=== PATIENT | female | born 1965 | race Two or more races ===

== ENCOUNTER 2017-08-23 20:35 | Inpatient (IN) | payer OTHER ==
--- NOTE | 2017-08-23 20:42 | PDOC ---
Rapid Medical Evaluation Time Seen by Provider: 08/23/17 20:36 Medical Evaluation: 08/23/17 20:37 I have performed a brief in-person evaluation of this patient. The patient presents with a chief complaint of: right leg pain- SCC Pertinent physical exam findings: VSS. AF. Lungs CTAB. conjunctiva pink, cap refill<3 seconds I have ordered the following: CBC, CMP, retic, sickle cell screen, ua, urine cx , dilaudid, benadryl The patient will proceed to the ED for further evaluation. Discharge Disposition - Diagnosis Leg pain, right - Referrals - Patient Instructions - Post Discharge Activity
[2017-08-23] MEDS ORDERED: HYDROmorphone HCL CARPU-JECT 2 MG/1 ML DISP.SYRIN IM ONE (20:44)
[2017-08-23 20:54] VITALS: BMI 32.4
--- NOTE | 2017-08-23 21:01 | PDOC ---
History of Present Illness - General History Source: Patient Exam Limitations: No Limitations - History of Present Illness Initial Comments: 08/23/17 21:31 The patient is a 52 year old female, with a significant past medical history of sickle cell anemia, enlarged spleen, and recent coccyx fracture, who presents to the emergency department with bilateral lower extremity pain since earlier today. Patient reports her symptoms are similar to her previous sickle cell crisis. She reports taking 2 Hydrocodone and Benadryl for her symptoms with minimal relief. She reports associated dizziness, but denies any fever, chills, cough, or headache. She denies any chest pain, shortness of breath, diaphoresis , or palpitations. She denies any abdominal pain, nausea, vomiting, diarrhea, or constipation. She denies any dysuria, hematuria, frequency, or urgency. Patient reports she recently moved from [place], where she was previously treated with Dilaudid or Morphine for her sickle cell crisis episodes. Patient reports she has had multiple blood transfusions for her sickle cell as a child, but none as an adult. Patient states she was recently evaluated by her insurance PCP, and states they noted high blood pressure, but did not start her on any medications. Allergies: NKDA Past Surgical History: Cholecystectomy, Section Social History: Non smoker. No ETOH or recreational drug use. PCP: Dr. Escobar <Shawnee Freeman - Last Filed: 08/23/17 21:31> <Imani Mcdaniel - Last Filed: 08/24/17 00:09> - General Chief Complaint: Pain, Acute Stated Complaint: SICKLE CELL CRISIS Time Seen by Provider: 08/23/17 20:36 Past History <Shawnee Freeman - Last Filed: 08/23/17 21:31> - Past Medical History COPD: No Other medical history: sickle cell disease - Surgical History Cholecystectomy: Yes - Suicide/Smoking/Psychosocial Hx Smoking History: Never smoked <Imani Mcdaniel - Last Filed: 08/24/17 00:09> - Past Medical History Allergies/Adverse Reactions: Allergies Allergy/AdvReac Type Severity Reaction Status Date / Time No Known Allergies Allergy Verified 08/23/17 20:38 Home Medications: Ambulatory Orders Folic Acid 1 mg PO DAILY 08/23/17 Gabapentin [Neurontin -] 300 mg PO DAILY 08/23/17 Oxycodone HCl/Acetaminophen [Percocet 5-325 mg Tablet] 1 - 2 tab PO Q6H PRN Review of Systems - Review of Systems Able to Perform ROS?: Yes Comments:: 08/23/17 21:31 GENERAL/CONSTITUTIONAL: No fever or chills. No weakness. HEAD, EYES, EARS, NOSE AND THROAT: No change in vision. No ear pain or discharge. No sore throat. GASTROINTESTINAL: No nausea, vomiting, diarrhea or constipation. GENITOURINARY: No dysuria, frequency, or change in urination. CARDIOVASCULAR: No chest pain or shortness of breath. RESPIRATORY: No cough, wheezing, or hemoptysis. MUSCULOSKELETAL: +Bilateral lower extremity pain. No joint or muscle swelling. No neck or back pain. SKIN: No rash NEUROLOGIC: No headache, vertigo, loss of consciousness, or change in strength/ sensation. ENDOCRINE: No increased thirst. No abnormal weight change. HEMATOLOGIC/LYMPHATIC: +Sickle cell anemia. No easy bleeding, or history of blood clots. ALLERGIC/IMMUNOLOGIC: No hives or skin allergy. <Shawnee Freeman - Last Filed: 08/23/17 21:31> *Physical Exam - Vital Signs Last Vital Signs Temp Pulse Resp BP Pulse Ox 98.6 F 76 20 152/98 99 08/23/17 20:38 08/23/17 20:38 08/23/17 20:38 08/23/17 20:38 08/23/17 20:38 - Physical Exam Comments: 08/23/17 21:32 Constitutional: Awake, alert, oriented. Speaking full sentences Head: Normocephalic. Atraumatic Eyes: PERRL. EOMI. Conjunctivae are not pale. ENT: Mucous membranes are moist and intact. Posterior pharynx without exudates or erythema. Uvula midline. Neck: Supple. Full ROM. No lymphadenopathy. Cardiovascular: Regular rate. Regular rhythm. S1, S2 regular. Distal pulses are 2+ and symmetric. Pulmonary/Chest: No evidence of respiratory distress. Clear to auscultation bilaterally No wheezing, rales or rhonchi. Abdominal: Soft and non-distended. There is no tenderness. No rebound, guarding or rigidity. No organomegaly. No palpable masses. Good bowel sounds. Back: No CVA tenderness. Musculoskeletal: No edema. No cyanosis. No clubbing. Full range of motion in all extremities. No calf tenderness. Radial/pedal pulses are intact and 2+ bilaterally Skin: Skin is warm and dry. No petechiae. No purpura. Neurological: Alert and oriented to person, place, and time. Cranial nerves II -XII are grossly intact. Normal speech. Strength is grossly symmetric. No sensory deficits. Psychiatric: Good eye contact. Normal interaction, affect and behavior. <Shawnee Freeman - Last Filed: 08/23/17 21:31> - Vital Signs Last Vital Signs Temp Pulse Resp BP Pulse Ox 98.6 F 76 20 152/98 99 08/23/17 20:38 08/23/17 20:38 08/23/17 20:38 08/23/17 20:38 08/23/17 20:38 <Imani Mcdaniel - Last Filed: 08/24/17 00:09> ED Treatment Course - Medications Given in the ED: ED Medications Discontinued Medications Generic Name Dose Route Start Last Admin Trade Name Freq PRN Reason Stop Dose Admin Hydromorphone HCl 2 mg 08/23/17 20:44 08/23/17 21:00 Dilaudid Injection - IM 08/23/17 20:45 Not Given ONCE ONE <Shawnee Freeman - Last Filed: 08/23/17 21:31> - LABORATORY CBC & Chemistry Diagram: 08/23/17 21:30 08/23/17 22:00 - Medications Given in the ED: ED Medications Discontinued Medications Generic Name Dose Route Start Last Admin Trade Name Freq PRN Reason Stop Dose Admin Hydromorphone HCl 2 mg 08/23/17 20:44 08/23/17 21:00 Dilaudid Injection - IM 08/23/17 20:45 Not Given ONCE ONE <Imani Mcdaniel - Last Filed: 08/24/17 00:09> Medical Decision Making - Medical Decision Making 08/23/17 21:40 a/p: 52yo female with SCD presents c/o b/l LE pain which is typical for her SCD and crisis -no cp/sob/cough/f/c -no abd pain -took 2 hydrocodone at home without relief of pain -normally treated in [facility] - recently relocated to [place] - does not have a bench hand machine -on folic acid, but not hydroxyurea -will check labs, retic count -will give ivf hydration, pain control, nausea control -will monitor and reassess 08/24/17 2250 pt still in pain, will remedicate, retic pending 08/24/17 00:08 pt states pain is improved, but not gone elevated retic and wbc and tbili concerning for acute pain crisis will admit microblog sent to [facility] 08/24/17 00:09 case discussed with [facility] - accepts pt to service <Imani Mcdaniel - Last Filed: 08/24/17 00:09> *DC/Admit/Observation/Transfer - Attestations Scribe Attestion: 08/23/17 21:32 Documentation prepared by Shawnee Freeman, acting as medical lab technician for Imani Mcdaniel DO. <Shawnee Freeman - Last Filed: 08/23/17 21:31> - Discharge Dispostion Decision to Admit order: Yes - Attestations Physician Attestion: 08/24/17 00:07 I, Dr. Imani Mcdaniel DO, attest that this document has been prepared under my direction and personally reviewed by me in its entirety. I further attest, that it accurately reflects all work, treatment, procedures and medical decision -making performed by me. <Imani Mcdaniel - Last Filed: 08/24/17 00:09> Diagnosis at time of Disposition: Leg pain, right, Sickle cell pain crisis - Discharge Dispostion Condition at time of disposition: Fair - Referrals Referrals: Samantha Escobar NP [Primary Care Provider] - - Patient Instructions - Post Discharge Activity
[2017-08-23] MEDS ORDERED: morphine CARPU-JECT 4 MG/1 ML DISP.SYRIN IVPUSH ONE ×2 (21:19→23:01)
[2017-08-23] MEDS ORDERED: ONDANSETRON 4 MG/2 ML VIAL IVPUSH ONE (21:19)
[2017-08-23] MEDS ORDERED: diphenhydrAMINE HCL 25 MG CAPSULE (FP) PO ONE ×2 (21:19→21:55)
[2017-08-23] MEDS ORDERED: SODIUM CHLORIDE 0.9% 1000 ML INFUS.BAG IV ONE ×2 (21:19→23:01)
[2017-08-23] MEDS ORDERED: ONDANSETRON 4 MG/2 ML VIAL ONE (21:33)
[2017-08-23] MEDS ORDERED: morphine SULFATE 4 MG/ML VIAL ONE ×2 (21:33→23:20)
[2017-08-23 21:39] LABS: BASO % 0.4 % (0-2.0); EOS % 0.1 % (0-4.5); HEMATOCRIT 32.2 % (32.4-45.2); HEMOGLOBIN 10.8 GM/dL (10.7-15.3); MCHC 33.5 g/dl (32.0-36.0); MEAN CELL VOLUME 77.5 fl (80-96); MEAN PLT VOLUME 8.6 fl (7.5-11.1); MONO % 4.4 % (3.8-10.2); NEUT % 83.1 % (42.8-82.8); PLATELET COUNT 366 K/MM3 (134-434); RBC 4.16 M/mm3 (3.60-5.2); RDW 18.9 % (11.6-15.6); WHITE BLOOD COUNT 16.6 K/mm3 (4.0-10.0)
[2017-08-23 22:53] LABS: ALBUMIN 3.8 g/dl (3.4-5.0); ANION GAP 8 (8-16); BLOOD UREA NITROGEN 13 mg/dL (7-18); CHLORIDE 104 mmol/L (98-107); CO2 26 mmol/L (21-32); CREATININE 0.6 mg/dL (0.55-1.02); GLUCOSE,RANDOM 121 mg/dL (74-106); POTASSIUM 4.6 mmol/L (3.5-5.1); SGOT/AST 19 U/L (15-37); SGPT/ALT 32 U/L (12-78); SODIUM 138 mmol/L (136-145)
[2017-08-23 22:55] LABS: ALK PHOS 128 U/L (45-117); BILIRUBIN,TOTAL 1.3 mg/dL (0.2-1.0); TOT PROT 7.9 g/dl (6.4-8.2)
[2017-08-23 23:10] LABS: URINE APPEARANCE CLEAR; URINE BILIRUBIN NEGATIVE (<2.0 mg/dL); URINE COLOR STRAW; URINE GLUCOSE (UA) NEGATIVE (NEGATIVE); URINE KETONE NEGATIVE (NEGATIVE); URINE LEUK ESTERASE TRACE (NEGATIVE); URINE NITRITE NEGATIVE (NEGATIVE); URINE UROBILINOGEN NEGATIVE mg/dL (0.2-1.0)
[2017-08-23 23:13] LABS: URINE PROTEIN 1+ (NEGATIVE)
[2017-08-23 23:14] LABS: EPI CELLS RARE /HPF (FEW); URINE MUCUS RARE
[2017-08-23 23:53] LABS: RETICULOCYTES 5.01 % (0.5-1.5)
[2017-08-24] MEDS ORDERED: morphine SULFATE 4 MG/ML VIAL IVPUSH PRN (00:29)
[2017-08-24] MEDS ORDERED: SODIUM CHLORIDE 1,000 ML IV SCH ×2 (00:30→13:15)
--- NOTE | 2017-08-24 00:54 | PN ---
Teaching Attending Note Name of Resident: Yakov Palmer ATTENDING PHYSICIAN STATEMENT I saw and evaluated the patient. I reviewed the resident's note and discussed the case with the resident. I agree with the resident's findings and plan as documented. SUBJECTIVE: Patient is a 52 year old woman with past medical history of sickle cell disease , cholecystectomy, laser therapy to right eye, enlarged spleen, and recent coccyx fracture (fell in the bathroom), who presents to the ER with bilateral lower extremity pain since earlier today. Patient reports her symptoms are similar to her previous sickle cell crisis. She reports taking 2 Hydrocodone and Benadryl for her symptoms with minimal relief. She reports associated dizziness, but denies any fever, chills, cough, or headache. She denies any chest pain, shortness of breath, diaphoresis, or palpitations. Her last sickle cell pain crisis was in May 2017a nd she got blood transfusion as a child. Her PCP noted that her BP was high last week but did not start her on any medications. She had a CT scan of her back to evaluate her coccyx fracture yesterday at [facility]. She has had 2 C-sections and has 2 children and just moved to the area from [place]. OBJECTIVE: Vital Signs Period Temp Pulse Resp BP Sys/Hutson Pulse Ox Last 24 Hr 98.6 F 76 20 152/98 99 HEENT: No Jaundice, eye redness or discharge, PERRLA, EOMI. Normocephalic, atraumatic. External ears are normal and hearing is grossly intact. No nasal discharge. Neck: Supple, nontender. No palpable adenopathy or thyromegaly. No JVD Chest: Good effort. Clear to auscultation and percussion. Heart: Regular. No S3, rub or murmur Abdomen: Not distended, soft, nontender and no HSM. No rebound or guarding. Normoactive bowel sounds. Ext: Peripheral pulses intact. No leg edema. Tender lumbosacral area. Skin: Warm and dry. No petechiae, rash or ecchymosis. Neuro: Alert. Oriented x3. CN 2-12 grossly intact. Sensation grossly intact in all four extremities and DTR are symmetric. Current Medications Generic Name Dose Route Start Last Admin Trade Name Freq PRN Reason Stop Dose Admin Heparin Sodium (Porcine) 5,000 unit 08/24/17 06:00 Heparin - SQ TID RAUL Sodium Chloride 1,000 mls @ 125 mls/hr 08/24/17 00:30 08/24/17 00:30 Normal Saline - IV 125 mls/hr ASDIR RAUL Administration Morphine Sulfate 4 mg 08/24/17 00:29 Morphine Sulfate IVPUSH Q4H PRN PAIN LEVEL 6-10 Home Medications Medication Instructions Recorded Folic Acid 1 mg PO DAILY 08/23/17 Gabapentin [Neurontin -] 300 mg PO DAILY 08/23/17 Oxycodone HCl/Acetaminophen 1 - 2 tab PO Q6H PRN 08/23/17 [Percocet 5-325 mg Tablet] Abnormal Lab Results 08/23/17 08/23/17 08/23/17 21:18 21:30 22:00 WBC 16.6 H Hct 32.2 L MCV 77.5 L RDW 18.9 H Neutrophils % 83.1 H Nucleated RBC % 1 H Retic Count 5.01 H Random Glucose 121 H Total Bilirubin 1.3 H Alkaline Phosphatase 128 H Urine Protein 1+ H ASSESSMENT AND PLAN: 1. Sickle cell pain crisis - Will treat her with IV morphine 2 mg q 4 hours PRN , IV NS at 125 ml/hour, folic acid and consult hematology - consider hydroxyurea therapy! Send blood for HB electrophoresis since her genotype is unknown. Leukocytosis likely due to sickle cell crisis. No other evidence of infection - so no need for antibiotics. Will monitor closely. 2. Coccyx fracture - Get result of CT scan from [facility] and consult PT. 3. DVT prophylaxis - Heparin 5000u sq tid 4. Advance directives - Full code
[2017-08-24] MEDS: HEPARIN NA (PORCINE) 5,000 UNITS/ML 1ML VIAL SQ SCH ×3 (06:00→21:17)
[2017-08-24] MEDS ORDERED: morphine SULFATE 4 MG/ML VIAL ONE (06:11)
[2017-08-24] MEDS ORDERED: HEPARIN NA (PORCINE) 5,000 UNITS/ML 1ML VIAL ONE (06:19)
--- NOTE | 2017-08-24 11:13 | EKG ---
Test Reason : Blood Pressure : / mmHG Vent. Rate : 075 BPM Atrial Rate : 075 BPM P-R Int : 150 ms QRS Dur : 084 ms QT Int : 386 ms P-R-T Axes : 049 040 043 degrees QTc Int : 431 ms NORMAL SINUS RHYTHM NORMAL ECG NO PREVIOUS ECGS AVAILABLE Confirmed by DONTE RENTERIA MD ([id number]) on 08/24/2017 11:12:34 AM Referred By: Confirmed By:DONTE RENTERIA MD
[2017-08-24] MEDS ORDERED: KETOROLAC TROMETHAMINE 30 MG/1 ML VIAL IVPUSH PRN (12:34)
--- NOTE | 2017-08-24 12:47 | CONSULT ---
Consult Consult Specialty:: Hematology - History of Present Illness History of Present Illness: 52 year old woman with past medical history of sickle cell disease, cholecystectomy, laser therapy to right eye, enlarged spleen, and recent coccyx fracture (fell in the bathroom), who presents to the ER with bilateral lower extremity pain since earlier today. Patient reports her symptoms are similar to her previous sickle cell crisis. She reports taking 2 Hydrocodone and Benadryl for her symptoms with minimal relief. She reports associated dizziness, but denies any fever, chills, cough, or headache. She denies any chest pain, shortness of breath, diaphoresis, or palpitations. Her last sickle cell pain crisis was in May 2017a nd she got blood transfusion as a child. Her PCP noted that her BP was high last week but did not start her on any medications. She had a CT scan of her back to evaluate her coccyx fracture yesterday at [facility]. She has had 2 C-sections and has 2 children and just moved to the area from [place]. - History Source History Provided By: Patient - Smoking History Smoking history: Never smoked Home Medications - Allergies Allergies/Adverse Reactions: Allergies Allergy/AdvReac Type Severity Reaction Status Date / Time No Known Allergies Allergy Verified 08/23/17 20:38 - Home Medications Home Medications: Ambulatory Orders Folic Acid 1 mg PO DAILY 08/23/17 Gabapentin [Neurontin -] 300 mg PO DAILY 08/23/17 Oxycodone HCl/Acetaminophen [Percocet 5-325 mg Tablet] 1 - 2 tab PO Q6H PRN Famotidine [Pepcid] 1 tab PO HS 08/24/17 Hydrocodone/Acetaminophen [Hydrocodone-Acetamin 5-325 mg] 1 tab PO Q6H 08/24/17 Hydrocortisone 2.5% Topical Cr [Anusol-Hc -] 1 unit PRN 08/24/17 Naproxen 500 mg PO BID 08/24/17 Physical Exam Vital Signs: Vital Signs Temperature 98.5 F 08/24/17 07:15 Pulse Rate 66 08/24/17 07:15 Respiratory Rate 18 08/24/17 07:15 Blood Pressure 151/87 08/24/17 07:15 O2 Sat by Pulse Oximetry (%) 97 08/24/17 07:15 Constitutional: Yes: Mild Distress HENT: Yes: Atraumatic Neck: Yes: Supple, Trachea Midline Cardiovascular: Yes: Regular Rate and Rhythm Respiratory: Yes: Regular, CTA Bilaterally Gastrointestinal: Yes: Normal Bowel Sounds, Soft, Abdomen, Obese Extremities: Yes: WNL, Other (tenderness all over ricky LLE LLE calf tenderness) Edema: No Labs: CBC, BMP 08/23/17 21:30 08/23/17 22:00 Imaging - Results X-ray: Pending Assessment/Plan SC ? SS? ( pt unaware) Hemoglobin electrophoresis daily CBC/LDH/Retic count --LOS, presently not in avid hemolysis. ordered US LE to r/o DVT supportive care with IVF/Pain management/folate coccyx fracture-mgmt per primary needs f.u with [facility] S[facility] cell clinic
[2017-08-24] MEDS ORDERED: MORPHINE SULFATE 10 MG/1 ML *VIAL IVPUSH PRN (13:10)
--- NOTE | 2017-08-24 15:55 | PN ---
Teaching Attending Note Name of Resident: Young Kenney ATTENDING PHYSICIAN STATEMENT I saw and evaluated the patient. I reviewed the resident's note and discussed the case with the resident. I agree with the resident's findings and plan as documented. SUBJECTIVE:c/o total LLE pain. diffuse pain not worse in certain area. fell in the bathroom the other day and went to [facility] who told her she fractured her coccyx and was sent home. pt is unable to ambulate due to the pain. previous painful crisis she has full body pain. denies Cp, SOB, fever, chills, N/v/C/D just moved here from [place] only was hospitalized as a child once for sickle cell crisis and received blood transfusion OBJECTIVE: Last Vital Signs Temp Pulse Resp BP Pulse Ox 98.1 F 77 18 138/86 97 08/24/17 12:43 08/24/17 12:43 08/24/17 13:04 08/24/17 12:43 08/24/17 13:04 General NAD CV S1 s2 RRR no murmur/rub/gallop Lungs CTA B/L no wheezing/rales/ronchi Abdomen soft NT/ND Back no bone or muscle point tenderness. some restriction in forward flexion at the hip due to pain Extremities diffuse muscular tenderness of the leg. refuses passive ROM. is able to slightly flex at the knee. ASSESSMENT AND PLAN: 52yo F with PMH Sickle cell disease and recent coccyx fracture presenting for severe sudden onset of RLE pain 1. RLE pain- possible radicular pain with recent fracture vs DVT vs sickle cell crisis. check doppler to r/o DVT. check XR of the spine to evaluate for fracture. less likely could be sickle cell crisis. not able to do detailed physical exam due to pain. medical release form sent to obtain records from [facility] to see what imaging studies were done. start high dose IVF, supplemental oxygen and pain control. if this is truely crisis and has hx of crisis every 2 months she would benefit from starting hydroxyurea. would hold for now. heme consulted. PT eval 2. Leukcytosis- likely reactive vs from sickle crisis. UA negative. will hold abx at this time 3. DVT ppx- hep sq
--- NOTE | 2017-08-24 21:14 | PN ---
Physical Exam: SUBJECTIVE: Patient seen and examined at bedside. Pt states she has pain in LLE. OBJECTIVE: Vital Signs Period Temp Pulse Resp BP Sys/Hutson Pulse Ox Last 24 Hr 98.0 F-98.5 F 66-77 18-20 138-151/73-87 97-97 Gen: initially lying comfortably in bed HEENT: NCAT Neck: supple no jvd Cardio: rrr, normal s1s2, no m/r/g Pulm: cta b/l Abd: soft nontender, normal bs Ext: 2+ pulses, no edema. LLE variably tender to palpation. ROM exam limited by pain Neuro: strength intact throughout. Sensation intact throughout. Straight leg test not done b/c of pain Laboratory Results - last 24 hr 08/23/17 08/23/17 08/23/17 21:18 21:30 21:30 WBC 16.6 H RBC 4.16 Hgb 10.8 Hct 32.2 L MCV 77.5 L MCH 26.0 MCHC 33.5 RDW 18.9 H Plt Count 366 MPV 8.6 Absolute Neuts (auto) 13.8 Neutrophils % 83.1 H Lymphocytes % 12.0 Monocytes % 4.4 Eosinophils % 0.1 Basophils % 0.4 Nucleated RBC % 1 H Retic Count 5.01 H Sickle Cell Screen Sodium Cancelled Potassium Cancelled Chloride Cancelled Carbon Dioxide Cancelled Anion Gap Cancelled BUN Cancelled Creatinine Cancelled Creat Clearance w eGFR Cancelled Random Glucose Cancelled Calcium Cancelled Total Bilirubin Cancelled AST Cancelled ALT Cancelled Alkaline Phosphatase Cancelled LD Total Total Protein Cancelled Albumin Cancelled Urine Color Straw Urine Appearance Clear Urine pH 7.0 Ur Specific Roggen 1.009 Urine Protein 1+ H Urine Glucose (UA) Negative Urine Ketones Negative Urine Blood Negative Urine Nitrite Negative Urine Bilirubin Negative Urine Urobilinogen Negative Ur Leukocyte Esterase Trace Urine WBC (Auto) 12 Urine RBC (Auto) <1 Ur Epithelial Cells Rare Urine Mucus Rare 08/23/17 08/23/17 08/24/17 21:30 22:00 10:30 WBC RBC Hgb Hct MCV MCH MCHC RDW Plt Count MPV Absolute Neuts (auto) Neutrophils % Lymphocytes % Monocytes % Eosinophils % Basophils % Nucleated RBC % Retic Count Sickle Cell Screen Pos Sodium 138 Potassium 4.6 Chloride 104 Carbon Dioxide 26 Anion Gap 8 BUN 13 Creatinine 0.6 Creat Clearance w eGFR > 60 Random Glucose 121 H Calcium 9.0 Total Bilirubin 1.3 H AST 19 ALT 32 Alkaline Phosphatase 128 H LD Total 219 Total Protein 7.9 Albumin 3.8 Urine Color Urine Appearance Urine pH Ur Specific Roggen Urine Protein Urine Glucose (UA) Urine Ketones Urine Blood Urine Nitrite Urine Bilirubin Urine Urobilinogen Ur Leukocyte Esterase Urine WBC (Auto) Urine RBC (Auto) Ur Epithelial Cells Urine Mucus Active Medications Generic Name Dose Route Start Last Admin Trade Name Freq PRN Reason Stop Dose Admin Folic Acid 1 mg 08/25/17 10:00 Folic Acid - PO DAILY RAUL Heparin Sodium (Porcine) 5,000 unit 08/24/17 06:00 08/24/17 14:16 Heparin - SQ 5,000 unit TID RAUL Administration Sodium Chloride 1,000 mls @ 150 mls/hr 08/24/17 13:15 08/24/17 17:54 Normal Saline - IV 150 mls/hr ASDIR RAUL Administration Ketorolac Tromethamine 30 mg 08/24/17 12:34 Toradol Injection - IVPUSH 08/29/17 12:33 Q6H PRN PAIN LEVEL 1-5 Morphine Sulfate 4 mg 08/24/17 13:10 08/24/17 16:56 Morphine Injection - IVPUSH 4 mg Q4H PRN Administration PAIN LEVEL 7 - 10 ASSESSMENT/PLAN: Pt is a 52 y/o F with H sickle cell disease (per pt diagnosed in more than 20 years ago) and recent coccyx fracture (diagnosed at [facility]). #LLE pain -? sickle crisis -? radiculopathy -Spine XR -U/S to r/o DVT -f/u records from [facility] -pain control #Sickle cell -Heme consulted -HbS pending -frequent crises #Leukocytosis -? 2/2 pain and crisis -afebrile -f/u labs tomorrow #FEN -NS -lytes wnl -reg diet #PPx -HSQ #Dispo -Med surg Young Kenney MD PGY-1 IM Visit type - Emergency Visit Emergency Visit: Yes ED Registration Date: 08/24/17 Care time: The patient presented to the Emergency Department on the above date and was hospitalized for further evaluation of their emergent condition. - New Patient This patient is new to me today: Yes Date on this admission: 08/24/17 - Critical Care Critical Care patient: No - Discharge Referral Referred to [facility] Med P.C.: No
[2017-08-25] MEDS: HEPARIN NA (PORCINE) 5,000 UNITS/ML 1ML VIAL SQ SCH ×2 (06:17→13:29)
[2017-08-25 08:10] LABS: BASO % 0.5 % (0-2.0); EOS % 5.2 % (0-4.5); HEMATOCRIT 30.1 % (32.4-45.2); HEMOGLOBIN 10.2 GM/dL (10.7-15.3); LYMPH % 30.3 % (8-40); MCHC 33.7 g/dl (32.0-36.0); MEAN CELL VOLUME 77.3 fl (80-96); MEAN PLT VOLUME 8.9 fl (7.5-11.1); MONO % 5.8 % (3.8-10.2); NEUT % 58.2 % (42.8-82.8); PLATELET COUNT 301 K/MM3 (134-434); WHITE BLOOD COUNT 15.1 K/mm3 (4.0-10.0)
[2017-08-25 08:54] LABS: ALBUMIN 3.4 g/dl (3.4-5.0); ANION GAP 8 (8-16); BLOOD UREA NITROGEN 11 mg/dL (7-18); CALCIUM 8.7 mg/dL (8.5-10.1); CHLORIDE 107 mmol/L (98-107); CO2 25 mmol/L (21-32); GLUCOSE,RANDOM 89 mg/dL (74-106); POTASSIUM 4.1 mmol/L (3.5-5.1); SODIUM 140 mmol/L (136-145)
[2017-08-25 08:58] LABS: ALK PHOS 119 U/L (45-117); BILIRUBIN,TOTAL 1.3 mg/dL (0.2-1.0); CREATININE 0.6 mg/dL (0.55-1.02); LDH 241 U/L (84-246); PHOSPHOROUS 3.4 mg/dL (2.5-4.9); SGOT/AST 18 U/L (15-37); SGPT/ALT 28 U/L (12-78); TOT PROT 7.1 g/dl (6.4-8.2)
[2017-08-25] MEDS ORDERED: FOLIC ACID 1 MG TABLET (FP) PO SCH (10:00)
[2017-08-25] MEDS ORDERED: PT OWN MED DRAWER 7, Y5N ONE (10:16)
--- NOTE | 2017-08-25 14:07 | PN ---
Progress Note (short form) - Note Progress Note: Pt seen and examined. feels much better as per her in terms of her lower extremity pain. coccyx still bother her Constitutional: Yes: No distress HENT: Yes: Atraumatic Neck: Yes: Supple, Trachea Midline Cardiovascular: Yes: Regular Rate and Rhythm Respiratory: Yes: Regular, CTA Bilaterally Gastrointestinal: Yes: Normal Bowel Sounds, Soft, Abdomen, Obese Extremities: Yes: WNL, Edema: NoLast Vital Signs Temp Pulse Resp BP Pulse Ox 98.2 F 73 20 142/83 99 08/25/17 06:00 08/25/17 06:00 08/25/17 12:00 08/25/17 06:00 08/25/17 12:00 CBC, BMP 08/25/17 06:10 08/25/17 06:10 Current Medications Generic Name Dose Route Start Last Admin Trade Name Freq PRN Reason Stop Dose Admin Folic Acid 1 mg 08/25/17 10:00 08/25/17 10:39 Folic Acid - PO 1 mg DAILY RAUL Administration Heparin Sodium (Porcine) 5,000 unit 08/24/17 06:00 08/25/17 13:29 Heparin - SQ 5,000 unit TID RAUL Administration Sodium Chloride 1,000 mls @ 150 mls/hr 08/24/17 13:15 08/24/17 17:54 Normal Saline - IV 150 mls/hr ASDIR RAUL Administration Ketorolac Tromethamine 30 mg 08/24/17 12:34 Toradol Injection - IVPUSH 08/29/17 12:33 Q6H PRN PAIN LEVEL 1-5 Morphine Sulfate 4 mg 08/24/17 13:10 08/24/17 16:56 Morphine Injection - IVPUSH 4 mg Q4H PRN Administration PAIN LEVEL 7 - 10 SC ? SS? ( pt unaware) Hemoglobin electrophoresis--pending Elevated white cells-likely nucleated reds being counted too pain much controlled coccyx fracture-mgmt per primary make sure US is negative for DVT needs f.u with [facility] Sickle cell clinic [facility] sickle cell clinic: 08/29/2017 1000am gail [address] [phone]
[2017-08-25] MEDS ORDERED: guaiFENesin 200 MG/10 ML 10 ML UNIT-DOSE CUPS PO PRN (14:27)
[2017-08-25] MEDS ORDERED: ACETAMINOPHEN 325 MG TABLET (FP) PO PRN (14:30)
[2017-08-25] MEDS ORDERED: oxyCODONE HCL 5 MG TABLET PO PRN (14:30)
[2017-08-25 15:37] VITALS: BP 127/66; PULSE 69; TEMP 98.4
--- NOTE | 2017-08-25 16:16 | PN ---
Teaching Attending Note Name of Resident: Young Kenney ATTENDING PHYSICIAN STATEMENT I saw and evaluated the patient. I reviewed the resident's note and discussed the case with the resident. I agree with the resident's findings and plan as documented. SUBJECTIVE:c/o coccyx pain but states pain in the leg has resolved. denies CP, SOB, fever, chills, N/V/C/D, bladder/bowel incontinence OBJECTIVE: Last Vital Signs Temp Pulse Resp BP Pulse Ox 98.4 F 69 18 127/66 99 08/25/17 15:36 08/25/17 15:36 08/25/17 15:36 08/25/17 15:36 08/25/17 12:00 General NAD CV S1 s2 RRR no murmur/rub/gallop Lungs CTA B/L no wheezing/rales/ronchi Abdomen soft NT/ND Back + coccyx point tenderness. no muscle tenderness. good flexion at the hips. Extremities no muscular tenderness of the thigh or calf. good strength on flexion/extension at the hip and knee. sensation grossly intact. ASSESSMENT AND PLAN: 52yo F with PMH Sickle cell disease and recent coccyx fracture presenting for severe sudden onset of RLE pain 1. RLE pain- possible radicular pain with recent fracture vs DVT vs sickle cell crisis. clinically improved. pain controlled without medication. will f/u doppler and XR. if both are negative. (expected to have fx at level of coccyx but assessing for other fx). can d/c home. will need to f/u with sickle cell clinic for further management. PT eval. 2. Leukcytosis- likely reactive vs from sickle crisis. UA negative. will hold abx at this time 3. DVT ppx- hep sq 4. d/c home pending imaging studies
--- NOTE | 2017-08-25 18:54 | DS ---
Physical Exam: SUBJECTIVE: Patient seen and examined at bedside. No complaints at this time. Pt states the crisis has gone. OBJECTIVE: Vital Signs Period Temp Pulse Resp BP Sys/Hutson Pulse Ox Last 24 Hr 98.2 F-98.5 F 69-73 18-20 127-143/66-83 99-99 PHYSICAL EXAM Gen: sitting in bed, nad HEENT: NCAT, perrl, eomi, moist membranes Neck: supple no jvd Cardiac: rrr norm s1s2 Pulm: cta Abd: soft nontender Ext: normal ROM, no tenderness to palpation Neuro: no focal deficits. LABS Laboratory Results - last 24 hr 08/25/17 08/25/17 08/25/17 06:10 06:10 06:10 WBC 15.1 H RBC 3.90 Hgb 10.2 L Hct 30.1 L MCV 77.3 L MCH 26.0 MCHC 33.7 RDW 19.0 H Plt Count 301 MPV 8.9 Absolute Neuts (auto) 8.8 Neutrophils % 58.2 D Lymphocytes % 30.3 D Monocytes % 5.8 Eosinophils % 5.2 H D Basophils % 0.5 Nucleated RBC % 1 H Retic Count 5.59 H D Sodium 140 Potassium 4.1 Chloride 107 Carbon Dioxide 25 Anion Gap 8 BUN 11 Creatinine 0.6 Creat Clearance w eGFR > 60 Random Glucose 89 Calcium 8.7 Phosphorus 3.4 Magnesium 2.0 Total Bilirubin 1.3 H AST 18 ALT 28 Alkaline Phosphatase 119 H LD Total 241 Total Protein 7.1 Albumin 3.4 HOSPITAL COURSE: Date of Admission:08/24/17 Date of Discharge: 08/25/17 Pt is a 52 y/o F with PMH sickle cell disease (per pt diagnosed in more than 20 years ago) and recent coccyx fracture (diagnosed at [facility]) who presented to the ED with sickle crisis. She was put on Obs. Pt's sickle cell crisis presented with pain in the LLE. Pt states that she may have pain in any region of her body during a sickling crisis, but this time it was her left leg. 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 A LLE U/S was done, which ruled out DVT as a cause of her pain. Pt developed leukocytosis, which was thought to be an expected biproduct of painful sickling crisis. After a night in the hospital, pain has resolved altogether. Pt states her crisis has passed. She stated that she recently had a diagnosis of coccygeal fracture at [facility]. A repeat L/S spine Xray was done and showed no obvious abnormalities. Pt is currently stable for d/c home. Minutes to complete discharge: 30 Discharge Summary Reason For Visit: SICKLE CELL, PAIN MANAGEMENT Condition: Good - Instructions Diet, Activity, Other Instructions: You were in the hospital because of leg pain and sickle cell crisis. You need to follow up at the [facility] sickle cell clinic: 08/29/2017 10:00am gail [address] [place] [address]. [phone] If you have any more symptoms, please return to the emergency department. Referrals: Samantha Escobar NP [Primary Care Provider] - 1 Week Petra Saldaña MD [Staff Physician] - 1 Week Disposition: HOME - Home Medications Comprehensive Discharge Medication List: Ambulatory Orders Folic Acid 1 mg PO DAILY 08/23/17 Gabapentin [Neurontin -] 300 mg PO DAILY 08/23/17 Oxycodone HCl/Acetaminophen [Percocet 5-325 mg Tablet] 1 - 2 tab PO Q6H PRN Famotidine [Pepcid] 1 tab PO HS 08/24/17 Hydrocodone/Acetaminophen [Hydrocodone-Acetamin 5-325 mg] 1 tab PO Q6H 08/24/17 Hydrocortisone 2.5% Topical Cr [Anusol-Hc -] 1 unit PRN 08/24/17 Naproxen 500 mg PO BID 08/24/17 Folic Acid - 1 mg PO DAILY #30 tablet 08/25/17 Guaifenesin [Robitussin -] 10 ml PO Q8H PRN #1 bottle 08/25/17 This patient is new to me today: No Emergency Visit: No Critical Care patient: No - Discharge Referral Referred to [facility] No
[2017-08-30 14:13] LABS: HGB SOLUBILITY Positive (Negative); Hgb A 0 % (96.4-98.8); Hgb C 45.8 % (0.0); Hgb F 0 % (0.0-2.0)
== END 2017-08-25 17:44 | disposition home or self-care (01) | DRG 812 ==
LOC: JER 20:35 → JERBED 08-24 00:07 → UNDOADMIN 08-24 00:19 → JERBED 08-24 00:19 → J8W 08-24 12:40
PROVIDERS: ADMIT Internal Medicine; ATTEND Internal Medicine
DX: D57.00 Hb-SS disease with crisis, unspecified (principal); R16.1 Splenomegaly, not elsewhere classified; S32.2XXG Fracture of coccyx, subsequent encounter for fracture with delayed healing; W18.30XD Fall on same level, unspecified, subsequent encounter; D72.829 Elevated white blood cell count, unspecified; M79.604 Pain in right leg
CPT/HCPCS: 36415; 71045-TC-FY; 72100-TC-FY; 80053; 81003; 81015; 83021; 83615; 83735; 84100; 85025; 85044; 85660; 87086; 87186; 93005; 93010; 93971-TC; 97116-GP; 97161-GP; 99283-25; J1644; J7030

== ENCOUNTER 2017-09-28 11:33 | Emergency (ER) | payer MEDICARE, OTHER ==
[2017-09-28 11:41] VITALS: BMI 32.7
--- NOTE | 2017-09-28 11:48 | PDOC ---
History of Present Illness - General Chief Complaint: Pain Stated Complaint: SICKLE CELL CRISIS, KNEE PAIN Time Seen by Provider: 09/28/17 11:47 History Source: Patient, Rod Buster Used - History of Present Illness Initial Comments: 09/28/17 13:11 52 year old female with sickle cell anemia presents to ED today for right hip pain, right knee pain since last night. She states she has had a productive ( yellow) cough and nasal congestion x4 days prior to her pain developing. She states these symptoms feel similar to her prior sickle cell crisises. 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 She states she has had a cholecystectomy, but she still has her spleen. She states she took ibuprofen 600 mg last night and this morning, which has slightly relieved her pain. She states morphine and dilaudid make her itchy and she does not like to take them. She also complains of a rash to her right arm, right abdomen and back. Past History - Past Medical History Allergies/Adverse Reactions: Allergies Allergy/AdvReac Type Severity Reaction Status Date / Time morphine Allergy Severe Rash Verified 09/28/17 11:38 Home Medications: Ambulatory Orders Gabapentin [Neurontin -] 300 mg PO DAILY 08/23/17 Oxycodone HCl/Acetaminophen [Percocet 5-325 mg Tablet] 1 - 2 tab PO Q6H PRN Famotidine [Pepcid] 1 tab PO HS 08/24/17 Hydrocortisone 2.5% Topical Cr [Anusol-Hc -] 1 unit TP PRN PRN 08/24/17 Naproxen 500 mg PO BID 08/24/17 Folic Acid - 1 mg PO DAILY #30 tablet 08/25/17 Ibuprofen [Motrin -] 600 mg PO TID PRN 09/28/17 Anemia: Yes (sickle cell anemia) COPD: No - Surgical History Cholecystectomy: Yes - Suicide/Smoking/Psychosocial Hx Smoking History: Never smoked Have you smoked in the past 12 months: No Information on smoking cessation initiated: No Hx Alcohol Use: No Drug/Substance Use Hx: No Substance Use Type: None Hx Substance Use Treatment: No Review of Systems - Review of Systems Comments:: 09/28/17 13:15 General: denies fever, chills, night sweats, generalized weakness. HEENT: admits to nasal congestion. denies sore throat, rhinorrhea, ear pain. Heart: denies chest pain, palpitations, syncope, lower extremity swelling. Respiratory: admits to cough and sputum production. denies shortness of breath, hematemesis. Abdomen: denies abdominal pain, nausea, vomiting, diarrhea, constipation, blood in stool. : denies dysuria, urinary frequency, hematuria. Musculoskeletal: admits to right knee pain and swelling, right hip pain. Neurological: admits to headache. denies dizziness, numbness, tingling. Skin: denies rash, laceration, abrasion. *Physical Exam - Vital Signs Last Vital Signs Temp Pulse Resp BP Pulse Ox 98.5 F 62 18 135/44 99 09/28/17 11:39 09/28/17 11:39 09/28/17 11:39 09/28/17 11:39 09/28/17 11:39 - Physical Exam Comments: 09/28/17 13:18 General: awake, alert and oriented X3, no apparent distress HEENT: head is normocephalic, atraumatic. EOMI. PERRLA. Neck: supple without lymphadenopathy Heart: regular rhythm. no murmurs, rubs or gallops. Lungs: clear to auscultation bilaterally. no crackles, rhonchi or wheezing. no stridor. Abdomen: soft, nontender. normal bowel sounds. no rebound, guarding, masses. Extremities: Pain to palpation of right hip. No pain to palpation of right knee. Right knee is minimally swollen as compared to the left. Pt is able to bear weight and walk unassisted. Peripheral pulses intact. No leg edema. Neurological: Alert. Oriented x3. CN 2-12 grossly intact. Moves all four extremities. Skin: erythematous, edmatous, blanching rash noted to right upper arm, left upper back, and right abdomen, consistent with hives. ED Treatment Course - LABORATORY CBC & Chemistry Diagram: 09/28/17 13:00 09/28/17 12:25 Medical Decision Making - Medical Decision Making 09/28/17 13:21 Initial history performed via auto tune up mechanic - [id number]. Initial Vital Signs Temp Pulse Resp BP Pulse Ox 98.5 F 62 18 135/44 99 09/28/17 11:39 09/28/17 11:39 09/28/17 11:39 09/28/17 11:39 09/28/17 11:39 Case discussed with attending, Dr. Rob. Based on the patient's symptoms I am concerned for an acute sickle cell crisis. Pending CBC, retic count, CMP, CXR, right knee XR and R hip/pelvis XR. 09/28/17 13:29 CXR read as negative for acute pulmonary disease. 09/28/17 13:48 Pt now has IV line. Canceling IM Toradol. Ordered IV. 09/28/17 13:55 Retic count elevated. R knee XR read as negative. R hip/pelvis XR read: sclerotic changes in the right acetabulum or right femoral head. Radiolucency is noted in the superior medial aspect o the right femoral head. Avascular necrosis of the right femoral head cannot be entirely excluded. MRI of the right hip may be considered for further evaluation. 09/28/17 14:08 Pt reassessed, she states her pain has improved but the rash on her arm is still itching. 09/28/17 14:29 Laboratory Results - last 24 hr 09/28/17 09/28/17 09/28/17 12:25 13:00 13:00 WBC 11.1 H RBC 3.92 Hgb 10.6 L Hct 31.1 L MCV 79.2 L MCH 27.1 MCHC 34.3 RDW 19.7 H Plt Count 279 MPV 8.8 Retic Count 4.39 H D Sodium 139 Potassium 4.7 Chloride 105 Carbon Dioxide 28 Anion Gap 6 L BUN 13 Creatinine 0.8 Creat Clearance w eGFR > 60 Random Glucose 97 Calcium 9.2 Total Bilirubin 1.4 H AST 31 ALT 44 Alkaline Phosphatase 128 H Total Protein 7.7 Albumin 3.9 09/28/17 14:59 Pt reassessed, states she is feeling better. Pt was able to ambulate on her own to the restroom. Pt will be discharged. I spoke with the patient about her results and the plan for her care via auto tune up mechanic - [id number]. She agrees with the plan. *DC/Admit/Observation/Transfer Diagnosis at time of Disposition: Sickle cell pain crisis - Discharge Dispostion Disposition: HOME Condition at time of disposition: Improved Decision to Admit order: No - Referrals Referrals: Davis Lopes MD [Staff Physician] - - Patient Instructions Printed Discharge Instructions: DI for Sickle Cell Anemia, Pain Crisis -- Adult Additional Instructions: Te vieron hoy por pillo crisis de dolor de clulas falciformes. Usted recibi lquidos intravenosos, Toradol para el dolor y Benadryl intravenoso para fitzgerald erupcin. Tu rodilla derecha XR era normal. Tu radiografa de cadera derecha no revel ningn cambio en tu radiografa previa de cadera. Tu radiografa de trax era normal. Por favor, Mantngase hidratado bebiendo moriah agua. [place] Motrin para fitzgerald dolor. Por favor, london un alergista para fitzgerald erupcin. le hemos dado la informacin para el doctor Moses. Por favor, edda pillo anabel con l. El seguimiento con fitzgerald mdico de atencin primaria en un plazo de 7 martínez. Por favor regrese al Departamento de emergencias si se desarrollan nuevos, empeorando o afectando los sntomas. Print Language: BELARUSIAN - Post Discharge Activity Forms/Work/School Notes: Back to Work
[2017-09-28] MEDS ORDERED: SODIUM CHLORIDE 1,000 ML IV STA (12:24)
[2017-09-28] MEDS ORDERED: KETOROLAC TROMETHAMINE 60 MG/2 ML VIAL IM ONE (13:07)
[2017-09-28] MEDS ORDERED: diphenhydrAMINE HCL 25 MG CAPSULE (FP) PO ONE ×2 (13:10→13:41)
[2017-09-28 13:19] LABS: HEMATOCRIT 31.1 % (32.4-45.2); HEMOGLOBIN 10.6 GM/dL (10.7-15.3); MCH 27.1 pg (25.7-33.7); MCHC 34.3 g/dl (32.0-36.0); MEAN CELL VOLUME 79.2 fl (80-96); MEAN PLT VOLUME 8.8 fl (7.5-11.1); PLATELET COUNT 279 K/MM3 (134-434); RBC 3.92 M/mm3 (3.60-5.2); RDW 19.7 % (11.6-15.6); WHITE BLOOD COUNT 11.1 K/mm3 (4.0-10.0)
--- NOTE | 2017-09-28 13:28 | PDOC ---
Attending Attestation - Medical Decision Making 09/28/17 13:38 Knee X-ray was reviewed by Dr. Rob and over-read by Radiology. The visualized osseous structures appear intact. No evidence of fracture, dislocation, or large suprapatellar joint effusion. Mild narrowing of the medial tibiofemoral joint compartment. No radiopaque foreign body seen. Hip/Pelvic X-ray was reviewed by Dr. Rob and over-read by Radiology. Impression: Sclerotic changes in the right acetabulum or right femoral head. Radiolucency is noted in the superior medial aspect of the right femoral head. Avascular necrosis of the right femoral head cannot be entirely excluded. MRI of the right hip may be considered for further evaluation. Chest X-ray was reviewed by Dr. Rob and over-read by Radiology. Impression: No evidence of active pulmonary disease. No pleural effusion, or pneumothorax is seen. No evidence of CHF. Documentation prepared by Sherine Curran, acting as medical records analyst for Ede Rob MD. <Sherine Curran - Last Filed: 09/28/17 13:38> - Resident Resident Name: Ana Hair - ED Attending Attestation I have performed the following: I have examined & evaluated the patient, The case was reviewed & discussed with the resident, I agree w/resident's findings & plan, Exceptions are as noted - HPI HPI: 09/28/17 13:28 The patient is a 52 year old female with a significant past medical history of sickle cell anemia, necrosis of right hip, who presents to the emergency department complaining of cold symptoms, rash, and RLE pain since last night. The patient reports cough and congestion that began this week, she states feels like a cold. Her RLE pain is localized to her knee and hip, which she reports is alleviated by Motrin and feels like her usual SC crisis. She also reports a rash to her RUE, back, legs that is itchy and minimally alleviated with Benadryl. The patient was admitted last month for a sickle cell crisis. The patient denies chest pain, shortness of breath, headache, and dizziness. Denies fevers, chills, nausea, vomiting, diarrhea, and constipation. Denies dysuria, frequency, urgency, and hematuria. Allergies: intravenous morphine (feels fiery) Past surgical history: cholecystectomy (inflamed but intact spleen), x2, Social history: No reported cigarette, alcohol, or drug use. PCP: Dr. Samantha Escobar - Physicial Exam PE: 09/28/17 13:33 GENERAL: Awake, alert, and fully oriented, in no acute distress HEAD: No signs of trauma EYES: PERRLA, EOMI, sclera anicteric, conjunctiva clear ENT: Auricles normal inspection, hearing grossly normal, nares patent, oropharynx clear without exudates. Moist mucosa NECK: Normal ROM, supple, no lymphadenopathy, JVD, or masses LUNGS: Breath sounds equal, clear to auscultation bilaterally. No wheezes, and no crackles HEART: Regular rate and rhythm, normal S1 and S2, no murmurs, rubs or gallops ABDOMEN: Soft, nontender, normoactive bowel sounds. No guarding, no rebound. No masses EXTREMITIES: Normal range of motion, no edema. No clubbing or cyanosis. No cords, erythema, or tenderness. WWP NEUROLOGICAL: Normal speech, cranial nerves intact, negative pronator drift, 5/ 5 strength in all 4 extremities, normal sensation to light touch in all 4 extremities, normal cerebellar exam, normal gait, normal reflexes and tone SKIN: Arms, back, legs with erythematous, edematous wheals consistent with urticaria - Medical Decision Making 09/28/17 13:34 52yo F presents with multiple complaints including cold symptoms, RLE pain consistent with SC crisis, and urticaria Will check labs including retics to work up crisis, IM toradol for pain control as pt states motrin helps the most Pt refusing IV at this time Will PO hydrate Given cold symptoms, will check CXR, pt has hx of acute chest For urticaria, will give benadryl 50mg and reassess 09/28/17 15:13 retic count mildly elevated, consistent with mild crisis Pt reports 0/10 pain at this time post toradol, ivf persistent urticaria, likely allergic - will refer to classified advertising supervisor No evidence of systemic sxs of respiratory, GI involvement CXR clear R Hip with avasc necrosis which pt has hx of requests dc home I discussed the physical exam findings, ancillary test results and final diagnoses with the patient. I answered all of the patient's questions. The patient was satisfied with the care received and felt comfortable with the discharge plan and treatment plan. The patient will call their primary care physician within 24 hours to arrange follow-up and will return to the Emergency Department with any new, persistent or worsening symptoms. <Ede Rob - Last Filed: 09/28/17 15:15>
[2017-09-28 13:38] LABS: ALBUMIN 3.9 g/dl (3.4-5.0); ANION GAP 6 (8-16); BLOOD UREA NITROGEN 13 mg/dL (7-18); CALCIUM 9.2 mg/dL (8.5-10.1); CHLORIDE 105 mmol/L (98-107); CO2 28 mmol/L (21-32); CREATININE 0.8 mg/dL (0.55-1.02); GLUCOSE,RANDOM 97 mg/dL (74-106); POTASSIUM 4.7 mmol/L (3.5-5.1); SGOT/AST 31 U/L (15-37); SGPT/ALT 44 U/L (12-78); SODIUM 139 mmol/L (136-145)
[2017-09-28 13:40] LABS: ALK PHOS 128 U/L (45-117); BILIRUBIN,TOTAL 1.4 mg/dL (0.2-1.0); TOT PROT 7.7 g/dl (6.4-8.2)
[2017-09-28] MEDS ORDERED: KETOROLAC TROMETHAMINE 30 MG/1 ML VIAL ONE (13:41)
[2017-09-28] MEDS ORDERED: KETOROLAC TROMETHAMINE 15 MG/ML VIAL IVPUSH ONE (13:47)
[2017-09-28] MEDS ORDERED: KETOROLAC TROMETHAMINE 30 MG/1 ML VIAL IVPUSH ONE (14:10)
[2017-09-28 16:15] VITALS: BP 130/76; PULSE 59; TEMP 97.9
== END 2017-09-28 15:53 | disposition home or self-care (01) ==
LOC: JER 11:33
PROC: 3E0337Z Introduction of Electrolytic and Water Balance Substance into Peripheral Vein, Percutaneous Approach (ICD-10-PCS; principal; 2017-09-28)
PROC: 3E0333Z Introduction of Anti-inflammatory into Peripheral Vein, Percutaneous Approach (ICD-10-PCS; 2017-09-28)
DX: D57.00 Hb-SS disease with crisis, unspecified (principal)
CPT/HCPCS: 36415; 71046-TC-FY; 73523-TC-FY; 73562-TC-RT-FY; 80053; 85027; 85044; 99284-25; J7030

== ENCOUNTER 2017-10-20 13:09 | Emergency (ER) | payer OTHER ==
[2017-10-20 13:26] VITALS: BP 124/67; PULSE 87; TEMP 98.6; BMI 31.6
--- NOTE | 2017-10-20 14:29 | PDOC ---
History of Present Illness - General Chief Complaint: Back Pain Stated Complaint: LT LEG/ HIP/ KNEE PAIN Time Seen by Provider: 10/20/17 13:51 History Source: Patient Exam Limitations: Clinical Condition - History of Present Illness Initial Comments: 10/20/17 14:24 Patient with history of sickle cell disease presenting with complain of left lower back pain and pain to posterior thigh area with numbness and tingling sensation in left groin area and posterior thigh which patient is concerning for possible blood clot given her medical history. Patient reported sensation of hardness and burning and left groin and upper thigh area since yesterday. Patient reported symptoms different from his sickle cell crisis pain area and denies any other symptoms Timing/Duration: 24 hours Severity: moderate Past History - Past Medical History Allergies/Adverse Reactions: Allergies Allergy/AdvReac Type Severity Reaction Status Date / Time No Known Drug Allergies Allergy Verified 10/20/17 13:20 Home Medications: Ambulatory Orders Methocarbamol [Robaxin -] 500 mg PO TID PRN #21 tablet 10/20/17 Naproxen 500 mg PO BID PRN #20 tablet. 10/20/17 Anemia: Yes (sickle cell anemia) COPD: No - Surgical History Cholecystectomy: Yes - Suicide/Smoking/Psychosocial Hx Smoking History: Never smoked Have you smoked in the past 12 months: No Hx Alcohol Use: No Drug/Substance Use Hx: No Substance Use Type: None Hx Substance Use Treatment: No Review of Systems - Review of Systems Able to Perform ROS?: Yes Is the patient limited Kinyarwanda proficient: No Constitutional: No: Chills, Diaphoresis, Fever, Loss of Appetite, Malaise, Night Sweats, Weakness, Weight Stable, Unintentional Wgt. Loss, Unexplained wgt Loss, Other HEENTM: No: Eye Pain, Blurred Vision, Tearing, Recent change in vision, Double Vision, Cataracts, Ear Pain, Ocular Prothesis, Ear Discharge, Nose Pain, Nose Congestion, Tinnitus, Nose Bleeding, Hearing Loss, Throat Pain, Throat Swelling , Mouth Pain, Dental Problems, Difficulty Swallowing, Mouth Swelling, Other Respiratory: No: Cough, Orthopnea, Shortness of Breath, SOB with Exertion, SOB at Rest, Stridor, Wheezing, Productive cough, Hemoptysis, Other Cardiac (ROS): No: Chest Pain, Edema, Irregular Heart Rate, Lightheadedness, Palpitations, Syncope, Chest Tightness, Other ABD/GI: No: Abdominal Distended, Abd. Pain w/ defecation, Blood Streaked Bowels , Constipated, Diarrhea, Difficulty Swallowing, Nausea, Poor Appetite, Poor Fluid Intake, Rectal Bleeding, Vomiting, Indigestion, Abdominal cramping, Tarry Stools, Other Musculoskeletal: Yes: Back Pain (left side), Muscle Pain (left lower back, thigh and groin areas). No: Joint Swelling, Joint Stiffness Integumentary: No: Bruising, Change in Color, Change in Hair/Nails, Dryness, Erythema, Flushing, Lesions, Lumps, Pallor, Pruritus, Rash, Sweating, Other Neurological: Yes: Numbness (left thigh and groin areas), Tingling (left groin and lateral thigh area). No: Paresthesia, Pre-Existing Deficit, Weakness All Other Systems: Reviewed and Negative *Physical Exam - Vital Signs Last Vital Signs Temp Pulse Resp BP Pulse Ox 98.6 F 87 19 124/67 97 10/20/17 13:20 10/20/17 13:20 10/20/17 13:20 10/20/17 13:20 10/20/17 13:20 - Physical Exam Comments: 10/20/17 14:28 GENERAL: Well developed, well nourished. Awake and alert. No acute distress. HEENT: Normocephalic, atraumatic. PERRLA, EOMI. No conjunctival pallor. Sclera are non- icteric. Moist mucous membranes. Oropharynx is clear. NECK: Supple. Full ROM. No JVD. Carotid pulses 2+ and symmetric, without bruits. No thyromegaly. No lymphadenopathy. CARDIOVASCULAR: Regular rate and rhythm. No murmurs, rubs, or gallops. Distal pulses are 2+ and symmetric. PULMONARY: No evidence of respiratory distress. Lungs clear to auscultation bilaterally. No wheezing, rales or rhonchi. ABDOMINAL: Soft. Non-tender. Non-distended. No rebound or guarding. No organomegaly. Normoactive bowel sounds. MUSCULOSKELETAL : moderate tenderness over left paracervical muscle of L5-S1 Normal range of motion at all joints. No bony deformities . No CVA tenderness. EXTREMITIES: No cyanosis. No clubbing. No edema. No calf tenderness. SKIN: Warm and dry. Normal capillary refill. No rashes. No jaundice. NEUROLOGICAL: Alert, awake, appropriate. Cranial nerves 2-12 intact. No deficits to light touch and temperature in face, upper extremities and lower extremities. No motor deficits in the in face, upper extremities and lower extremities. Normoreflexic in the upper and lower extremities. Normal speech. Toes are down- going bilaterally. Gait is normal without ataxia. PSYCHIATRIC: Cooperative. Good eye contact. Appropriate mood and affect. General Appearance: Yes: Nourished, Appropriately Dressed. No: Apparent Distress ED Treatment Course - RADIOLOGY Radiology Studies Ordered: Category Date Time Status DUPLEX VASCUL US-1 LEG [US] Stat Ultrasound 10/20/17 14:11 Ordered Medical Decision Making - Medical Decision Making 10/20/17 14:29 Patient with history of sickle cell crisis and chronic back pain present with complain of left-sided back pain with numbness and tingling sensation to left groin and upper thigh area since yesterday with patient consent for blood clot. Clinical exam shows normal sensory sensation to right thigh area with moderate tenderness to left lower back. No erythema or increased warmth to area of pain and no lower extremity swelling area Symptoms likely lumbago go with sciatica. Doppler of left extremity ordered to rule out thrombosis. Discharge home on NSAIDs if normal Dopplers 10/20/17 15:38 doppler of left LE negative for thrombosis. pt stable for home discharge on NSAIDS and muscle relaxer with orthopedics follow-up *DC/Admit/Observation/Transfer Diagnosis at time of Disposition: Lumbago Qualifiers: Chronicity: chronic Back pain laterality: left Sciatica presence: with sciatica Sciatica laterality: sciatica of left side Qualified Code(s): M54.42 - Lumbago with sciatica, left side; G89.29 - Other chronic pain - Discharge Dispostion Disposition: HOME Condition at time of disposition: Stable Decision to Admit order: No - Prescriptions Prescriptions: Methocarbamol [Robaxin -] 500 mg PO TID PRN #21 tablet PRN Reason: Back Pain Naproxen 500 mg PO BID PRN #[address] tablet.[address] MILIAN Reason: pain - Referrals Referrals: Shanti Johansen MD [Primary Care Provider] - Guy Tidwell MD [Staff Physician] - - Patient Instructions Printed Discharge Instructions: DI for Sciatica, DI for Back Pain With Sciatica Additional Instructions: take medication as prescribed for symptoms. follow-up with orthopedics for possible MRI if symptoms persists Print Language: KAZAKH - Post Discharge Activity
== END 2017-10-20 15:54 | disposition home or self-care (01) ==
LOC: JERFT 13:09
DX: M54.42 Lumbago with sciatica, left side (principal); G89.29 Other chronic pain
CPT/HCPCS: 93971-TC; 99281-25

== ENCOUNTER 2017-11-29 10:40 | Emergency (ER) | payer MEDICARE, OTHER ==
[2017-11-29 10:44] VITALS: BMI 31.6
--- NOTE | 2017-11-29 11:01 | PDOC ---
History of Present Illness - History of Present Illness Initial Comments: 11/29/17 12:24 The patient is a 52 year old female, with a significant past medical history of sickle cell anemia, who presents to the emergency department with pain to her right arm today . She states she developed right upper back pain on Monday which has now radiated to her entire right arm. She states she takes percocet 325/5 once every 4 hours for pain. She states she had pain medication left from her last sickle cell crisis which she has been using since Monday without relief. She reports her last dose was sometime late last night into early this morning. She denies numbness or tingling. Secondarily, she reports mild pain to her left upper quadrant, but denies tenderness. Patient reports her symptoms are similar to her previous sickle cell crisis. The patient denies chest pain, shortness of breath, headache and dizziness. The patient denies fever, chills, nausea, vomit, diarrhea and constipation. The patient denies dysuria, frequency, urgency and hematuria. Allergies: NKDA Past Surgical History: Cholecystectomy, Section Social History: Non smoker. No ETOH or recreational drug use. PCP: Dr. Escobar Syrian interpretation with [facility] #[id number] <Sara Youssef - Last Filed: 11/29/17 14:54> - General History Source: Patient Exam Limitations: Language Barrier <Jessica Yoon - Last Filed: 11/29/17 17:54> - General Chief Complaint: Sickle Cell Crisis Stated Complaint: SICKLE CELL CRISIS Time Seen by Provider: 11/29/17 11:01 Past History <Sara Youssef - Last Filed: 11/29/17 14:54> - Past Medical History Anemia: Yes (sickle cell anemia) COPD: No - Surgical History Cholecystectomy: Yes - Suicide/Smoking/Psychosocial Hx Smoking History: Never smoked Have you smoked in the past 12 months: No Hx Alcohol Use: No Drug/Substance Use Hx: No Substance Use Type: None Hx Substance Use Treatment: No <Jessica Yoon - Last Filed: 11/29/17 17:54> - Past Medical History Allergies/Adverse Reactions: Allergies Allergy/AdvReac Type Severity Reaction Status Date / Time morphine Allergy Verified 11/29/17 10:44 Home Medications: Ambulatory Orders Cyclobenzaprine HCl [Flexeril 10 mg] 10 mg PO BID PRN #15 tablet 11/29/17 Oxycodone HCl 10 mg PO QID PRN #12 tablet MDD 4 11/29/17 Oxycodone HCl/Acetaminophen [Percocet 5-325 mg Tablet] 1 - 2 tab PO Q4H Oxycodone HCl/Acetaminophen [Percocet 5-325 mg Tablet] 1 - 2 tab PO Q6H PRN 3 Days #12 tab MDD 8 11/29/17 Review of Systems - Review of Systems Able to Perform ROS?: Yes Comments:: 11/29/17 12:24 Constitutional: no fevers or chills. HEENT: +headache or dizziness. CVS: no syncope. +chest pain. Resp: no sob. Abdomen: no abdominal pain, nausea or vomiting. Genitourinary: +urinary frequency, no hematuria/dysuria/urgency. MUSCULOSKELETAL: (+) right upper back and right arm pain. No joint pain and swelling. No neck or back pain. SKIN: no redness or skin changes, no discharge, no rash. Hematologic: no easy bruising/bleeding. NEUROLOGIC: No headache, dizziness, LOC or altered mental status. No weakness, numbness or tingling. All other systems reviewed and negative, or as documented in HPI. <Sara Youssef - Last Filed: 11/29/17 14:54> *Physical Exam - Vital Signs Last Vital Signs Temp Pulse Resp BP Pulse Ox 98.2 F 68 18 141/66 100 11/29/17 10:41 11/29/17 10:41 11/29/17 10:41 11/29/17 10:41 11/29/17 10:41 - Physical Exam Comments: 11/29/17 12:25 General: Well appearing, awake and alert, mild distress 2/2 pain. HEENT: NCAT, PERRL, EOMI, clear conjunctiva, anicteric, moist mucus membranes, clear oropharynx, no oral lesions.. Neck: neck supple, FROM Resp: CTAB, normal and even respirations, no respiratory distress CVS: RRR, no murmurs, 2+ peripheral pulses throughout, no peripheral edema Abdomen: soft, NTND, no peritoneal signs. No CVAT. Back: nontender, normal inspection and ROM. no midline tenderness. MSK: (+) TTP to right upper extremity and lateral chest wall bilaterally. no objective swelling of her hands. 2+ radial pulses. No palpable back tenderness. no edema, BAEZ x4, ROM intact. No clubbing or cyanosis. normal bulk and tone. Neuro: alert, oriented appropriately; no focal neurologic deficits. SILT, 5/5 distal and prox strength in all extrem. speech clear. Skin: warm and well perfused, cap refill <2 sec, normal color <Sara Youssef - Last Filed: 11/29/17 14:54> - Vital Signs Last Vital Signs Temp Pulse Resp BP Pulse Ox 98.2 F 68 18 141/66 100 11/29/17 10:41 11/29/17 10:41 11/29/17 10:41 11/29/17 10:41 11/29/17 10:41 <Jessica Yoon - Last Filed: 11/29/17 17:54> Heart Score/ECG Review #1 11/29/17 14:55 EKG normal sinus rhythm, no interval abnormalities, narrow QRS, ST and T wave segments and morphology normal. Nonspecific T wave abnormalities in lead 3. Unchanged from prior <Sara Youssef - Last Filed: 11/29/17 14:54> ED Treatment Course - LABORATORY CBC & Chemistry Diagram: 11/29/17 12:45 11/29/17 12:45 <Sara Youssef - Last Filed: 11/29/17 14:54> - LABORATORY CBC & Chemistry Diagram: 11/29/17 12:45 11/29/17 12:45 <Jessica Yoon - Last Filed: 11/29/17 17:54> Medical Decision Making - Medical Decision Making 11/29/17 12:21 Reddy 52 YOF with Sickle cell disease presenting with sickle cell crisis. ? right arm pain and swelling in hands, +right upper back and lateral chest pain, left CP, worse with movement and rest. Back pain worse with deep inspiration. DDx. ACS, angina, pleurisy, Dissection, PE, costochondritis, acute chest syndrome, sickle cell crisis, UTI, pneumonia, electrolyte/metabolic derangements. Vitals wnl, reviewed. Plan: CXR to r/o acute chest, trop, EKG, CBC and CMP, analgesia and fluids. Retic count, D dimer to r/o PE/dissection with CP/back pain. UA and urine cx/r/ o UTI given urinary sx including frequency. Duplex RUE to r/o DVT. ED course: IVF, flexeril, PO oxycodone and toradol for sickle cell crisis UA neg for infection. Trop negative. EKG unchanged from prior, with nonspecific T wave abnormalities. CXR neg for acute chest. No fevers here. D dimer elevated, Duplex of arm and CT angio to r/o PE as etiology for pain Otherwise, CBC with wbc ct and H/H at baseline with anemia and leukocytosis. Retic count elevated c/w prior results ~4-6%- numbers at baseline. CT chest angio neg for PE or dissection. atelectasis/scarring present, but no pneumonia. Duplex RUE neg for DVT. Pain controlled here with oxycodone, flexeril, remains well appearing, no e/o ACS. Pt to be discharged in stable condition. Patient and family made aware of impression and plan, return precautions discussed (including but not limited to worsening pain or symptoms), fevers, or signs of infection, chest pain, respiratory distress, inability to tolerate oral intake, dehydration, syncope, or neurologic changes). Follow up with PMD and/or specialist as recommended, follow up information provided, take medications as instructed for duration of time. continue with supportive care, avoid triggers and precipitants. All questions answered to patient's satisfaction and expressed understanding and comfort with this. information provided in Syrian. RX oxycodone for severe pain , may taken NSAIDS/tylenol for mild-moderate, flexeril PRN muscle spasm. f/u tipple boss/sickle cell specialist at [facility] 11/29/17 17:52 <Jessica Yoon - Last Filed: 11/29/17 17:54> *DC/Admit/Observation/Transfer - Attestations Scribe Attestion: 11/29/17 12:25 Documentation prepared by MOY Smith, acting as director medical science for Jessica Yoon MD. <Sara Youssef - Last Filed: 11/29/17 14:54> - Discharge Dispostion Decision to Admit order: No <Yoon,Jessica Yugee - Last Filed: 11/29/17 17:54> Diagnosis at time of Disposition: Back pain, Sickle cell crisis - Discharge Dispostion Disposition: HOME Condition at time of disposition: Improved - Prescriptions Prescriptions: Cyclobenzaprine HCl [Flexeril 10 mg] 10 mg PO BID PRN #15 tablet PRN Reason: Muscle Spasms Oxycodone HCl 10 mg PO QID PRN #12 tablet MDD 4 PRN Reason: Pain Oxycodone HCl/Acetaminophen [Percocet 5-325 mg Tablet] 1 - 2 tab PO Q6H PRN 3 Days #12 tab MDD 8 PRN Reason: Pain Level 7 - 10 - Referrals Referrals: [facility] [place] [Provider Group] - Patient Instructions Printed Discharge Instructions: DI for Sickle Cell Anemia, Pain Crisis -- Adult , DI for Thoracic Back Pain Additional Instructions: Darling resultados de laboratorio / imgenes fueron normales, fitzgerald tomografa computarizada y ecografa fueron negativas para cogulo, el anlisis de jignesh y la prueba de orina son normales Elda un seguimiento con fitzgerald mdico y consultores segn las instrucciones, tome darling medicamentos segn las instrucciones, incluido percocet para el dolor pedro , flexeril para el espasmo muscular. Retorna si empeora sntomas mitzi fiebre, dolor de vonda, vmitos, alteraciones visuales o auditivas, dolor abdominal, dolor de pecho, dificultad para respirar , sncope, deshidratacin, incapacidad de sofia cosas por la boca / vmitos, alteracin del estado mental o empeoramiento de los sntomas. darling medicamentos al momento del eduardo incluyen analgsicos y relajantes musculares que pueden causar somnolencia y mareos; los efectos secundarios pueden incluir malestar estomacal, dolor abdominal, vmitos o diarrea. no bebas alcohol con tus medicamentos Print Language: KOSOVAN
[2017-11-29] MEDS ORDERED: oxyCODONE HCL 5 MG TABLET PO ONE (11:53)
[2017-11-29] MEDS ORDERED: CYCLOBENZAPRINE HCL 5 MG TABLET PO ONE (11:54)
[2017-11-29] MEDS ORDERED: SODIUM CHLORIDE 0.9% 500 ML INFUS.BAG IV ONE (11:54)
[2017-11-29] MEDS ORDERED: KETOROLAC TROMETHAMINE 15 MG/ML VIAL IVPUSH ONE (11:54)
[2017-11-29] MEDS ORDERED: CYCLOBENZAPRINE HCL 10 MG TABLET (FP) ONE (12:53)
[2017-11-29] MEDS ORDERED: oxyCODONE HCL 5 MG TABLET ONE (12:53)
[2017-11-29] MEDS ORDERED: KETOROLAC TROMETHAMINE 30 MG/1 ML VIAL ONE (12:53)
[2017-11-29 13:10] LABS: BASO % 0.5 % (0-2.0); EOS % 1.4 % (0-4.5); HEMATOCRIT 30.6 % (32.4-45.2); HEMOGLOBIN 10.4 GM/dL (10.7-15.3); LYMPH % 19.5 % (8-40); MCH 26.4 pg (25.7-33.7); MCHC 33.9 g/dl (32.0-36.0); MEAN CELL VOLUME 77.8 fl (80-96); MEAN PLT VOLUME 8.6 fl (7.5-11.1); MONO % 6.8 % (3.8-10.2); NEUT % 71.8 % (42.8-82.8); PLATELET COUNT 350 K/MM3 (134-434); RBC 3.94 M/mm3 (3.60-5.2); RDW 18.6 % (11.6-15.6); WHITE BLOOD COUNT 13.9 K/mm3 (4.0-10.0)
[2017-11-29 13:34] LABS: ALBUMIN 3.8 g/dl (3.4-5.0); ALK PHOS 135 U/L (45-117); ANION GAP 4 MMOL/L (8-16); BLOOD UREA NITROGEN 12 mg/dL (7-18); CALCIUM 9.2 mg/dL (8.5-10.1); CHLORIDE 101 mmol/L (98-107); CO2 31 mmol/L (21-32); CREATININE 0.7 mg/dL (0.55-1.3); GLUCOSE,RANDOM 91 mg/dL (74-106); POTASSIUM 4.6 mmol/L (3.5-5.1); SGOT/AST 39 U/L (15-37); SGPT/ALT 36 U/L (13-61); SODIUM 136 mmol/L (136-145); TOT PROT 7.9 g/dl (6.4-8.2)
[2017-11-29 13:36] LABS: BILIRUBIN,TOTAL 1.4 mg/dL (0.2-1)
[2017-11-29 14:32] LABS: URINE APPEARANCE CLEAR; URINE BILIRUBIN NEGATIVE (<2.0 mg/dL); URINE COLOR LTYELLOW; URINE GLUCOSE (UA) NEGATIVE (NEGATIVE); URINE KETONE NEGATIVE (NEGATIVE); URINE LEUK ESTERASE NEGATIVE (NEGATIVE); URINE NITRITE NEGATIVE (NEGATIVE); URINE PROTEIN NEGATIVE (NEGATIVE); URINE UROBILINOGEN NEGATIVE mg/dL (0.2-1.0)
--- NOTE | 2017-11-29 15:25 | EKG ---
Test Reason : Blood Pressure : / mmHG Vent. Rate : 058 BPM Atrial Rate : 058 BPM P-R Int : 144 ms QRS Dur : 082 ms QT Int : 422 ms P-R-T Axes : 015 007 026 degrees QTc Int : 414 ms SINUS BRADYCARDIA OTHERWISE NORMAL ECG WHEN COMPARED WITH ECG OF 09-OCT-2017 15:40, NO SIGNIFICANT CHANGE WAS FOUND Confirmed by JOHN DELVALLE MD ([id number]) on 11/29/2017 3:24:59 PM Referred By: Confirmed By:JOHN DELVALLE MD
[2017-11-29 16:28] VITALS: TEMP 98
[2017-11-29 17:16] VITALS: BP 137/100; PULSE 61
== END 2017-11-29 17:16 | disposition home or self-care (01) ==
LOC: JER 10:40
PROC: 3E0333Z Introduction of Anti-inflammatory into Peripheral Vein, Percutaneous Approach (ICD-10-PCS; principal; 2017-11-29)
PROC: 3E0337Z Introduction of Electrolytic and Water Balance Substance into Peripheral Vein, Percutaneous Approach (ICD-10-PCS; 2017-11-29)
DX: D57.819 Other sickle-cell disorders with crisis, unspecified (principal); M54.9 Dorsalgia, unspecified
CPT/HCPCS: 36415; 71046-TC-FY; 71275-TC; 80053; 81003; 84484; 85025; 85044; 85379; 87086; 93005; 93010; 93971; 96361; 96374; 99285-25

== ENCOUNTER 2018-01-05 14:50 | Inpatient (IN) | payer OTHER ==
[~2018-01-05 14:50] MED LIST: morphine SULFATE 4 MG/ML VIAL IVPUSH PRN
--- NOTE | 2018-01-05 14:59 | PDOC ---
Rapid Medical Evaluation Time Seen by Provider: 01/05/18 14:53 Medical Evaluation: Allergies Allergy/AdvReac Type Severity Reaction Status Date / Time morphine Allergy Verified 11/29/17 10:44 01/05/18 14:54 Pt presents for Pain down her L leg into her lower back. Pt has hx of sickle cell. Exam: Pt appears uncomfortable; walking with limp Orders: Labs, Urine, Iv Pt to proceed to ED for further evaluation Discharge Disposition - Diagnosis Left leg pain - Referrals - Patient Instructions - Post Discharge Activity
[2018-01-05] MEDS ORDERED: SODIUM CHLORIDE 1,000 ML IV STA (15:51)
--- NOTE | 2018-01-05 16:13 | PDOC ---
Attending Attestation - [facility] HPI: 01/05/18 16:29 The patient is a 52 year old female, with a significant past medical history of sickle cell anemia, who presents to the emergency department with, left lower back pain. Patient describes the pain as radiating to the left buttock and thigh. She took oxycodone this morning, with minimal relief. She endorses that this is similar to previous episodes, however, her pain resurrects in various locations. Her last episode was a month ago. She denies recent fevers, chills, headache or dizziness. She denies recent nausea, vomit, diarrhea or constipation. She denies recent dysuria, frequency, urgency or hematuria. She denies recent chest pain or shortness of breath. Allergies: Morphine. Past surgical history: Cholecystectomy, Section Social history: Nonsmoker. Denies EtOH use and recreational drug use. Primary Care Physician: Dr. Escobar - Physicial Exam PE: 01/05/18 17:18 Constitutional: Awake, alert, oriented. No acute distress. Head: Normocephalic. Atraumatic Eyes: PERRL. EOMI. Conjunctivae are not pale. ENT: Mucous membranes are moist and intact. Posterior pharynx without exudates or erythema. Uvula midline. Neck: Supple. Full ROM. No lymphadenopathy. Cardiovascular: Regular rate. Regular rhythm. S1, S2 regular. Distal pulses are 2+ and symmetric. Pulmonary/Chest: No evidence of respiratory distress. Clear to auscultation bilaterally No wheezing, rales or rhonchi. Abdominal: Soft and non-distended. There is no tenderness. No rebound, guarding or rigidity. No organomegaly. No palpable masses. Good bowel sounds. Back: Mild left lower back tenderness. No CVA tenderness. +Musculoskeletal: Mild left lower extremity without pitting edema. No cyanosis. No clubbing. Full range of motion in all extremities. No calf tenderness. Radial/pedal pulses are intact and 2+ bilaterally Skin: Skin is warm and dry. No petechiae. No purpura. Neurological: Alert and oriented to person, place, and time. Cranial nerves II -XII are grossly intact. Normal speech. Strength is grossly symmetric. No sensory deficits. Psychiatric: Good eye contact. Normal interaction, affect and behavior. <Jessica Washington - Last Filed: 01/05/18 17:18> - Resident Resident Name: Margarette Freeman - ED Attending Attestation I have performed the following: I have examined & evaluated the patient, The case was reviewed & discussed with the resident, I agree w/resident's findings & plan, Exceptions are as noted - Medical Decision Making 01/05/18 16:13 I, Dr. Imani Mcdaniel, DO, attest that this document has been prepared under my direction and personally reviewed by me in its entirety. I further attest, that it accurately reflects all work, treatment, procedures and medical decision -making performed by me. 01/05/18 17:13 a/p: 52yo with hx of SCD presents with a pain crisis to the L low back and L hip -last blood transfusion was when she was 10 -hx of AVN of the hips and shoulder -pt states pain x 3 days - no f/c. no cp/sob/cough -states she took ibuprofen at home for the pain and then an oxycodone on monday without relief -pt is on folate and follows with the [facility] -pt states she is not hydroxyurea because it made her feel weird and didn't like the side effects -states the oxycodone made her sleepy, but didn't help her pain -will send labs, retic count -will give ivf hydration, will give pain control -will monitor and reassess 01/05/18 22:43 pt with intractable pain despite multiple rounds of pain medication will admit for sc pain crisis resident discussed the case with VANNESSA who accepts pt to service <Imani Mcdaniel - Last Filed: 01/05/18 22:44> Heart Score/ECG Review - ECG Intrepretation Comment:: 01/05/18 18:04 sinus at 74, nl axis, nl interval, no acute st/t wave findings <Imani Mcdaniel - Last Filed: 01/05/18 22:44> Attestations - Attestations 01/05/18 16:30 Documentation prepared by Jessica Washington, acting as vp medical for Imani Mcdaniel DO. <Jessica Washington - Last Filed: 01/05/18 17:18>
[2018-01-05] MEDS ORDERED: HYDROmorphone HCL CARPU-JECT 2 MG/1 ML DISP.SYRIN IVPB ONE ×2 (16:20→18:24)
[2018-01-05] MEDS ORDERED: ONDANSETRON 4 MG/2 ML VIAL IVPUSH ONE (16:22)
[2018-01-05 16:27] LABS: BASO % 0.6 % (0-2.0); HEMOGLOBIN 10.7 GM/dL (10.7-15.3); LYMPH % 24.6 % (8-40); MCH 26.7 pg (25.7-33.7); MCHC 33.5 g/dl (32.0-36.0); MEAN CELL VOLUME 79.5 fl (80-96); MEAN PLT VOLUME 8.7 fl (7.5-11.1); MONO % 5.8 % (3.8-10.2); PLATELET COUNT 329 K/MM3 (134-434); RBC 4.03 M/mm3 (3.60-5.2); RDW 18.4 % (11.6-15.6); WHITE BLOOD COUNT 14.5 K/mm3 (4.0-10.0)
--- NOTE | 2018-01-05 16:27 | PDOC ---
History of Present Illness - General Chief Complaint: Pain Stated Complaint: SICKLE CELL CRISIS Time Seen by Provider: 01/05/18 14:53 - History of Present Illness Initial Comments: 52yo F with PMH of sickle cell anemia, enlarged spleen, cholecystectomy presented to the ED with left lower back pain. The pain is rated 1000/10 and started on Monday as an ache that got progressively worse. Patient has taken oxycodone at home for pain which she had leftover from a previous crisis. She last took pain medicine early this morning, but not recently as the medicine makes her dizzy and she wanted to get to the ED. Patient reports that she has had blood transfusions as a child, but none as an adult. 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 She has never heard of acute chest syndrome. Patient's quality control associate is located at [facility]. No fevers, chills, chest pain, shortness of breath, or abdominal pain. Past History - Past Medical History Allergies/Adverse Reactions: Allergies Allergy/AdvReac Type Severity Reaction Status Date / Time morphine AdvReac Verified 01/05/18 14:54 Home Medications: Ambulatory Orders Ibuprofen [Motrin -] 600 mg PO TID 01/05/18 Oxycodone HCl/Acetaminophen [Percocet 5-325 mg Tablet] 1 - 2 tab PO Q4H RX: Folic Acid 1 mg PO DAILY 01/05/18 Anemia: Yes (sickle cell anemia) COPD: No - Surgical History Cholecystectomy: Yes - Suicide/Smoking/Psychosocial Hx Smoking History: Never smoked Have you smoked in the past 12 months: No Hx Alcohol Use: No Drug/Substance Use Hx: No Substance Use Type: None Hx Substance Use Treatment: No Review of Systems - Review of Systems Comments:: Constitutional: no fever, no chills HEENT: no throat pain, no dysphagia Cardiovascular: no chest pain, no palpitations Respiratory: no cough, no shortness of breath Gastrointestinal: no abdominal pain, no nausea, no vomiting Genitourinary: no dysuria, no frequency Musculoskeletal: +leg pain, +back pain Skin: no rash, no itching Neurologic: +headache, no dizziness *Physical Exam - Vital Signs Last Vital Signs Temp Pulse Resp BP Pulse Ox 100 H 26 H 130/67 98 01/05/18 14:56 01/05/18 14:56 01/05/18 14:56 01/05/18 14:56 - Physical Exam Comments: General: Awake, alert, and fully oriented, writhing in bed Head: no signs of trauma Eyes: EOMI, sclera anicteric ENT: Moist mucus membranes Neck: Normal ROM, supple Lungs: Lungs clear, Normal breath sounds Cardio: Regular rhythm, S1 and S2 present Abdomen: Soft, nontender. No guarding, no rebound, no masses Extremities: Normal range of motion, Distal pulses present SKIN: Warm, Dry, normal turgor Back: Tender to palpation in lower lumbar area to the left, radiating down the buttock to the thigh; no midline tenderness, no stepoffs, no deformities Neurologic: Cranial nerves II through XII grossly intact. Normal speech ED Treatment Course - LABORATORY CBC & Chemistry Diagram: 01/05/18 16:15 01/05/18 16:15 - RADIOLOGY Radiology Studies Ordered: Category Date Time Status CHEST X-RAY PORTABLE* [RAD] Stat Radiology 01/05/18 15:47 Taken Medical Decision Making - Medical Decision Making 52yo F with PMH of sickle cell anemia, enlarged spleen, cholecystectomy presented to the ED with left lower back pain. -Labs: WBC= 14.5, Hgb 10.7, Retic=5.78, IHL=734, UA negative -EKG: rate 74, Qc 450, NSR -CXR: no acute pathology (my impression) -zofran for patients history of nausea/vomiting with opioids -0.5 dilaudid x 2, patient reports pain diminished, now 5/10 Patient reports diminished pain that is still exacerbated by movement. 01/05/18 17:40 Patient observed walking to the bathroom without difficulty. 01/05/18 19:43 Patient now endorsing exacerbation of her pain, as high as 10/10. She states that po medicine will not suffice at home and that she believes she would return to the ED again shortly after were she to be discharged. Plan to admit for intractable pain. 4mg morphine ordered Discussed case with inpatient team who accepted patient for admission under attending, Dr. Scott 01/05/18 22:35 *DC/Admit/Observation/Transfer Diagnosis at time of Disposition: Left leg pain, Back pain - Discharge Dispostion Condition at time of disposition: Stable Decision to Admit order: Yes - Referrals - Patient Instructions - Post Discharge Activity
[2018-01-05 16:39] LABS: INR 0.99 (0.83-1.09); PROTHROMBIN TIME (PATIENT) 11.7 SEC (9.7-13.0)
[2018-01-05] MEDS ORDERED: HYDROmorphone HCl 2 MG/ML VIAL ONE ×2 (16:43→18:34)
[2018-01-05] MEDS ORDERED: ONDANSETRON 4 MG/2 ML VIAL ONE (16:49)
[2018-01-05 16:53] LABS: ALBUMIN 3.9 g/dl (3.4-5.0); ALK PHOS 126 U/L (45-117); BILIRUBIN,TOTAL 1.2 mg/dL (0.2-1); BLOOD UREA NITROGEN 12 mg/dL (7-18); CALCIUM 8.8 mg/dL (8.5-10.1); CHLORIDE 105 mmol/L (98-107); CO2 26 mmol/L (21-32); CREATININE 0.6 mg/dL (0.55-1.3); GLUCOSE,RANDOM 85 mg/dL (74-106); SGPT/ALT 27 U/L (13-61); SODIUM 141 mmol/L (136-145); TOT PROT 7.9 g/dl (6.4-8.2)
[2018-01-05 16:54] LABS: ANION GAP 9 MMOL/L (8-16); POTASSIUM 4.6 mmol/L (3.5-5.1); SGOT/AST 31 U/L (15-37)
[2018-01-05 17:12] LABS: URINE APPEARANCE CLEAR; URINE BILIRUBIN NEGATIVE (<2.0 mg/dL); URINE COLOR STRAW; URINE GLUCOSE (UA) NEGATIVE (NEGATIVE); URINE KETONE NEGATIVE (NEGATIVE); URINE LEUK ESTERASE NEGATIVE (NEGATIVE); URINE NITRITE NEGATIVE (NEGATIVE); URINE PROTEIN NEGATIVE (NEGATIVE); URINE UROBILINOGEN NEGATIVE mg/dL (0.2-1.0)
[2018-01-05] MEDS ORDERED: morphine CARPU-JECT 4 MG/1 ML DISP.SYRIN IVPUSH ONE (21:24)
[2018-01-05] MEDS ORDERED: morphine SULFATE 4 MG/ML VIAL ONE (22:28)
--- NOTE | 2018-01-05 23:01 | HP ---
CHIEF COMPLAINT: Back and Leg Pain PCP: Lucy Escboar NP Supervisor Clam Bed: [facility]: [facility] HISTORY OF PRESENT ILLNESS: This is a 52 y/o woman with a past medical history of Sickle Cell Disease. Who presents to the ED with Back and Leg pain unrelieved with po Oxycodone. Patient is Malay speaking [employer] line used #[id number]. 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 She describes the pain as sharp and pulsating. Patient denies fever, cough, SOB, CP , palpitations, N/V/D, constipation, dysuria. ER course was notable for: (1) Retic Count 5.78 (2) WBC 14.5 (3) Recent Travel: None PAST MEDICAL HISTORY: Sickle Cell Disease PAST SURGICAL HISTORY: Cholecystectomy C- Section Laser on eyes Social History: Smoking: Never Alcohol: Denies Drugs: Denies Lives alone, not employed on disability Family History: Mother: HTN, DM Father: Cardiac, of [place] Brother: Sickle Cell Disease Niece: Sickle Cell Disease Allergies morphine Adverse Reaction (Verified 01/05/18 14:54) vomiting and itching HOME MEDICATIONS: Home Medications Medication Instructions Recorded Folic Acid 1 mg PO DAILY 01/05/18 Ibuprofen [Motrin -] 600 mg PO TID 01/05/18 Oxycodone HCl/Acetaminophen 1 - 2 tab PO Q4H 01/05/18 [Percocet 5-325 mg Tablet] REVIEW OF SYSTEMS CONSTITUTIONAL: Absent: fever, chills, diaphoresis, generalized weakness, malaise, loss of appetite, weight change HEENT: Absent: rhinorrhea, nasal congestion, throat pain, throat swelling, difficulty swallowing, mouth swelling, ear pain, eye pain, visual changes CARDIOVASCULAR: Absent: chest pain, syncope, palpitations, irregular heart rate, lightheadedness , peripheral edema RESPIRATORY: Absent: cough, shortness of breath, dyspnea with exertion, orthopnea, wheezing, stridor, hemoptysis GASTROINTESTINAL: abdominal pain Absent: abdominal distension, nausea, vomiting, diarrhea, constipation, melena, hematochezia GENITOURINARY: Absent: dysuria, frequency, urgency, hesitancy, hematuria, flank pain, genital pain MUSCULOSKELETAL: myalgia, arthralgia, back pain, leg pain Absent: joint swelling, neck pain SKIN: Absent: rash, itching, pallor HEMATOLOGIC/IMMUNOLOGIC: Absent: easy bleeding, easy bruising, lymphadenopathy, frequent infections ENDOCRINE: Absent: unexplained weight gain, unexplained weight loss, heat intolerance, cold intolerance NEUROLOGIC: Absent: headache, focal weakness or paresthesias, dizziness, unsteady gait, seizure, mental status changes, bladder or bowel incontinence PSYCHIATRIC: Absent: anxiety, depression, suicidal or homicidal ideation, hallucinations. PHYSICAL EXAMINATION Vital Signs - 24 hr 01/05/18 01/05/18 01/05/18 14:56 18:50 20:45 Pulse Rate 100 H Pulse Rate [ 72 71 Radial] Respiratory 26 H 18 18 Rate Blood Pressure 130/67 Blood Pressure 133/67 146/68 [Left Arm] O2 Sat by Pulse 98 98 97 Oximetry (%) GENERAL: Awake, alert, and fully oriented, in no acute distress. HEAD: Normal with no signs of trauma. EYES: Pupils equal, round and reactive to light, extraocular movements intact, sclera anicteric, conjunctiva clear. No lid lag. EARS, NOSE, THROAT: Dry mucous membranes. Ears normal, nares patent, oropharynx clear without exudates. NECK: Normal range of motion, supple without lymphadenopathy, JVD, or masses. LUNGS: Breath sounds equal, clear to auscultation bilaterally. No wheezes, and no crackles. No accessory muscle use. HEART: Regular rate and rhythm, normal S1 and S2 without murmur, rub or gallop. ABDOMEN: LUQ tenderness. soft,not distended, normoactive bowel sounds, no guarding, no rebound, no masses. No hepatomegaly or splenomegaly. MUSCULOSKELETAL: Lower lumbar tenderness to palpation. Normal range of motion at all joints. No bony deformities. No CVA tenderness. UPPER EXTREMITIES: 2+ pulses, warm, well-perfused. No cyanosis. No clubbing. No peripheral edema. LOWER EXTREMITIES: 2+ pulses, warm, well-perfused. No calf tenderness. No peripheral edema. NEUROLOGICAL: Cranial nerves II-XII intact. Normal speech. Gait not observed. PSYCHIATRIC: Cooperative. Good eye contact. Appropriate mood and affect. SKIN: Warm, dry, normal turgor, no rashes or lesions noted, normal capillary refill. Laboratory Results - last 24 hr 01/05/18 01/05/18 01/05/18 16:15 16:15 16:15 WBC 14.5 H RBC 4.03 Hgb 10.7 Hct 32.0 L MCV 79.5 L MCH 26.7 MCHC 33.5 RDW 18.4 H Plt Count 329 MPV 8.7 Absolute Neuts (auto) 9.7 H Neutrophils % 67.0 Lymphocytes % 24.6 D Monocytes % 5.8 Eosinophils % 2.0 Basophils % 0.6 Nucleated RBC % 1 H Retic Count PT with INR INR Sodium 141 Potassium 4.6 Chloride 105 Carbon Dioxide 26 Anion Gap 9 BUN 12 Creatinine 0.6 Creat Clearance w eGFR > 60 Random Glucose 85 Calcium 8.8 Total Bilirubin 1.2 H AST 31 ALT 27 Alkaline Phosphatase 126 H LD Total Total Protein 7.9 Albumin 3.9 Urine Color Urine Appearance Urine pH Ur Specific [place] Urine Protein Urine Glucose (UA) Urine Ketones Urine Blood Urine Nitrite Urine Bilirubin Urine Urobilinogen Ur Leukocyte Esterase Urine HCG, Qual Negative 01/05/18 01/05/18 01/05/18 16:15 16:15 16:15 WBC RBC Hgb Hct MCV MCH MCHC RDW Plt Count MPV Absolute Neuts (auto) Neutrophils % Lymphocytes % Monocytes % Eosinophils % Basophils % Nucleated RBC % Retic Count 5.78 H D PT with INR 11.70 INR 0.99 Sodium Potassium Chloride Carbon Dioxide Anion Gap BUN Creatinine Creat Clearance w eGFR Random Glucose Calcium Total Bilirubin AST ALT Alkaline Phosphatase LD Total Total Protein Albumin Urine Color Straw Urine Appearance Clear Urine pH 5.0 D Ur Specific [place] 1.009 L Urine Protein Negative Urine Glucose (UA) Negative Urine Ketones Negative Urine Blood Negative Urine Nitrite Negative Urine Bilirubin Negative Urine Urobilinogen Negative Ur Leukocyte Esterase Negative Urine HCG, Qual 01/05/18 16:15 WBC RBC Hgb Hct MCV MCH MCHC RDW Plt Count MPV Absolute Neuts (auto) Neutrophils % Lymphocytes % Monocytes % Eosinophils % Basophils % Nucleated RBC % Retic Count PT with INR INR Sodium Potassium Chloride Carbon Dioxide Anion Gap BUN Creatinine Creat Clearance w eGFR Random Glucose Calcium Total Bilirubin AST ALT Alkaline Phosphatase LD Total 309 H Total Protein Albumin Urine Color Urine Appearance Urine pH Ur Specific [place] Urine Protein Urine Glucose (UA) Urine Ketones Urine Blood Urine Nitrite Urine Bilirubin Urine Urobilinogen Ur Leukocyte Esterase Urine HCG, Qual ASSESSMENT/PLAN: This is a 52 y/o woman with a PMHx of Sickle Cell Disease. Placed in Observation for Intractable Lumbar Pain secondary to Acute Sickle Cell Crisis for further evaluation of their emergent condition. Plan: 1. Ortho: Intractable Lumbar Pain Likely secondary to Acute Sickle Cell Crisis Pain Management, Morphine prn judiciously, listed as allergy however per pt adverse reaction nausea, itching, dose given in ED without reaction, will continue to monitor closely. Consider PT 2. Hematology: Acute Sickle Cell Crisis Retic Count 5.78 WBC 14.5 LDH-pending IV fluids given in ED will continue O2 Monitor CBC, Retic Count, LDH Leukocytosis likely secondary to inflammatory response vs infectious Continue Folic Acid Consider Hematology Consult if no improvement Consider Pain Mgmt Monitor vitals FEN NS@75ml/hr Replete lytes prn Regular Diet ad song DVT ppx OOB SCDs Consider AC if LOS > 48hrs Code Status: Full Code Dispo: Observation Problem List - Problem (1) Back pain Code(s): M54.9 - DORSALGIA, UNSPECIFIED (2) Left leg pain Code(s): M79.605 - PAIN IN LEFT LEG (3) Sickle cell crisis Code(s): D57.00 - HB-SS DISEASE WITH CRISIS, UNSPECIFIED (4) Leukocytosis Code(s): D72.829 - ELEVATED WHITE BLOOD CELL COUNT, UNSPECIFIED Visit type - Emergency Visit Emergency Visit: Yes ED Registration Date: 01/05/18 Care time: The patient presented to the Emergency Department on the above date and was hospitalized for further evaluation of their emergent condition. - New Patient This patient is new to me today: Yes Date on this admission: 01/05/18 - Critical Care Critical Care patient: No
[2018-01-05] MEDS ORDERED: SODIUM CHLORIDE 1,000 ML IV SCH (23:15)
[2018-01-06] MEDS ORDERED: ONDANSETRON 4 MG/2 ML VIAL ONE (00:39)
[2018-01-06] MEDS ORDERED: ONDANSETRON 4 MG/2 ML VIAL IVPUSH PRN (03:00)
[2018-01-06 03:07] VITALS: BMI 32.5
[2018-01-06 07:22] LABS: BASO % 0.7 % (0-2.0); EOS % 1.1 % (0-4.5); HEMATOCRIT 29.9 % (32.4-45.2); HEMOGLOBIN 9.9 GM/dL (10.7-15.3); LYMPH % 29.2 % (8-40); MCH 26.2 pg (25.7-33.7); MCHC 33.2 g/dl (32.0-36.0); MEAN CELL VOLUME 79.1 fl (80-96); MEAN PLT VOLUME 8.6 fl (7.5-11.1); MONO % 4.4 % (3.8-10.2); NEUT % 64.6 % (42.8-82.8); PLATELET COUNT 285 K/MM3 (134-434); RBC 3.78 M/mm3 (3.60-5.2); RDW 18.9 % (11.6-15.6); WHITE BLOOD COUNT 12.6 K/mm3 (4.0-10.0)
[2018-01-06 08:04] LABS: ANION GAP 6 MMOL/L (8-16); BLOOD UREA NITROGEN 11 mg/dL (7-18); CALCIUM 8.5 mg/dL (8.5-10.1); CHLORIDE 105 mmol/L (98-107); CO2 27 mmol/L (21-32); CREATININE 0.7 mg/dL (0.55-1.3); GLUCOSE,RANDOM 105 mg/dL (74-106); LDH 235 U/L (84-246); POTASSIUM 4.6 mmol/L (3.5-5.1); SODIUM 138 mmol/L (136-145)
--- NOTE | 2018-01-06 08:26 | PN ---
Progress Note (short form) - Note Progress Note: Vital Signs Temperature 98.0 F 01/06/18 06:13 Pulse Rate 65 01/06/18 06:13 Respiratory Rate 18 01/06/18 06:13 Blood Pressure 138/79 01/06/18 06:13 O2 Sat by Pulse Oximetry (%) 97 01/06/18 02:33 GENERAL: Awake, alert, and fully oriented, in no acute distress. HEAD: Normal with no signs of trauma. EYES: Pupils equal, round and reactive to light, extraocular movements intact, sclera anicteric, conjunctiva clear. EARS, NOSE, THROAT: Dry mucous membranes. Ears normal, oropharynx clear without exudates. NECK: Normal range of motion, supple without lymphadenopathy, JVD, or masses. LUNGS: Breath sounds equal, clear to auscultation bilaterally. No wheezes, and no crackles. No accessory muscle use. HEART: Regular rate and rhythm, normal S1 and S2 without murmur, rub or gallop. ABDOMEN: LUQ tenderness. soft,not distended, normoactive bowel sounds, no guarding, no rebound, no masses. EXTREMITIES: 2+ pulses, warm, well-perfused. No cyanosis. No clubbing. No peripheral edema. NEUROLOGICAL: Cranial nerves II-XII intact. Normal speech. Gait not observed. PSYCHIATRIC: Cooperative. Good eye contact. Appropriate mood and affect. SKIN: Warm, dry, normal turgor, no rashes or lesions noted, normal capillary refill. CBCD WBC 12.6 K/mm3 (4.0-10.0) H 01/06/18 06:45 RBC 3.78 M/mm3 (3.60-5.2) 01/06/18 06:45 Hgb 9.9 GM/dL (10.7-15.3) L 01/06/18 06:45 Hct 29.9 % (32.4-45.2) L 01/06/18 06:45 MCV 79.1 fl (80-96) L 01/06/18 06:45 MCHC 33.2 g/dl (32.0-36.0) 01/06/18 06:45 RDW 18.9 % (11.6-15.6) H 01/06/18 06:45 Plt Count 285 K/MM3 (134-434) 01/06/18 06:45 MPV 8.6 fl (7.5-11.1) 01/06/18 06:45 CMP Sodium 138 mmol/L (136-145) 01/06/18 06:45 Potassium 4.6 mmol/L (3.5-5.1) 01/06/18 06:45 Chloride 105 mmol/L (98-107) 01/06/18 06:45 Carbon Dioxide 27 mmol/L (21-32) 01/06/18 06:45 Anion Gap 6 MMOL/L (8-16) L 01/06/18 06:45 BUN 11 mg/dL (7-18) 01/06/18 06:45 Creatinine 0.7 mg/dL (0.55-1.3) 01/06/18 06:45 Creat Clearance w eGFR > 60 (>60) 01/06/18 06:45 Random Glucose 105 mg/dL (74-106) 01/06/18 06:45 Calcium 8.5 mg/dL (8.5-10.1) 01/06/18 06:45 Total Bilirubin 1.2 mg/dL (0.2-1) H 01/05/18 16:15 AST 31 U/L (15-37) 01/05/18 16:15 ALT 27 U/L (13-61) 01/05/18 16:15 Alkaline Phosphatase 126 U/L (45-117) H 01/05/18 16:15 Total Protein 7.9 g/dl (6.4-8.2) 01/05/18 16:15 Albumin 3.9 g/dl (3.4-5.0) 01/05/18 16:15 Current Medications Generic Name Dose Route Start Last Admin Trade Name Freq PRN Reason Stop Dose Admin Folic Acid 1 mg 01/06/18 10:00 Folic Acid - PO DAILY RAUL Sodium Chloride 1,000 mls @ 75 mls/hr 01/05/18 23:15 01/05/18 23:37 Normal Saline - IV 75 mls/hr ASDIR RAUL Administration Morphine Sulfate 3 mg 01/05/18 03:00 Morphine Sulfate IVPUSH Q4H PRN PAIN LEVEL 7 - 10 Ondansetron HCl 4 mg 01/06/18 03:00 01/06/18 00:37 Zofran Injection IVPUSH 4 mg Q6H PRN Administration NAUSEA Assessment/Plan: This is a 52 y/o woman with a PMHx of Sickle Cell Disease. Placed in Observation for Intractable Lumbar Pain secondary to Acute Sickle Cell Crisis for further evaluation of their emergent condition. #Intractable Lumbar Pain: secondary to Acute Sickle Cell Crisis Pain Management, Morphine prn judiciously #Acute Sickle Cell Crisis : Retic Count 5.78 WBC 14.5 LDH-pending IV fluids given in ED will continue O2 Monitor CBC, Retic Count, LDH Leukocytosis likely secondary to inflammatory response vs infectious Continue Folic Acid Consider Hematology Consult if no improvement Consider Pain Mgmt Monitor vitals DVT ppx: OOB, SCDs Code Status: Full Code Dispo: Observation
[2018-01-06] MEDS ORDERED: FOLIC ACID 1 MG TABLET (FP) PO SCH (10:00)
--- NOTE | 2018-01-06 14:59 | EKG ---
Test Reason : Blood Pressure : / mmHG Vent. Rate : 074 BPM Atrial Rate : 074 BPM P-R Int : 138 ms QRS Dur : 078 ms QT Int : 406 ms P-R-T Axes : 045 020 039 degrees QTc Int : 450 ms NORMAL SINUS RHYTHM NORMAL ECG WHEN COMPARED WITH ECG OF 29-NOV-2017 13:02, NO SIGNIFICANT CHANGE WAS FOUND Confirmed by MD Fink Edward ([id number]) on 01/06/2018 2:59:35 PM Referred By: Confirmed By:Lane Fink MD
--- NOTE | 2018-01-06 16:50 | DS ---
Physical Exam: SUBJECTIVE: Patient seen and examined Patient denies having anymore pain, would like to go home. only pain she has the bottom of her heel left one. No fever or chills, no shortness of breath. No headache, no palpitations. OBJECTIVE: Vital Signs Temperature 98.1 F 01/06/18 14:02 Pulse Rate 67 01/06/18 14:02 Respiratory Rate 18 01/06/18 14:02 Blood Pressure 139/73 01/06/18 14:02 O2 Sat by Pulse Oximetry (%) 98 01/06/18 09:00 GENERAL: The patient is awake, alert, and fully oriented, in no acute distress. HEAD: Normal with no signs of trauma. EYES: PERRL, extraocular movements intact, sclera anicteric, conjunctiva clear. ENT: Ears normal, oropharynx clear without exudates, moist mucous membranes. NECK: Trachea midline, full range of motion, supple. LUNGS: Breath sounds equal, clear to auscultation bilaterally, no wheezes, no crackles, no accessory muscle use. HEART: Regular rate and rhythm, S1, S2 without murmur, rub or gallop. ABDOMEN: Soft, nontender, nondistended, normoactive bowel sounds, no guarding, no rebound, no hepatosplenomegaly, no masses. EXTREMITIES: 2+ pulses, warm, well-perfused, no edema. NEUROLOGICAL: Cranial nerves II through XII grossly intact. Normal speech. PSYCH: Normal mood, normal affect. SKIN: Warm, dry, normal turgor, no rashes or lesions noted. LABS CBCD WBC 12.6 K/mm3 (4.0-10.0) H 01/06/18 06:45 RBC 3.78 M/mm3 (3.60-5.2) 01/06/18 06:45 Hgb 9.9 GM/dL (10.7-15.3) L 01/06/18 06:45 Hct 29.9 % (32.4-45.2) L 01/06/18 06:45 MCV 79.1 fl (80-96) L 01/06/18 06:45 MCHC 33.2 g/dl (32.0-36.0) 01/06/18 06:45 RDW 18.9 % (11.6-15.6) H 01/06/18 06:45 Plt Count 285 K/MM3 (134-434) 01/06/18 06:45 MPV 8.6 fl (7.5-11.1) 01/06/18 06:45 CMP Sodium 138 mmol/L (136-145) 01/06/18 06:45 Potassium 4.6 mmol/L (3.5-5.1) 01/06/18 06:45 Chloride 105 mmol/L (98-107) 01/06/18 06:45 Carbon Dioxide 27 mmol/L (21-32) 01/06/18 06:45 Anion Gap 6 MMOL/L (8-16) L 01/06/18 06:45 BUN 11 mg/dL (7-18) 01/06/18 06:45 Creatinine 0.7 mg/dL (0.55-1.3) 01/06/18 06:45 Creat Clearance w eGFR > 60 (>60) 01/06/18 06:45 Random Glucose 105 mg/dL (74-106) 01/06/18 06:45 Calcium 8.5 mg/dL (8.5-10.1) 01/06/18 06:45 Total Bilirubin 1.2 mg/dL (0.2-1) H 01/05/18 16:15 AST 31 U/L (15-37) 01/05/18 16:15 ALT 27 U/L (13-61) 01/05/18 16:15 Alkaline Phosphatase 126 U/L (45-117) H 01/05/18 16:15 Total Protein 7.9 g/dl (6.4-8.2) 01/05/18 16:15 Albumin 3.9 g/dl (3.4-5.0) 01/05/18 16:15 Current Medications Generic Name Dose Route Start Last Admin Trade Name Freq PRN Reason Stop Dose Admin Folic Acid 1 mg 01/06/18 10:00 01/06/18 10:01 Folic Acid - PO 1 mg DAILY RAUL Administration Sodium Chloride 1,000 mls @ 75 mls/hr 01/05/18 23:15 01/05/18 23:37 Normal Saline - IV 75 mls/hr ASDIR RAUL Administration Morphine Sulfate 3 mg 01/05/18 03:00 Morphine Sulfate IVPUSH Q4H PRN PAIN LEVEL 7 - 10 Ondansetron HCl 4 mg 01/06/18 03:00 01/06/18 00:37 Zofran Injection IVPUSH 4 mg Q6H PRN Administration NAUSEA Home Medications Medication Instructions Recorded Folic Acid 1 mg PO DAILY 01/05/18 Ibuprofen [Motrin -] 600 mg PO TID 01/05/18 Oxycodone HCl/Acetaminophen 1 - 2 tab PO Q4H 01/05/18 [Percocet 5-325 mg Tablet] HOSPITAL COURSE: Date of Admission:01/06/18 Date of Discharge: 01/06/18 This is a 52 y/o woman with a PMHx of Sickle Cell Disease. Placed in Observation for Intractable Hip pain with Lumbar Pain secondary to Acute Sickle Cell Crisis for further evaluation of their emergent condition. #Intractable Lumbar/ hip Pain: secondary to Acute Sickle Cell Crisis, patient's pain was relieved by Morphine. # Avascular necrosis was diagnosed earlier of this year, sees an orthopedic from [facility]. Name Zahida Higgins , patient will follow with him, as per notes , patient is managed conservately for now, the long plan is Hip replacement surgery. Patient will continue her pain meds at home that is given from [facility]. #Acute Sickle Cell Crisis : improved post IV morphine. IVF DVT ppx: OOB, SCDs Code Status: Full Code Dispo: Observation Follow with primary within a week period. 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 Minutes to complete discharge: 35 Discharge Summary Reason For Visit: INTRACTABLE PAIN/HB SS DISEASE W/CRISIS Current Active Problems Back pain (Acute) Left leg pain (Acute) Leukocytosis (Acute) Condition: Stable - Instructions Diet, Activity, Other Instructions: You came to the ED for back pain and leg pain. You can take the oxycodone you already have at home for your pain. Take up to two tablets every 6 hours as needed. You can also use [id number] motrin and tylenol for pain control. Follow the instructions on the medication bottle. Follow up with your physical plant manager in the next two to three days. Call and make an appointment. Your care is not complete until you do so. RETURN if: you experience high fevers, chest pain, shortness of breath, pain not controlled by home medications, or any other new or concerning symptoms Referrals: john Crockett [Other] - 1 Week Samantha Escobar NP [Primary Care Provider] - 1 Week Disposition: HOME - Home Medications Comprehensive Discharge Medication List: Ambulatory Orders Folic Acid 1 mg PO DAILY 01/05/18 Ibuprofen [Motrin -] 600 mg PO TID 01/05/18 Oxycodone HCl/Acetaminophen [Percocet 5-325 mg Tablet] 1 - 2 tab PO Q4H This patient is new to me today: Yes Date on this admission: 01/06/18 Emergency Visit: Yes ED Registration Date: 01/06/18 Care time: The patient presented to the Emergency Department on the above date and was hospitalized for further evaluation of their emergent condition. Critical Care patient: No - Discharge Referral [facility] No
[2018-01-06 17:55] VITALS: BP 133/84; PULSE 68; TEMP 98.5
== END 2018-01-06 18:00 | disposition home or self-care (01) | DRG 812 ==
LOC: JER 14:50 → JERBED 22:16 → UNDOADMOB 23:44 → JERBED 23:44 → J7W 01-06 01:56 → OBSVTOIN 01-06 09:04
PROVIDERS: ADMIT Internal Medicine; ATTEND Internal Medicine
DX: D57.00 Hb-SS disease with crisis, unspecified (principal); M87.059 Idiopathic aseptic necrosis of unspecified femur; M54.5 Low back pain; D72.829 Elevated white blood cell count, unspecified
CPT/HCPCS: 36415; 71045-TC-FY; 80048; 80053; 81003; 83615; 84703; 85025; 85044; 85610; 93005; 93010; 99283-25; G0378; J7030

== ENCOUNTER 2019-03-06 11:42 | Inpatient (IN) | payer OTHER ==
--- NOTE | 2019-03-06 12:06 | PDOC ---
History of Present Illness - General Chief Complaint: Sickle Cell Crisis Stated Complaint: PAIN - History of Present Illness Initial Comments: The pt is a 53F w/ a history of SS disease who presents for evaluation of 1 day of symptoms that are typical of her sickle crisis symptoms. She describes aching pain in her 4 extremities. Additionally, she describes epigastric pinching pain that radiates to her back. The symptoms have been worsening since onset. She has tried taking Percocet 5/325 for pain with minimal relief (last 0). She endorses sore throat 3 days ago that has since resolved. She denies fevers/chills, trouble breathing, V/D, dysuria, hematuria Per previous visit note: Patient reports that she has had blood transfusions as a child, but none as an adult. 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 She has never heard of acute chest syndrome. 03/06/19 12:46 Past History - Past Medical History Allergies/Adverse Reactions: Allergies Allergy/AdvReac Type Severity Reaction Status Date / Time morphine AdvReac Verified 03/06/19 11:51 Home Medications: Ambulatory Orders Folic Acid 1 mg PO DAILY 01/05/18 Gabapentin 100 mg PO DAILY 03/06/19 Anemia: Yes (sickle cell anemia) Asthma: No Cancer: No Cardiac Disorders: No CVA: No COPD: No CHF: No Dementia: No Diabetes: No GI Disorders: No Disorders: No HTN: No Hypercholesterolemia: No Liver Disease: No Seizures: No Thyroid Disease: No - Surgical History Abdominal Surgery: No Appendectomy: No Cardiac Surgery: No Cholecystectomy: Yes Lung Surgery: No Neurologic Surgery: No Orthopedic Surgery: No - Psycho Social/Smoking Cessation Hx Smoking History: Never smoked Have you smoked in the past 12 months: No Information on smoking cessation initiated: No Hx Alcohol Use: No Drug/Substance Use Hx: No Substance Use Type: None Hx Substance Use Treatment: No Review of Systems - Review of Systems Able to Perform ROS?: Yes Comments:: GENERAL/CONSTITUTIONAL: No fever or chills. No weakness HEAD, EYES, EARS, NOSE AND THROAT: No change in vision. No change in hearing. No sore throat CARDIOVASCULAR: No chest pain or shortness of breath RESPIRATORY: Denies cough, hemoptysis GASTROINTESTINAL: No nausea, vomiting, diarrhea or constipation GENITOURINARY: No dysuria, frequency, or change in urination MUSCULOSKELETAL: +4 extremity and back pain SKIN: No rash NEUROLOGIC: No vertigo, loss of consciousness, or change in strength/sensation ENDOCRINE: No increased thirst. No abnormal weight change HEMATOLOGIC/LYMPHATIC: +SS disease ALLERGIC/IMMUNOLOGIC: No hives or skin allergy 03/06/19 12:06 Is the patient limited [place]an proficient: No *Physical Exam - Vital Signs Last Vital Signs Temp Pulse Resp BP Pulse Ox 97.9 F 78 19 141/80 97 03/06/19 11:49 03/06/19 11:49 03/06/19 11:49 03/06/19 11:49 03/06/19 11:49 - Physical Exam GENERAL: Awake, alert, and oriented to person/place/time HEAD: No signs of trauma, normocephalic, atraumatic EYES: PERRLA, EOMI, sclera anicteric, conjunctiva clear ENT: Hearing grossly normal, nares patent, oropharynx clear without exudates. No uvular deviation. Moist mucosa LUNGS: No distress, speaks in full sentences, clear to auscultation bilaterally HEART: Regular rate and rhythm, normal S1 and S2, no murmurs appreciated, peripheral pulses normal and equal bilaterally ABDOMEN: Soft, nontender, normoactive bowel sounds. No guarding, no rebound EXTREMITIES: Moves all extremities independently NEUROLOGICAL: Cranial nerves II through XII grossly intact. Normal speech; Generalized allodynia SKIN: Warm, Dry 03/06/19 12:06 ED Treatment Course - LABORATORY CBC & Chemistry Diagram: 03/06/19 12:45 03/06/19 12:45 - RADIOLOGY Radiograph Interpretation: RAD/CHEST X-RAY PORTABLE Single AP view of the chest has been submitted. Since 01/05/2018 patient has undergone a right shoulder replacement. The lungs are clear. There is no sign of mediastinal widening. The soft tissues are intact. The other bones are intact. Impression: Status post right shoulder replacement. No acute chest pathology. 03/06/19 13:09 Medical Decision Making - Medical Decision Making The pt is a 53F w/ a history of SS disease who presents for evaluation of 1 day of symptoms that are typical of her sickle crisis symptoms. She describes aching pain in her 4 extremities. ED Course CMP, CBC, LDH, Retic count CXR IVF, 2L NC, Ofirmev, Morphine 6mg IV once, Zofran 4mg IV once for symptomatic relief Pt states that she has had morphine before w/ her only symptom being nausea/ vomiting 03/06/19 12:51 CXR w/o evidence of acute chest 03/06/19 13:10 Pt labs with evidence of SS crsis, Retic, WBC, and LDH elevated Anemia noted, at baseline, no indication to transfuse at this time Pt feels moderately improved at this time -Will give Morphine 4mg IV once and additional 1L NS and reassess Lytes uremarkable No JUNE LFTs unremarkable -s/p ten 03/06/19 13:45 Will redose Morphine 4mg IV once Reglan for dizziness and nausea Pepcid for symptomatic relief 03/06/19 16:28 ECG w/ NSR; HR 63; QTc 435; no axis deviation; no DENISE Pt admitted for SS crisis and intractable pain 03/06/19 18:16 Discharge - Discharge Information Problems reviewed: Yes Clinical Impression/Diagnosis: Sickle cell crisis Condition: Good - Admission No - Follow up/Referral Referrals: Samantha Escobar NP [Primary Care Provider] - - Patient Discharge Instructions Patient Printed Discharge Instructions: DI for Sickle Cell Anemia, Pain Crisis -- Adult Additional Instructions: You were seen in the Emergency Department for evaluation of a sickle cell crisis. You were treated with fluids, morphine, Tylenol, and oxygen. You did not require a transfusion today. Review the handout provided at discharge. Follow up with your primary care provider within a week. Return to the Emergency Department if you develop fevers, chest pain, trouble breathing, worsening pain, change in sensation, worsening symptoms, or any new/ concerning symptoms. Usted fue visto en el Departamento de Emergencia para la evaluacin de pillo crisis drepanoctica. Usted fue tratado con fluidos, morfina, Tylenol y oxgeno. No requiri pillo transfusin hoy. Revise el folleto proporcionado al eduardo. Elda un seguimiento con fitzgerald proveedor de atencin primaria dentro de pillo semana. Regrese al Departamento de Emergencias si presenta fiebre, dolor en el pecho, dificultad para respirar, empeoramiento del dolor, cambios en la sensacin, empeoramiento de los sntomas o cualquier sntoma nuevo o preocupante. Print Language: GAMBIAN - Post Discharge Activity Work/Back to School Note: Back to Work
[2019-03-06] MEDS ORDERED: ACETAMINOPHEN 1000 MG/100 ML VIAL (NON FORMULARY) IVPB ONE (12:26)
[2019-03-06] MEDS ORDERED: ONDANSETRON 4 MG/2 ML VIAL IVPUSH ONE (12:26)
[2019-03-06] MEDS ORDERED: SODIUM CHLORIDE 0.9% 500 ML INFUS.BAG IV ONE ×2 (12:26→13:43)
[2019-03-06] MEDS ORDERED: morphine CARPU-JECT 4 MG/1 ML DISP.SYRIN IVPUSH ONE ×3 (12:26→16:25)
[2019-03-06] MEDS ORDERED: morphine SULFATE 4 MG/ML VIAL ONE ×3 (12:31→16:30)
[2019-03-06] MEDS ORDERED: MORPHINE SULFATE 2 MG/ML VIAL ONE (12:32)
[2019-03-06] MEDS ORDERED: ONDANSETRON 4 MG/2 ML VIAL ONE (12:33)
[2019-03-06] MEDS ORDERED: ACETAMINOPHEN INJECTION 100 ML IVPB ONE (12:33)
[2019-03-06 13:10] LABS: BASO % 0.9 % (0-2.0); HEMATOCRIT 29.7 % (32.4-45.2); HEMOGLOBIN 9.8 GM/dL (10.7-15.3); LYMPH % 33.8 % (8-40); MCH 25.2 pg (25.7-33.7); MCHC 33.1 g/dl (32.0-36.0); MEAN CELL VOLUME 76.1 fl (80-96); MEAN PLT VOLUME 8.2 fl (7.5-11.1); MONO % 5.8 % (3.8-10.2); NEUT % 57.5 % (42.8-82.8); PLATELET COUNT 324 K/MM3 (134-434); RDW 20.6 % (11.6-15.6)
[2019-03-06 13:29] LABS: ALBUMIN 3.6 g/dl (3.4-5.0); ALK PHOS 149 U/L (45-117); ANION GAP 6 MMOL/L (8-16); BILIRUBIN,TOTAL 1.2 mg/dL (0.2-1); BLOOD UREA NITROGEN 19.5 mg/dL (7-18); CALCIUM 8.9 mg/dL (8.5-10.1); CHLORIDE 106 mmol/L (98-107); CO2 25 mmol/L (21-32); CREATININE 0.7 mg/dL (0.55-1.3); GLUCOSE,RANDOM 120 mg/dL (74-106); POTASSIUM 4.4 mmol/L (3.5-5.1); SGOT/AST 26 U/L (15-37); SGPT/ALT 28 U/L (13-61); SODIUM 138 mmol/L (136-145); TOT PROT 7.8 g/dl (6.4-8.2)
--- NOTE | 2019-03-06 14:35 | PDOC ---
Documentation entered by Minnie Moscoso SCRIBE, acting as scribe for David De La O MD. David De La O MD: This documentation has been prepared by the priyaibeDanis Maria, SCRIBE, under my direction and personally reviewed by me in its entirety. I confirm that the documentation accurately reflects all work, treatment, procedures, and medical decision making performed by me. Attending Attestation - Resident Resident Name: Handy Rivera - ED Attending Attestation I have performed the following: I have examined & evaluated the patient, The case was reviewed & discussed with the resident, I agree w/resident's findings & plan, Exceptions are as noted - HPI HPI: 03/06/19 12:56 Patient is a 53 year old female with a significant PMH of sickle cell anemia who presents to the ED with 1 day of body aches. Pt c/o of aching pain in her 4 extremities as well as back. She states that this pain is the same as her usual sickle cell crises. Pt states taking Percocet for her symptoms with no significant relief, prompting her to the ER. She denies recent fevers, chills, headache or dizziness. She denies recent nausea, vomit, diarrhea or constipation. She denies recent dysuria, frequency, urgency or hematuria. She denies recent chest pain or shortness of breath. - Physicial Exam PE: 03/06/19 12:13 "GENERAL: Awake, alert, and fully oriented, in no acute distress. HEAD: No signs of trauma EYES: PERRLA, EOMI, sclera anicteric, conjunctiva clear ENT: Auricles normal inspection, hearing grossly normal, nares patent, oropharynx clear without exudates. Moist mucosa NECK: Nontender, no stepoffs, Normal ROM, supple, no lymphadenopathy, JVD, or masses LUNGS: Breath sounds equal, clear to auscultation bilaterally. No wheezes, and no crackles HEART: Regular rate and rhythm, normal S1 and S2, no murmurs, rubs or gallops ABDOMEN: Soft, nontender, normoactive bowel sounds. No guarding, no rebound. No masses EXTREMITIES: Normal range of motion, no edema. No clubbing or cyanosis. No cords, erythema, or tenderness NEUROLOGICAL: Cranial nerves II through XII intact. 5/5 strength and sensation in all extremities, Normal speech, normal gait, normal cerebellar function SKIN: Warm, Dry, normal turgor, no rashes or lesions noted. - Medical Decision Making 03/06/19 14:36 53 F with body pain and back pain. Likely sickle cell crisis. Pt without CP/SOB , no h/o acute chest. - Labs, LDH, retics - CXR - IVF, pain control
[2019-03-06] MEDS ORDERED: FAMOTIDINE 20 MG/50 ML IVPB 20 MG/50 ML MG IVPB ONE ×2 (16:25→16:30)
[2019-03-06] MEDS ORDERED: METOCLOPRAMIDE HCL INJECTION 10 MG/2 ML VIAL IVPB ONE (16:25)
[2019-03-06] MEDS ORDERED: METOCLOPRAMIDE HCL INJECTION 10 MG/2 ML VIAL ONE (16:30)
[2019-03-06] MEDS ORDERED: FOLIC ACID 1 MG TABLET (FP) PO ONE (17:50)
[2019-03-06] MEDS ORDERED: morphine CARPU-JECT 4 MG/1 ML DISP.SYRIN IVPUSH PRN (18:00)
[2019-03-06] MEDS ORDERED: morphine CARPU-JECT 4 MG/1 ML DISP.SYRIN IVPUSH SCH (18:00)
[2019-03-06] MEDS ORDERED: FOLIC ACID 1 MG TABLET (FP) ONE (18:02)
[2019-03-06] MEDS ORDERED: MORPHINE SULFATE 2 MG/ML VIAL IVPUSH PRN (18:02)
--- NOTE | 2019-03-06 18:03 | PN ---
Teaching Attending Note Name of Resident: Mike Purdy ATTENDING PHYSICIAN STATEMENT I saw and evaluated the patient. I reviewed the resident's note and discussed the case with the resident. I agree with the resident's findings and plan as documented with exceptions below. SUBJECTIVE: 53 yof with PMHx of Sickle Cell disease, right shoulder replacement from crisis years ago, Comes with sudden onset of left upper abdominal pain and generalized aches and pain, more in left leg, typical for her sickle crisis. Sore throat 2- 3 days ago, resolved. No fevers, chills, decreased po intake, nausea, vomiting, diarrhea, ETOH or concerns. takes percocet prn during her crisis, last crisis requiring hospitalization was reportedly in 2018. Reports seeing a self storage manager in [facility], last seen reportedly 2 weeks ago, but not on hydroxyurea for unclear reasons. Currently sleepy from morphine, asking for food, reports improvement in her pain. OBJECTIVE: Vital Signs Period Temp Pulse Resp BP Sys/Hutson Pulse Ox Last 24 Hr 97.9 F-98.1 F 70-78 18-19 138-141/73-80 97-100 Intake & Output 03/03/19 03/04/19 03/05/19 03/06/19 23:59 23:59 23:59 23:59 Intake Total 2150 Balance 2150 Weight 185 lb GENERAL:Sleepy but arousable, no acute distress HEAD: Normal with no signs of trauma. EYES: Pupils equal, round and reactive to light, extraocular movements intact, sclera anicteric, conjunctiva clear. No lid lag. EARS, NOSE, THROAT: Ears normal, nares patent, oropharynx clear without exudates. Dry mucous membranes. NECK: soft,supple, No JVD LUNGS: Breath sounds equal, clear to auscultation bilaterally. No wheezes, and no crackles. No accessory muscle use. HEART: S1S2 regular, ABDOMEN: soft, obese, LUQ/LMP tenderness, no splenomegaly appreciated, no voluntary or involuntary guarding or rigidity noted, pos bowel sounds MUSCULOSKELETAL: Right hip ROM with some limitation from pain, no swelling or erythema noted UPPER EXTREMITIES: 2+ pulses, warm, well-perfused. No cyanosis. No clubbing. No peripheral edema. LOWER EXTREMITIES: 2+ pulses, warm, well-perfused. No calf tenderness. No peripheral edema. Right hip movements as above NEUROLOGICAL: AAOx3, facial symmetry, tongue midline, EOMI, PERRL, power 5/5 sensation intact symmetric, no gross focal deficit noted PSYCHIATRIC: sleepy but arousable and co-operative. SKIN: Warm, dry, normal turgor, no rashes or lesions noted, normal capillary refill. Home Medications Medication Instructions Recorded Folic Acid 1 mg PO DAILY 01/05/18 Gabapentin 100 mg PO DAILY 03/06/19 Active Medications Heparin Sodium (Porcine) (Heparin -) 5,000 unit SQ TID RAUL Sodium Chloride (Normal Saline -) 1,000 mls @ 125 mls/hr IV ASDIR RAUL Morphine Sulfate (Morphine Sulfate) 2 mg IVPUSH Q3H PRN PRN Reason: PAIN LEVEL 1-5 Laboratory Results - last 24 hr 03/06/19 03/06/19 03/06/19 12:45 12:45 12:45 WBC 15.0 H RBC 3.90 Hgb 9.8 L Hct 29.7 L MCV 76.1 L MCH 25.2 L MCHC 33.1 RDW 20.6 H Plt Count 324 MPV 8.2 Absolute Neuts (auto) 8.6 H Neutrophils % 57.5 Lymphocytes % 33.8 Monocytes % 5.8 Eosinophils % 2.0 D Basophils % 0.9 Nucleated RBC % 1 H Retic Count Sodium 138 Potassium 4.4 Chloride 106 Carbon Dioxide 25 Anion Gap 6 L BUN 19.5 H Creatinine 0.7 Est GFR (CKD-EPI)AfAm 113.05 Est GFR (CKD-EPI)NonAf 97.54 Random Glucose 120 H Calcium 8.9 Total Bilirubin 1.2 H AST 26 ALT 28 Alkaline Phosphatase 149 H LD Total 266 H Troponin I < 0.02 Total Protein 7.8 Albumin 3.6 03/06/19 12:45 WBC RBC Hgb Hct MCV MCH MCHC RDW Plt Count MPV Absolute Neuts (auto) Neutrophils % Lymphocytes % Monocytes % Eosinophils % Basophils % Nucleated RBC % Retic Count 5.83 H Sodium Potassium Chloride Carbon Dioxide Anion Gap BUN Creatinine Est GFR (CKD-EPI)AfAm Est GFR (CKD-EPI)NonAf Random Glucose Calcium Total Bilirubin AST ALT Alkaline Phosphatase LD Total Troponin I Total Protein Albumin CXR: no acute process, right shoulder replacement EKG pending ASSESSMENT AND PLAN: 53 yof with PMHx of Sickle Cell disease, right shoulder replacement from crisis years ago, admitted with sickle cell crisis -Sickle cell crisis -Hemolytic anemia -Dehydration -s/p right shoulder replacement -Right hip avascular necrosis Plan: Aggressive hydration, Pain control with morphine 2 mg IV q3h prn (reports nausea, dizziness with morphine, not a true allergy and tolerated in ED) Tylenol prn Monitor hemolysis labs Continue folic acid Unclear why patient not on hydroxyurea, recommended to follow up and discuss with her self storage manager once symptoms resolve Hematology input if fails to improve or new concerns. [facility] to improve Plan discussed with patient, total admit time 65 min.
[2019-03-06] MEDS: SODIUM CHLORIDE 1,000 ML IV SCH ×2 (18:05→23:12)
--- NOTE | 2019-03-06 18:34 | HP ---
CHIEF COMPLAINT: Sickle Cell Crisis PCP: Dr. Escobar HISTORY OF PRESENT ILLNESS: 53 y/o/f with PMHx of sickle cell presenting to the ED for pain in her extremities and abdomen. Patient has had multiple episodes of sickle cell crisis in the past and states this feels like a crisis to her. The pain started last night. She takes Percocet as needed when she has a crisis for pain control , reports some pain relief with Percocet. Her pain has improved since she arrived to the ED after receiving medication. Patient was started on Hydroxyurea a long time ago but states she stopped taking it shortly after because she did not want to take it. She takes folic acid supplements at home. She follows with a sales floor manager for sickle cell disease who she last saw 2 weeks ago at [facility] and a she is seeing a specialist for avascular necrosis of her right hip, states there is no planned surgery currently. She had surgery to replace her right shoulder 20 years ago. She denies chest pain, SOB, dysuria, headache, N/V/D, fevers, chills. Her last crisis was in 2018. Patient sleepy on interview and repeatedly requesting food. [employer] interpretor#: [id number] ER course was notable for: (1) Ofirmev 1000mg x1, Morphine 14mg total, 2L NS (2) CXR without acute pathology PAST MEDICAL HISTORY: Sickle Cell PAST SURGICAL HISTORY: Right shoulder replacement Social History: Smoking: denies Alcohol: occasional alcohol use Drugs: denies FamHx: Mother with diabetes, Father passed from [place], Brother with Sickle cell Allergies morphine Adverse Reaction (Verified 03/06/19 11:51) vomiting and itching HOME MEDICATIONS: Home Medications Medication Instructions Recorded Folic Acid 1 mg PO DAILY 01/05/18 Gabapentin 100 mg PO DAILY 03/06/19 REVIEW OF SYSTEMS As per HPI PHYSICAL EXAMINATION Vital Signs - 24 hr 03/06/19 03/06/19 03/06/19 11:49 12:05 15:51 Temperature 97.9 F 98.1 F Pulse Rate 78 Pulse Rate [ 70 Apical] Respiratory 19 18 Rate Blood Pressure 141/80 Blood Pressure 138/73 [Right Arm] O2 Sat by Pulse 97 100 100 Oximetry (%) GENERAL: Sleepy, and fully oriented. Moderate distress due to pain HEAD: Normal with no signs of trauma. EYES: PERRL, EOMI, no scleral icterus EARS, NOSE, THROAT: Dry mucous membranes NECK: Normal range of motion, supple without lymphadenopathy, JVD, or masses. LUNGS: Breath sounds equal, clear to auscultation bilaterally. No wheezes, and no crackles. No accessory muscle use. HEART: Regular rate and rhythm, normal S1 and S2 without murmur, rub or gallop. ABDOMEN: Soft, not distended, normoactive bowel sounds, no guarding, no rebound , no masses. No splenomegaly palpated. Mild diffuse tenderness to palpation. MUSCULOSKELETAL: Normal range of motion at all joints. No bony deformities or tenderness. EXTREMITIES: 2+ radial and pedal pulses, warm, well-perfused. No calf tenderness. No peripheral edema. NEUROLOGICAL: Normal speech. gait not observed. Sensation intact throughout PSYCHIATRIC: Cooperative. Good eye contact. Appropriate mood and affect. SKIN: Warm, dry, normal turgor, no rashes or lesions noted, normal capillary refill. Laboratory Results - last 24 hr 03/06/19 03/06/19 03/06/19 12:45 12:45 12:45 WBC 15.0 H RBC 3.90 Hgb 9.8 L Hct 29.7 L MCV 76.1 L MCH 25.2 L MCHC 33.1 RDW 20.6 H Plt Count 324 MPV 8.2 Absolute Neuts (auto) 8.6 H Neutrophils % 57.5 Lymphocytes % 33.8 Monocytes % 5.8 Eosinophils % 2.0 D Basophils % 0.9 Nucleated RBC % 1 H Retic Count Sodium 138 Potassium 4.4 Chloride 106 Carbon Dioxide 25 Anion Gap 6 L BUN 19.5 H Creatinine 0.7 Est GFR (CKD-EPI)AfAm 113.05 Est GFR (CKD-EPI)NonAf 97.54 Random Glucose 120 H Calcium 8.9 Total Bilirubin 1.2 H AST 26 ALT 28 Alkaline Phosphatase 149 H LD Total 266 H Troponin I < 0.02 Total Protein 7.8 Albumin 3.6 03/06/19 12:45 WBC RBC Hgb Hct MCV MCH MCHC RDW Plt Count MPV Absolute Neuts (auto) Neutrophils % Lymphocytes % Monocytes % Eosinophils % Basophils % Nucleated RBC % Retic Count 5.83 H Sodium Potassium Chloride Carbon Dioxide Anion Gap BUN Creatinine Est GFR (CKD-EPI)AfAm Est GFR (CKD-EPI)NonAf Random Glucose Calcium Total Bilirubin AST ALT Alkaline Phosphatase LD Total Troponin I Total Protein Albumin ASSESSMENT/PLAN: 53 y/o/f with PMHx of sickle cell presenting to the ED for pain in her extremities and abdomen similar to her previous episodes of sickle cell crisis. #Sickle Cell Crisis - Morphine 2mg Q3hr for pain control - Ofirmev Q6hr PRN for pain - agressive IVF - Start folic acid - Haptoglobin test ordered - Zofran PRN for nausea #Prophylaxis - Lovenox #FEN - monitor and replete lytes as need - NS @125mls/hr - Regular diet #Disposition - admit to med surg - expect D/C in 1-2 days pending improvement in pain Visit type - Emergency Visit Emergency Visit: Yes Care time: The patient presented to the Emergency Department on the above date and was hospitalized for further evaluation of their emergent condition. - New Patient This patient is new to me today: Yes Date on this admission: 03/06/19 - Critical Care Critical Care patient: No ATTENDING PHYSICIAN STATEMENT I saw and evaluated the patient. I reviewed the resident's note and discussed the case with the resident. I agree with the resident's findings and plan as documented. SUBJECTIVE: OBJECTIVE: ASSESSMENT AND PLAN:
[2019-03-06] MEDS ORDERED: HEPARIN NA (PORCINE) 5,000 UNITS/ML 1ML VIAL SQ SCH (22:00)
[2019-03-06] MEDS: ACETAMINOPHEN 1000 MG/100 ML VIAL (NON FORMULARY) IVPB PRN (22:34)
[2019-03-06] MEDS ORDERED: MECLIZINE HCL 12.5 MG TABLET PO ONE (22:50)
[2019-03-06 23:27] VITALS: BMI 34.8
[2019-03-07] MEDS: ACETAMINOPHEN 1000 MG/100 ML VIAL (NON FORMULARY) IVPB PRN ×2 (05:08→16:13)
[2019-03-07 08:39] LABS: HEMATOCRIT 27.6 % (32.4-45.2); HEMOGLOBIN 9.5 GM/dL (10.7-15.3); MCH 25.7 pg (25.7-33.7); MCHC 34.5 g/dl (32.0-36.0); MEAN CELL VOLUME 74.5 fl (80-96); MEAN PLT VOLUME 8.4 fl (7.5-11.1); PLATELET COUNT 307 K/MM3 (134-434); RBC 3.71 M/mm3 (3.60-5.2); WHITE BLOOD COUNT 12.7 K/mm3 (4.0-10.0)
[2019-03-07] MEDS ORDERED: ONDANSETRON 4 MG/2 ML VIAL IVPUSH PRN (08:55)
[2019-03-07 09:01] LABS: ALBUMIN 3.4 g/dl (3.4-5.0); BILIRUBIN,TOTAL 1.5 mg/dL (0.2-1); BLOOD UREA NITROGEN 9.6 mg/dL (7-18); CALCIUM 8.7 mg/dL (8.5-10.1); CREATININE 0.5 mg/dL (0.55-1.3); MAGNESIUM 2.2 mg/dL (1.8-2.4); PHOSPHOROUS 3.9 mg/dL (2.5-4.9); POTASSIUM 4.4 mmol/L (3.5-5.1)
[2019-03-07 09:57] LABS: ANISOCYTOSIS 2+; MACROCYTOSIS 0; PLATELET ESTIMATE NORMAL; TARGET CELLS 3+
[2019-03-07] MEDS ORDERED: POLYETHYLENE GLYCOL 3350 119 GM BTL PO PRN (10:25)
[2019-03-07] MEDS ORDERED: diphenhydrAMINE HCL 25 MG CAPSULE (FP) PO PRN (10:27)
--- NOTE | 2019-03-07 10:29 | EKG ---
Test Reason : Blood Pressure : / mmHG Vent. Rate : 063 BPM Atrial Rate : 063 BPM P-R Int : 160 ms QRS Dur : 084 ms QT Int : 426 ms P-R-T Axes : 026 030 049 degrees QTc Int : 435 ms NORMAL SINUS RHYTHM NORMAL ECG WHEN COMPARED WITH ECG OF 05-JAN-2018 17:42, NO SIGNIFICANT CHANGE WAS FOUND Confirmed by DONTE RENTERIA MD ([id number]) on 03/07/2019 10:29:00 AM Referred By: Confirmed By:DONTE RENTERIA MD
[2019-03-07] MEDS: FOLIC ACID 1 MG TABLET (FP) PO SCH (10:31)
[2019-03-07] MEDS: SENNOSIDES 8.6MG TABLET (FP) PO SCH ×2 (10:31→21:28)
[2019-03-07] MEDS: ENOXAPARIN NA (PORCINE) 40 MG/0.4 ML DISP.SYRIN SQ SCH (10:31)
[2019-03-07 10:47] LABS: BILIRUBIN,DIRECT 0.4 mg/dL (0.0-0.2)
[2019-03-07] MEDS: MORPHINE SULFATE 2 MG/ML VIAL IVPUSH PRN ×4 (11:13→21:28)
--- NOTE | 2019-03-07 13:36 | PN ---
Teaching Attending Note Name of Resident: Mike Purdy ATTENDING PHYSICIAN STATEMENT I saw and evaluated the patient. I reviewed the resident's note and discussed the case with the resident. I agree with the resident's findings and plan as documented with exceptions below. SUBJECTIVE: Patient seen and examined, reports worsening pain in left upper abdomen, also generalized aches. Asking for dramamine. OBJECTIVE: Vital Signs Period Temp Pulse Resp BP Sys/Hutson Pulse Ox Last 24 Hr 97.6 F-98.1 F 68-84 16-20 127-159/71-84 98-100 Intake & Output 03/04/19 03/05/19 03/06/19 03/07/19 23:59 23:59 23:59 23:59 Intake Total 2150 1620 Balance 2150 1620 Weight 190 lb 4.8 oz general: lying in bed, tearful, distress but later smiling, when distracted and started on conversation Abdomen:Soft, obese, LUQ tenderness, no voluntary or involuntary guarding or rigidity Chest: CTAB, no rales or wheezing Extremities: no edema Home Medications Medication Instructions Recorded Folic Acid 1 mg PO DAILY 01/05/18 Gabapentin 100 mg PO DAILY 03/06/19 Active Medications Acetaminophen (Ofirmev Injection -) 1,000 mg IVPB Q6H PRN PRN Reason: PAIN LEVEL 1 - 3 Last Admin: 03/07/19 05:08 Dose: 1,000 mg Diphenhydramine HCl (Benadryl Injection -) 12.5 mg IVPUSH Q6H PRN PRN Reason: FOR ITCHING Last Admin: 03/07/19 10:58 Dose: 12.5 mg Docusate Sodium (Colace -) 100 mg PO TID [facility] Enoxaparin Sodium (Lovenox -) 40 mg SQ DAILY [facility] Last Admin: 03/07/19 10:31 Dose: 40 mg Folic Acid (Folic Acid -) 1 mg PO DAILY [facility] Last Admin: 03/07/19 10:31 Dose: 1 mg Sodium Chloride (Normal Saline -) 1,000 mls @ 125 mls/hr IV ASDIR [facility] Last Admin: 03/06/19 23:12 Dose: 125 mls/hr Morphine Sulfate (Morphine Sulfate) 2 mg IVPUSH Q3H PRN PRN Reason: PAIN LEVEL 4 - 6 Last Admin: 03/07/19 11:13 Dose: 2 mg Ondansetron HCl (Zofran Injection) 4 mg IVPUSH Q6H PRN PRN Reason: NAUSEA Polyethylene Glycol (Miralax (For Daily Use) -) 17 gm PO DAILY PRN PRN Reason: CONSTIPATION Last Admin: 03/07/19 10:32 Dose: 17 grams Senna (Senna -) 1 tab PO BID RAUL Last Admin: 03/07/19 10:31 Dose: 1 tab Laboratory Results - last 24 hr 03/06/19 03/06/19 03/07/19 12:45 12:45 07:03 WBC 12.7 H RBC 3.71 Hgb 9.5 L Hct 27.6 L MCV 74.5 L MCH 25.7 MCHC 34.5 RDW 21.0 H Plt Count 307 MPV 8.4 Hypochromia 0 Platelet Estimate Normal Polychromasia 2+ Poikilocytosis 3+ Anisocytosis 2+ Microcytosis 2+ Macrocytosis 0 Target Cells 3+ Schistocytes 2+ Sodium Potassium Chloride Carbon Dioxide Anion Gap BUN Creatinine Est GFR (CKD-EPI)AfAm Est GFR (CKD-EPI)NonAf Random Glucose Calcium Phosphorus Magnesium Total Bilirubin Direct Bilirubin AST ALT Alkaline Phosphatase Troponin I < 0.02 Total Protein Albumin 03/07/19 07:03 WBC RBC Hgb Hct MCV MCH MCHC RDW Plt Count MPV Hypochromia Platelet Estimate Polychromasia Poikilocytosis Anisocytosis Microcytosis Macrocytosis Target Cells Schistocytes Sodium 140 Potassium 4.4 Chloride 108 H Carbon Dioxide 27 Anion Gap 6 L BUN 9.6 Creatinine 0.5 L Est GFR (CKD-EPI)AfAm 126.28 Est GFR (CKD-EPI)NonAf 108.96 Random Glucose 96 Calcium 8.7 Phosphorus 3.9 Magnesium 2.2 Total Bilirubin 1.5 H Direct Bilirubin 0.4 H AST 25 ALT 28 Alkaline Phosphatase 136 H Troponin I Total Protein 7.[address] A/p results reviewed ASSESSMENT AND PLAN: 53 yof with PMHx of Sickle Cell disease, right shoulder replacement from crisis years ago, admitted with sickle cell crisis -Sickle cell crisis -Hemolytic anemia -Dehydration -s/p right shoulder replacement -Right hip avascular necrosis Plan: Aggressive hydration, Pain control with morphine 2 mg IV q3h prn (reports nausea, dizziness with morphine, not a true allergy and tolerated in ED) Asking for dramamine to address her 'dizziness' from morphine. Offered trial of dilaudid, states all cause dizziness. Bendrryl prn, continue morphine. tylenol prn. Monitor hemolysis labs. Follow up haptoglobin CT A/P neg for splenic infarct. Continue folic acid Unclear why patient not on hydroxyurea, recommended to follow up and discuss with her apprentice electrician once symptoms resolve Hematology input if fails to improve or new concerns. DVTPPX lovenox Dispo dc in 2-3 days if improves. Discussed with patient and nursing.
[2019-03-07] MEDS: DOCUSATE SODIUM 100 MG CAPSULE (FP) PO SCH ×2 (14:22→21:28)
--- NOTE | 2019-03-07 14:54 | PN ---
Physical Exam: SUBJECTIVE: Patient seen and examined. Complaining of LUQ abd pain, reports that pain in extremities has improved. Refused morphine overnight because she states it makes her nauseous. On further interview patient states all pain medications make her dizzy and nauseous. Explained to patient that we can give her medication to help with her nausea and dizziness as well. Patient agreed to take Morphine. AppLovin interpretor# [id number] OBJECTIVE: Vital Signs Period Temp Pulse Resp BP Sys/Hutson Pulse Ox Last 24 Hr 97.6 F-98.1 F 68-84 16-20 127-159/71-84 98-100 GENERAL: Alert, awake. Moderate distress due to pain HEAD: Normal with no signs of trauma. EYES: EOMI, no scleral icterus EARS, NOSE, THROAT: Dry mucous membranes NECK: Normal range of motion, supple without lymphadenopathy, JVD, or masses. LUNGS: Breath sounds equal, clear to auscultation bilaterally. No wheezes, and no crackles. No accessory muscle use. HEART: Regular rate and rhythm, normal S1 and S2 without murmur, rub or gallop. ABDOMEN: Soft, normoactive bowel sounds, no guarding, no rebound, no masses. Moderate tenderness to palpation over LUQ. mild distension MUSCULOSKELETAL: Normal range of motion at all joints. No bony deformities or tenderness. EXTREMITIES: 2+ radial and pedal pulses, warm, well-perfused. No calf tenderness. No peripheral edema. NEUROLOGICAL: Normal speech. gait not observed. Sensation intact throughout PSYCHIATRIC: Cooperative. Good eye contact. SKIN: Warm, dry, normal turgor, no rashes or lesions noted, normal capillary refill. Laboratory Results - last 24 hr 03/06/19 03/07/19 03/07/19 12:45 07:03 07:03 WBC 12.7 H RBC 3.71 Hgb 9.5 L Hct 27.6 L MCV 74.5 L MCH 25.7 MCHC 34.5 RDW 21.0 H Plt Count 307 MPV 8.4 Hypochromia 0 Platelet Estimate Normal Polychromasia 2+ Poikilocytosis 3+ Anisocytosis 2+ Microcytosis 2+ Macrocytosis 0 Target Cells 3+ Schistocytes 2+ Sodium 140 Potassium 4.4 Chloride 108 H Carbon Dioxide 27 Anion Gap 6 L BUN 9.6 Creatinine 0.5 L Est GFR (CKD-EPI)AfAm 126.28 Est GFR (CKD-EPI)NonAf 108.96 Random Glucose 96 Calcium 8.7 Phosphorus 3.9 Magnesium 2.2 Total Bilirubin 1.5 H Direct Bilirubin 0.4 H AST 25 ALT 28 Alkaline Phosphatase 136 H Total Protein 7.0 Albumin 3.4 Active Medications Generic Name Dose Route Start Last Admin Trade Name Freq PRN Reason Stop Dose Admin Acetaminophen 1,000 mg 03/06/19 18:39 03/07/19 05:08 Ofirmev Injection - IVPB 1,000 mg Q6H PRN Administration PAIN LEVEL 1 - 3 Diphenhydramine HCl 12.5 mg 03/07/19 10:45 03/07/19 10:58 Benadryl Injection - IVPUSH 12.5 mg Q6H PRN Administration FOR ITCHING Docusate Sodium 100 mg 03/07/19 14:00 03/07/19 14:22 Colace - PO 100 mg TID RAUL Administration Enoxaparin Sodium 40 mg 03/07/19 10:00 03/07/19 10:31 Lovenox - SQ 40 mg DAILY RAUL Administration Folic Acid 1 mg 03/07/19 10:30 03/07/19 10:31 Folic Acid - PO 1 mg DAILY RAUL Administration Sodium Chloride 1,000 mls @ 125 mls/hr 03/06/19 17:45 03/06/19 23:12 Normal Saline - IV 125 mls/hr ASDIR RAUL Administration Morphine Sulfate 2 mg 03/06/19 18:40 03/07/19 14:21 Morphine Sulfate IVPUSH 2 mg Q3H PRN Administration PAIN LEVEL 4 - 6 Ondansetron HCl 4 mg 03/07/19 08:55 Zofran Injection IVPUSH Q6H PRN NAUSEA Polyethylene Glycol 17 gm 03/07/19 10:25 03/07/19 10:32 Miralax (For Daily Use) - PO 17 grams DAILY PRN Administration CONSTIPATION Senna 1 tab 03/07/19 10:30 03/07/19 10:31 Senna - PO 1 tab BID RAUL Administration ASSESSMENT/PLAN: 53 y/o/f with PMHx of sickle cell presenting to the ED for pain in her extremities and abdomen similar to her previous episodes of sickle cell crisis. Admitted for Sickle cell crisis. #Sickle Cell Crisis - Morphine 2mg Q3hr for pain control - Ofirmev Q6hr PRN for pain - agressive IVF - Continue Folic acid - Haptoglobin test pending - Zofran PRN for nausea - CT A/P with IV contrast ordered: Spleen with increased vascularity versus calcification as seen on previous studies. No evidence of splenic infarct. #Prophylaxis - Lovenox #FEN - monitor and replete lytes as need - NS @125mls/hr - Regular diet #Disposition - expect D/C in 1-2 days pending improvement in pain Visit type - Emergency Visit Emergency Visit: Yes ED Registration Date: 03/06/19 Care time: The patient presented to the Emergency Department on the above date and was hospitalized for further evaluation of their emergent condition. - New Patient This patient is new to me today: No - Critical Care Critical Care patient: No ATTENDING PHYSICIAN STATEMENT I saw and evaluated the patient. I reviewed the resident's note and discussed the case with the resident. I agree with the resident's findings and plan as documented. SUBJECTIVE: OBJECTIVE: ASSESSMENT AND PLAN:
[2019-03-07] MEDS: SODIUM CHLORIDE 1,000 ML IV SCH (17:39)
[2019-03-08] MEDS: MORPHINE SULFATE 2 MG/ML VIAL IVPUSH PRN ×2 (02:05→06:23)
[2019-03-08] MEDS: SODIUM CHLORIDE 1,000 ML IV SCH (02:12)
[2019-03-08] MEDS: ACETAMINOPHEN 1000 MG/100 ML VIAL (NON FORMULARY) IVPB PRN (02:17)
[2019-03-08] MEDS: DOCUSATE SODIUM 100 MG CAPSULE (FP) PO SCH ×2 (06:23→14:59)
[2019-03-08] MEDS ORDERED: oxyCODONE HCL 5 MG TABLET PO PRN (08:30)
[2019-03-08] MEDS ORDERED: diphenhydrAMINE HCL 25 MG CAPSULE (FP) PO PRN (08:31)
[2019-03-08 09:23] LABS: HEMOGLOBIN 10.1 GM/dL (10.7-15.3); MCH 25.4 pg (25.7-33.7); MCHC 33.7 g/dl (32.0-36.0); MEAN CELL VOLUME 75.3 fl (80-96); MEAN PLT VOLUME 8.4 fl (7.5-11.1); PLATELET COUNT 319 K/MM3 (134-434); RBC 3.98 M/mm3 (3.60-5.2); RDW 20.7 % (11.6-15.6); WHITE BLOOD COUNT 13.4 K/mm3 (4.0-10.0)
[2019-03-08 09:40] LABS: BLOOD UREA NITROGEN 9.8 mg/dL (7-18); CALCIUM 8.9 mg/dL (8.5-10.1); CREATININE 0.5 mg/dL (0.55-1.3); POTASSIUM 4.2 mmol/L (3.5-5.1)
[2019-03-08] MEDS: FOLIC ACID 1 MG TABLET (FP) PO SCH (09:44)
[2019-03-08] MEDS: SENNOSIDES 8.6MG TABLET (FP) PO SCH (09:44)
[2019-03-08] MEDS: ENOXAPARIN NA (PORCINE) 40 MG/0.4 ML DISP.SYRIN SQ SCH (09:44)
[2019-03-08] MEDS ORDERED: BISACODYL 10 MG SUPP.RECT RC ONE (10:29)
[2019-03-08 11:19] LABS: ALBUMIN 3.5 g/dl (3.4-5.0); BILIRUBIN,DIRECT 0.3 mg/dL (0.0-0.2); BILIRUBIN,TOTAL 1.2 mg/dL (0.2-1); TOT PROT 7.2 g/dl (6.4-8.2)
--- NOTE | 2019-03-08 13:47 | PN ---
Teaching Attending Note Name of Resident: Mike Purdy ATTENDING PHYSICIAN STATEMENT I saw and evaluated the patient. I reviewed the resident's note and discussed the case with the resident. I agree with the resident's findings and plan as documented with exceptions below. SUBJECTIVE: Patient seen and examined. focal left upper abdominal wall pain with coughing, tolerating diet well. reports constipation. OBJECTIVE: Vital Signs Period Temp Pulse Resp BP Sys/Hutson Pulse Ox Last 24 Hr 97.8 F-98.2 F 64-76 18-20 144-153/73-88 Intake & Output 03/05/19 03/06/19 03/07/19 03/08/19 23:59 23:59 23:59 23:59 Intake Total 2150 3220 320 Balance 2150 3220 320 Weight 190 lb 4.8 oz General: lying in bed, comfortable, Chest: CTAb, no rales or wheezing Abdomen:soft, NT,no voluntary or involuntary guarding or rigidity Extremities: no edema Home Medications Medication Instructions Recorded Folic Acid 1 mg PO DAILY 01/05/18 Gabapentin 100 mg PO DAILY 03/06/19 Docusate Sodium [Colace -] 100 mg PO TID #21 capsule 03/08/19 Oxycodone HCl/Acetaminophen 1 tab PO Q6H PRN 03/08/19 [Percocet 5-325 mg Tablet] Polyethylene Glycol 3350 [Miralax 17 gm PO DAILY PRN #7 bottle 03/08/19 119 gm Btl -] Sennosides [Senna -] 1 tab PO BID #14 tablet 03/08/19 Active Medications Diphenhydramine HCl (Benadryl -) 25 mg PO Q6H PRN PRN Reason: FOR ITCHING Docusate Sodium (Colace -) 100 mg PO TID [facility] Last Admin: 03/08/19 06:23 Dose: 100 mg Enoxaparin Sodium (Lovenox -) 40 mg SQ DAILY [facility] Last Admin: 03/08/19 09:44 Dose: 40 mg Folic Acid (Folic Acid -) 1 mg PO DAILY [facility] Last Admin: 03/08/19 09:44 Dose: 1 mg Sodium Chloride (Normal Saline -) 1,000 mls @ 125 mls/hr IV ASDIR [facility] Last Admin: 03/08/19 02:12 Dose: 125 mls/hr Ondansetron HCl (Zofran Injection) 4 mg IVPUSH Q6H PRN PRN Reason: NAUSEA Oxycodone HCl (Roxicodone -) 5 mg PO Q4H PRN PRN Reason: PAIN LEVEL 7 - 10 Polyethylene Glycol (Miralax (For Daily Use) -) 17 gm PO DAILY PRN PRN Reason: CONSTIPATION Last Admin: 03/07/19 10:32 Dose: 17 grams Senna (Senna -) 1 tab PO BID RAUL Last Admin: 03/08/19 09:44 Dose: 1 tab Laboratory Results - last 24 hr 03/07/19 03/08/19 03/08/19 07:03 07:40 07:40 WBC 13.4 H RBC 3.98 Hgb 10.1 L Hct 30.0 L MCV 75.3 L MCH 25.4 L MCHC 33.7 RDW 20.7 H Plt Count 319 MPV 8.4 Haptoglobin < 10 L Sodium 140 Potassium 4.2 Chloride 107 Carbon Dioxide 27 Anion Gap 6 L BUN 9.8 Creatinine 0.5 L Est GFR (CKD-EPI)AfAm 126.28 Est GFR (CKD-EPI)NonAf 108.96 Random Glucose 84 Calcium 8.9 Total Bilirubin 1.2 H Direct Bilirubin 0.3 H AST 21 ALT 24 Alkaline Phosphatase 143 H Total Protein 7.2 Albumin 3.5 ASSESSMENT AND PLAN: 53 yof with PMHx of Sickle Cell disease, right shoulder replacement from crisis years ago, admitted with sickle cell crisis -Sickle cell crisis -Hemolytic anemia -Dehydration -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 CT A/P neg for concerns. Resume po percocet prn. Tolerating diet well. Bowel regimen. PT eval noted, continue outpatient PT. Stressed need for follow up with outpatient paper plate machine tender and discuss hydroxyurea. Dc home today with outpatient follow up as above Plan discussed with patient in detail, with help of wind farm designer service #[id number] patient relayed full understanding of the dc instructions.
[2019-03-08 14:37] VITALS: BP 144/82; PULSE 79; TEMP 99.2
--- NOTE | 2019-03-10 18:57 | DS ---
Physical Exam: SUBJECTIVE: Patient seen and examined. states that the pain in her extremities has improved, still complaining of pain in her LUQ. Also complaining of constipation but states that always happens when she has to come into the hospital for a sickle cell crisis. No acute events overnight. OBJECTIVE: PHYSICAL EXAM GENERAL: Alert, awake. no acute distress HEAD: Normal with no signs of trauma. EYES: EOMI, no scleral icterus, no ptosis EARS, NOSE, THROAT: Dry mucous membranes NECK: Normal range of motion, supple without lymphadenopathy, JVD, or masses. LUNGS: Breath sounds equal, clear to auscultation bilaterally. No wheezes, and no crackles. No accessory muscle use. HEART: Regular rate and rhythm, normal S1 and S2 without murmur, rub or gallop. ABDOMEN: Soft, nondistended, normoactive bowel sounds, no guarding, no rebound, no masses. mild tenderness to palpation over LUQ MUSCULOSKELETAL: Normal range of motion at all joints. No bony deformities or tenderness. EXTREMITIES: 2+ radial and pedal pulses, warm, well-perfused. No calf tenderness. No peripheral edema. NEUROLOGICAL: Normal speech. gait not observed. Sensation intact throughout PSYCHIATRIC: Cooperative. Good eye contact. SKIN: Warm, dry, normal turgor, no rashes or lesions noted, normal capillary refill. LABS HOSPITAL COURSE: Date of Admission:03/06/19 Date of Discharge: 03/10/19 53 y/o/f with PMHx of sickle cell presenting to the ED for pain in her extremities and abdomen similar to her previous episodes of sickle cell crisis. Admitted for Sickle cell crisis. Patient was given IVF, folic acid supplementation, and pain control with IV tylenol and morphine in the hospital. CT AP was done which showed increased vascularity of the spleen versus calcification as seen on previous studies. There was no evidence of splenic infarct. Patient was able to tolerate a diet well while admitted and had improvement in her pain status. Patient discharged home with recommendation to follow up with PCP and her rf manager. The importance of following up with her rf manager to help prevent future sickle cell crisis was expressed to the patient. Minutes to complete discharge: 36 Discharge Summary Problems reviewed: Yes Reason For Visit: HB-SS DISEASE WITH CRISIS Condition: Stable - Instructions Diet, Activity, Other Instructions: You presented to the hospital with diffuse pain with symptoms consistent for a sickle cell crisis, which you have had in the past. You were given folic acid supplementation, medicine for pain control and nausea, and IV fluids for hydration which helped to improve your symptoms. It is important for you to follow up with your primary care doctor and your rf manager to reduce recurrences of a sickle cell crisis. No changes were made in your medications. 1. You are being prescribed the following medications for the next week to help you have bowel movements: -Colace 100mg three times a day -Miralax once daily -Senna 1 tablet twice a day Follow up with the following physicians: 1. Please follow up with your primary care provider within one week of discharge. 2. Please follow up your rf manager for further management of your sickle cell disease. If you are not able to follow up with your rf manager, a referral has been included for Dr. Oswald, a rf manager associated with [facility]. Activity and Diet 1. You are being discharged home, recommend daily exercise to help strengthen your muscles. Continue outpatient physical therapy. Continue all your other medications as prescribed. Please return to the ER if you have any signs or symptoms of chest pain, shortness of breath, uncontrollable fever, chills, nausea, vomiting, numbness, tingling, or weakness in any part of your body, changes in vision, or slurred speech. Please return to the ER if symptoms persist, worsen, or new symptoms arise. Referrals: Samantha Escobar NP [Primary Care Provider] - Ignacio Oswald MD [Staff Physician] - Disposition: HOME - Home Medications Comprehensive Discharge Medication List: Ambulatory Orders Folic Acid 1 mg PO DAILY 01/05/18 Gabapentin 100 mg PO DAILY 03/06/19 Docusate Sodium [Colace -] 100 mg PO TID #21 capsule 03/08/19 Oxycodone HCl/Acetaminophen [Percocet 5-325 mg Tablet] 1 tab PO Q6H PRN Polyethylene Glycol 3350 [Miralax 119 gm Btl -] 17 gm PO DAILY PRN #7 bottle Sennosides [Senna -] 1 tab PO BID #14 tablet 03/08/19 This patient is new to me today: No Emergency Visit: Yes ED Registration Date: 03/06/19 Care time: The patient presented to the Emergency Department on the above date and was hospitalized for further evaluation of their emergent condition. Critical Care patient: No - Discharge Referral Referred to [facility] Med P.C.: No ATTENDING PHYSICIAN STATEMENT I saw and evaluated the patient. I reviewed the resident's note and discussed the case with the resident. I agree with the resident's findings and plan as documented. SUBJECTIVE: OBJECTIVE: ASSESSMENT AND PLAN:
== END 2019-03-08 18:04 | disposition home or self-care (01) | DRG 812 ==
LOC: JER 11:42 → JERBED 19:14 → J6S 22:16
PROVIDERS: ADMIT Hospitalist; ATTEND Hospitalist
DX: D57.00 Hb-SS disease with crisis, unspecified (principal); D58.9 Hereditary hemolytic anemia, unspecified; E86.0 Dehydration
CPT/HCPCS: 36415; 71045-TC-FY; 74177-TC; 80048; 80053; 80076; 82248; 83010; 83615; 83735; 84100; 84484; 85025; 85027; 85044; 93005; 93010; 97162-GP; 99285-25; J0131; J7030

== ENCOUNTER 2019-12-04 12:47 | Emergency (ER) | payer OTHER ==
[2019-12-04 13:00] VITALS: TEMP 98.3; BMI 36.0
--- NOTE | 2019-12-04 13:21 | PDOC ---
History of Present Illness - General Chief Complaint: Sickle Cell Crisis Stated Complaint: SICKLE CELL CRISIS History Source: Patient, Heel Seat Fitter Machine Used Exam Limitations: No Limitations - History of Present Illness Initial Comments: 12/04/19 14:11 48 y.o. F PMHx of sickle cell disease presenting w/ pain in her R arm radiating to the fingertips at a 8/10 intensity persistent for the past 2 days. Patient stated this is her 3rd crisis in the past 4 months. Pt stated she took 7.5mg percocet yesterday and 2 x 600mg ibuprofen today providing no symptom relief. She was seen at [facility] in july for a clot in the L arm which was treated there. Currently she has a headache, 1 episode of emesis yesterday NBNB, R arm pain, deniea chest pain, SOB, blurry/decreased vision. PCP: Dr. Escobar Specialist: Contract Clerk at [facility] PMHx: Sickle cell disease PSHx: R total shoulder, cholecystectomy Meds: In Chart Allergies: NKDA Ultrasound: No acute evidence of DVT Dispo: Monitor in ED until symptoms subside then D/C 12/04/19 16:21 Is this a multiple visit Asthma Patient?: No Timing/Duration: constant Severity: moderate Modifying Factors: improves with: movement Associated Symptoms: reports: headaches. denies: chest pain, shortness of breath Aspirin Received prior to arrival: Yes: no aspirin today Beta Bolivar Contraindications(Core Measure): Yes: Not Prescribed Beta Bolivar Given by EMS(Core Measure): No Beta Bolivar Taken at Home(Core Measure): No Beta Bolivar Not Indicated at this Time(Core Measure): No Past History - Travel History Traveled outside of the country in the last 30 days: No Close contact w/someone who was outside of country & ill: No - Medical History Allergies/Adverse Reactions: Allergies Allergy/AdvReac Type Severity Reaction Status Date / Time No Known Allergies Allergy Verified 03/06/19 18:30 Home Medications: Ambulatory Orders Folic Acid 1 mg PO DAILY 01/05/18 Gabapentin 100 mg PO DAILY 03/06/19 Docusate Sodium [Colace -] 100 mg PO TID #21 capsule 03/08/19 Oxycodone HCl/Acetaminophen [Percocet 5-325 mg Tablet] 1 tab PO Q6H PRN 03/08/19 Polyethylene Glycol 3350 [Miralax 119 gm Btl -] 17 gm PO DAILY PRN #7 bottle 03/08/19 Sennosides [Senna -] 1 tab PO BID #14 tablet 03/08/19 Anemia: Yes (sickle cell anemia) Asthma: No Cancer: No Cardiac Disorders: No CVA: No COPD: No CHF: No Dementia: No Diabetes: No GI Disorders: No Disorders: No HTN: No Hypercholesterolemia: No Liver Disease: No Seizures: No Thyroid Disease: No - Surgical History Abdominal Surgery: No Appendectomy: No Cardiac Surgery: No Cholecystectomy: Yes Lung Surgery: No Neurologic Surgery: No Orthopedic Surgery: No - Reproductive History Is Patient Now?: No - Psycho-Social/Smoking History Smoking History: Never smoked Have you smoked in the past 12 months: No Information on smoking cessation initiated: No - Substance Abuse Hx (Audit-C & DAST Scrn) How often the patient has a drink containing alcohol: Never Score: In Men: 4 or > Positive; In Women: 3 or > Positive: 0 Screen Result (Pos requires Nsg. Audit-10AR): Negative In the last yr the pt used illegal drug/Rx for NonMed reason: No Score: Yes response is considered Positive: 0 Screen Result (Positive result requires Nsg. DAST-10): Negative Review of Systems - Review of Systems Able to Perform ROS?: Yes Is the patient limited Cambodian proficient: Yes Constitutional: No: Chills, Fever HEENTM: No: Blurred Vision, Double Vision Respiratory: No: Cough, Shortness of Breath, SOB at Rest Cardiac (ROS): No: Chest Pain, Lightheadedness ABD/GI: Yes: Nausea, Vomiting. No: Constipated, Diarrhea : No: Burning, Dysuria Musculoskeletal: Yes: Joint Pain, Other (Pain in R arm from elbow to fingertips) Neurological: Yes: Headache. No: Numbness, Tingling, Dizziness Hematologic/Lymphatic: Yes: Blood Clots, Easy Bruising *Physical Exam - Vital Signs Last Vital Signs Temp Pulse Resp BP Pulse Ox 98.3 F 78 18 132/78 97 12/04/19 12:58 12/04/19 12:58 12/04/19 12:58 12/04/19 12:58 12/04/19 12:58 - Physical Exam General Appearance: Yes: Nourished, Appropriately Dressed, Apparent Distress Respiratory/Chest: positive: Lungs Clear, Normal Breath Sounds. negative: Chest Tender, Respiratory Distress, Accessory Muscle Use, Crackles, Wheezing Cardiovascular: positive: Regular Rhythm, Regular Rate. negative: Edema, JVD Gastrointestinal/Abdominal: positive: Normal Bowel Sounds, Flat, Soft. negative: Tender, Organomegaly, Pulsatile Mass, Distended, Guarding, Rebound, Tenderness Musculoskeletal: positive: Normal Inspection, Other (R arm tenderness upon palpation). negative: CVA Tenderness Extremity: positive: Tender. negative: Pedal Edema, Calf Tenderness Integumentary: positive: Normal Color, Dry, Warm Neurologic: positive: Fully Oriented, Alert, Normal Mood/Affect, Normal Response. negative: Facial Droop ED Treatment Course - LABORATORY CBC & Chemistry Diagram: 12/04/19 14:20 12/04/19 13:37 Medical Decision Making - Medical Decision Making 12/04/19 14:22 48 y.o. F PMHx of sickle cell disease presenting w/ pain in her R arm radiating to the fingertips at a 8/10 intensity persistent for the past 2 days. DDx: Sickle cell, Acute chest syndrome, DVT, aplastic crisis Labs: Cr 0.7, Alk Phos 142, Bili 1.2 CBC: WBC 13.7, RBC 4.16, Hgb 10.9, Hct 31.9, MCV 76, RDW 19.8, Retic 6.58 Ultrasound: No acute evidence of DVT EKG: NSR, QTc 421ms Reglan 10 mg for patients Hx of N/V with opioids Toradol 15mg IV for pain relief Dispo: D/C home 12/04/19 16:21 Discharge - Discharge Information Problems reviewed: Yes Clinical Impression/Diagnosis: Sickle cell pain crisis Condition: Improved Disposition: HOME - Admission No - Follow up/Referral Referrals: Samantha Escobar NP [Primary Care Provider] - - Patient Discharge Instructions Patient Printed Discharge Instructions: DI for Sickle Cell Anemia, Pain Crisis -- Adult Additional Instructions: You were seen in the emergency department for sickle cell pain crisis. You received toradol and reglan . Your labs and imaging showed sickle cell pain crisis with no evidence of clot on ultrasound. This can be caused by sickle cell disease. As such you were treated for symptomatic management. You were given toradol and reglan in the emergency department. Please follow up with your primary care physician and or intranet specialist at [facility] regarding your visit to the emergency department. If you experience profound pain, shortness of breath, difficulty breathing, chest pain, blurry or double vision, nausea or vomiting please return to the emergency department. Lo vieron en el departamento de emergencias por pillo crisis de dolor de clulas falciformes. Recibiste Dilaudid y Reglan. Marina laboratorios e imgenes mostraron pillo crisis de dolor de clulas falciformes sin evidencia de cogulo en la ecografa [place] puede ser causado por la anemia de clulas falciformes. Sariah giovanni, fue tratado para el manejo sintomtico. Le dieron Dilaudid y Reglan en el departamento de emergencias. Elda un seguimiento con fitzgerald mdico de atencin primaria o especialista en hemetologa en [facility] con respecto a fitzgerald visita al departamento de e mergencias. Si experimenta un dolor profundo, falta de aire, dificultad para respirar, dolor en el pecho, visin borrosa o doble, nuseas o vmitos, regrese al departamento de emergencias. Print Language: UKRAINIAN - Post Discharge Activity
[2019-12-04] MEDS ORDERED: SODIUM CHLORIDE 0.9% 500 ML INFUS.BAG IV ONE (14:04)
[2019-12-04] MEDS ORDERED: ONDANSETRON 4 MG/2 ML VIAL IVPUSH ONE (14:05)
[2019-12-04] MEDS ORDERED: morphine CARPU-JECT 4 MG/1 ML DISP.SYRIN IVPUSH ONE (14:05)
[2019-12-04] MEDS ORDERED: morphine SULFATE 4 MG/ML VIAL ONE (14:30)
[2019-12-04] MEDS ORDERED: MORPHINE SULFATE 2 MG/ML VIAL ONE (14:31)
[2019-12-04] MEDS ORDERED: HYDROmorphone HCL CARPU-JECT 2 MG/1 ML DISP.SYRIN IVPUSH ONE (14:31)
--- NOTE | 2019-12-04 14:36 | PDOC ---
Documentation entered by Hal Cooper SCRIBE, acting as scribe for Jessica Yoon MD. Jessica Yoon MD: This documentation has been prepared by the Kenneth spain Xhesika, SCRIBE, under my direction and personally reviewed by me in its entirety. I confirm that the documentation accurately reflects all work, treatment, procedures, and medical decision making performed by me. Attending Attestation - Resident Resident Name: Ramon Geiger - ED Attending Attestation I have performed the following: I have examined & evaluated the patient, The case was reviewed & discussed with the resident, I agree w/resident's findings & plan - HPI HPI: 12/04/19 13:36 The patient is a 54 year old female, with a significant past medical history of sickle cell anemia, who presents to the emergency department with headache and right arm pain. Pt describes her pain as 8/10, starting at her elbow and radiating to her fingertips. She states she took percocet 7.5mg yesterday and two 600mg ibuprofen today. Pt reports one episode of nbnb emesis. Patient reports her symptoms are similar to her previous sickle cell crisis. Denies fever, chills, chest pain, SOB, palpitation, dizziness, weakness, N,D, abdominal pain, bladder and bowel problems, leg swelling, No sick contacts or travel. No new changes in medications. Allergies: NKDA Past Surgical History: Cholecystectomy, Section Social History: Non smoker. No ETOH or recreational drug use. PCP: Dr. Escobar 12/04/19 14:34 - Physicial Exam PE: 12/04/19 13:36 Agree with the resident's HPI and PE as documented in the electronic medical record. NAD, well appearing, EOMI, PERRL, MMM, nl conjunctiva, anicteric; neck supple. lungs clear, RRR, abdomen soft nontender. Back nontender. BAEZ x4, no focal neuro deficits. No peripheral edema. normal color for ethnicity, WWP. +right forearm/hand tender to palp, no swelling or edema. FROM 12/04/19 14:35 - Medical Decision Making 12/04/19 14:35 Vital Signs Temp Pulse Resp BP Pulse Ox 98.3 F 78 18 132/78 97 12/04/19 12:58 12/04/19 12:58 12/04/19 12:58 12/04/19 12:58 12/04/19 12:58 vitals reviewed ddx. sickle cell crisis, anemia, electrolyte/metabolic derangements. DVT, msk pain. no cp or sob doubt ACS/acute chest no fever, no systemic findings nontoxic appearing analgesia toradol, reglan, fluids duplex to r/o DVT given her recent history in July 2019 in c/l arm 12/04/19 16:17 duplex is negative for DVT labs and lytes wnl elevated retic count, as expected with her sickle cell baseline anemia and leukocytosis, has chronic stress state. pain improved DC stable condition, analgesia regimen at home, monitor sx, f/u PCP <Jessica Yoon - Last Filed: 12/04/19 16:23> Heart Score/ECG Review #1 ECG reviewed & interpreted by me at: 14:25 General ECG Interpretation: Sinus Rhythm, Normal Rate, Normal Intervals 12/04/19 14:35 EKG normal sinus rhythm 70 beats per min, no interval abnormalities, narrow QRS, ST and T wave segments and morphology normal. <Jessica Yoon - Last Filed: 12/04/19 16:23> Discharge - Discharge Information Problems reviewed: Yes <Ramon Geiger - Last Filed: 12/04/19 14:47> - Discharge Information Problems reviewed: Yes - Admission No <Jessica Yoon - Last Filed: 12/04/19 16:23> - Discharge Information Clinical Impression/Diagnosis: Sickle cell pain crisis, Right arm pain Condition: Improved Disposition: HOME - Follow up/Referral Referrals: Samantha Escobar [employer]ION[employer] UNDERWRITER [Primary Care Provider] - - Patient Discharge Instructions Patient Printed Discharge Instructions: DI for Sickle Cell Anemia, Pain Crisis -- Adult Additional Instructions: You were seen in the emergency department for sickle cell pain crisis. You received Dilaudid and reglan . Your labs and imaging showed sickle cell pain crisis with no evidence of clot on ultrasound. This can be caused by sickle cell disease. As such you were treated for symptomatic management. You were given Dilaudid and reglan in the emergency department. Please follow up with your primary care physician and or investment specialist at [facility] regarding your visit to the emergency department. If you experience profound pain, shortness of breath, difficulty breathing, chest pain, blurry or double vision, nausea or vomiting please return to the emergency department. Lo vieron en el departamento de emergencias por pillo crisis de dolor de clulas falciformes. Recibiste Dilaudid y Reglan. Marina laboratorios e imgenes mostraron pillo crisis de dolor de clulas falciformes sin evidencia de cogulo en la ecografa [place] puede ser causado por la anemia de clulas falciformes. [place] giovanni, fue tratado para el manejo sintomtico. Le dieron Dilaudid y Reglan en el departamento de emergencias. Elda un seguimiento con [facility] mdico de atencin primaria o especialista en hemetologa en [place] con respecto a fitzgerald visita al departamento de emergencias. Si experimenta un dolor profundo, falta de aire, dificultad para respirar, dolor en el pecho, visin borrosa o doble, nuseas o vmitos, regrese al departamento de emergencias. Print Language: LAO - Post Discharge Activity
[2019-12-04] MEDS ORDERED: METOCLOPRAMIDE HCL INJECTION 10 MG/2 ML VIAL IVPUSH ONE (14:40)
[2019-12-04] MEDS ORDERED: HYDROmorphone HCl 2 MG/ML VIAL ONE (14:46)
[2019-12-04] MEDS ORDERED: METOCLOPRAMIDE HCL INJECTION 10 MG/2 ML VIAL ONE (14:46)
[2019-12-04 14:59] LABS: BASO % 0.8 % (0-2.0); EOS % 2.3 % (0-4.5); HEMATOCRIT 31.9 % (32.4-45.2); HEMOGLOBIN 10.9 GM/dL (10.7-15.3); LYMPH % 32.2 % (8-40); MCH 26.2 pg (25.7-33.7); MCHC 34.1 g/dl (32.0-36.0); MEAN CELL VOLUME 76.7 fl (80-96); MEAN PLT VOLUME 8.6 fl (7.5-11.1); MONO % 7.8 % (3.8-10.2); NEUT % 56.9 % (42.8-82.8); PLATELET COUNT 342 K/MM3 (134-434); RBC 4.16 M/mm3 (3.60-5.2); RDW 19.8 % (11.6-15.6); RETICULOCYTES 5.68 % (0.5-1.5); WHITE BLOOD COUNT 13.7 K/mm3 (4.0-10.0)
[2019-12-04 15:51] LABS: ALBUMIN 3.8 g/dl (3.4-5.0); BILIRUBIN,TOTAL 1.2 mg/dL (0.2-1); BLOOD UREA NITROGEN 20.6 mg/dL (7-18); CALCIUM 9.1 mg/dL (8.5-10.1); CREATININE 0.7 mg/dL (0.55-1.3); POTASSIUM 4.4 mmol/L (3.5-5.1); TOT PROT 7.8 g/dl (6.4-8.2)
[2019-12-04] MEDS ORDERED: KETOROLAC TROMETHAMINE 30 MG/1 ML VIAL IM ONE (16:20)
[2019-12-04] MEDS ORDERED: KETOROLAC TROMETHAMINE 15 MG/ML VIAL ONE (16:24)
[2019-12-04 16:57] VITALS: BP 149/78; PULSE 70
--- NOTE | 2019-12-05 14:05 | EKG ---
Test Reason : Blood Pressure : / mmHG Vent. Rate : 070 BPM Atrial Rate : 070 BPM P-R Int : 150 ms QRS Dur : 080 ms QT Int : 390 ms P-R-T Axes : 029 023 047 degrees QTc Int : 421 ms NORMAL SINUS RHYTHM NORMAL ECG WHEN COMPARED WITH ECG OF 06-MAR-2019 17:58, NO SIGNIFICANT CHANGE WAS FOUND Confirmed by DONTE RENTERIA MD ([id number]) on 12/05/2019 2:05:10 PM Referred By: Confirmed By:DONTE RENTERIA MD
== END 2019-12-04 16:56 | disposition home or self-care (01) ==
LOC: JER 12:47
PROC: 3E0233Z Introduction of Anti-inflammatory into Muscle, Percutaneous Approach (ICD-10-PCS; principal; 2019-12-04)
PROC: 3E033NZ Introduction of Analgesics, Hypnotics, Sedatives into Peripheral Vein, Percutaneous Approach (ICD-10-PCS; 2019-12-04)
PROC: 3E033GC Introduction of Other Therapeutic Substance into Peripheral Vein, Percutaneous Approach (ICD-10-PCS; 2019-12-04)
DX: D57.00 Hb-SS disease with crisis, unspecified (principal)
CPT/HCPCS: 36415; 80053; 85025; 85045; 86850; 86900; 86901; 93005; 93010; 93970-TC; 99285-25

== ENCOUNTER 2021-12-03 21:45 | Inpatient (IN) | payer OTHER ==
[2021-12-03] MEDS ORDERED: morphine CARPU-JECT 2 MG/1 ML DISP.SYRIN IVPUSH ONE (22:18)
[2021-12-03] MEDS ORDERED: ONDANSETRON 4 MG/2 ML VIAL IVPUSH ONE (22:18)
[2021-12-03] MEDS ORDERED: METOCLOPRAMIDE HCL INJECTION 10 MG/2 ML VIAL IVPUSH ONE (22:22)
[2021-12-03] MEDS ORDERED: morphine SULFATE 4 MG/ML VIAL ONE (22:48)
[2021-12-03] MEDS ORDERED: METOCLOPRAMIDE HCL INJECTION 10 MG/2 ML VIAL ONE (22:49)
[2021-12-03] MEDS ORDERED: ONDANSETRON 4 MG/2 ML VIAL ONE (22:49)
[2021-12-03 23:00] LABS: BASO % 0.7 % (0-2.0); EOS % 0.3 % (0-4.5); HEMATOCRIT 32.1 % (32.4-45.2); LYMPH % 22.5 % (8-40); MCH 26.8 pg (25.7-33.7); MCHC 34.2 g/dl (32.0-36.0); MEAN CELL VOLUME 78.5 fl (80-96); MEAN PLT VOLUME 8.7 fl (7.5-11.1); MONO % 4.2 % (3.8-10.2); NEUT % 72.3 % (42.8-82.8); PLATELET COUNT 335 10^3/uL (134-434)
[2021-12-03 23:13] LABS: ALBUMIN 3.8 g/dl (3.4-5.0); BLOOD UREA NITROGEN 18.2 mg/dL (7-18); CALCIUM 8.8 mg/dL (8.5-10.1)
[2021-12-03 23:16] LABS: CREATININE 0.7 mg/dL (0.55-1.3)
[2021-12-03 23:18] LABS: BILIRUBIN,TOTAL 1.1 mg/dL (0.2-1); TOT PROT 7.6 g/dl (6.4-8.2)
[2021-12-04] MEDS ORDERED: morphine CARPU-JECT 4 MG/1 ML DISP.SYRIN IVPUSH ONE (02:04)
[2021-12-04] MEDS ORDERED: morphine SULFATE 4 MG/ML VIAL ONE ×5 (02:08→18:42)
[2021-12-04] MEDS: SODIUM CHLORIDE 0.45% 1,000 ML IV SCH (06:43)
[2021-12-04 08:20] LABS: EPI CELLS 5 /uL (0-25.1); HYALINE CASTS 0 /uL (0-3.1); PH,URINE 6.5 (5.0-8.0); URINE APPEARANCE CLEAR; URINE BACTERIA 11 /uL (0-1359); URINE BILIRUBIN NEGATIVE (NEGATIVE); URINE COLOR YELLOW; URINE GLUCOSE (UA) NEGATIVE (NEGATIVE); URINE KETONE NEGATIVE (NEGATIVE); URINE LEUK ESTERASE NEGATIVE (NEGATIVE); URINE NITRITE NEGATIVE (NEGATIVE); URINE PROTEIN 2+ (NEGATIVE); URINE RBC 8 /uL (0-23.9); URINE UROBILINOGEN 0.2 mg/dL (0.2-1.0); URINE WBC 37 /uL (0-25.8)
[2021-12-04] MEDS ORDERED: morphine CARPU-JECT 4 MG/1 ML DISP.SYRIN IVPUSH SCH ×2 (09:45→10:15)
[2021-12-04] MEDS ORDERED: morphine CARPU-JECT 4 MG/1 ML DISP.SYRIN IVPUSH PRN (10:19)
[2021-12-04] MEDS ORDERED: morphine SULFATE 4 MG/ML VIAL IVPUSH PRN ×2 (10:27→15:16)
[2021-12-04] MEDS ORDERED: ENOXAPARIN NA (PORCINE) 80 MG/0.8 ML DISP.SYRIN SQ ONE (11:07)
[2021-12-04] MEDS: ENOXAPARIN NA (PORCINE) 40 MG/0.4 ML DISP.SYRIN SQ SCH (11:36)
[2021-12-04] MEDS ORDERED: IBUPROFEN 400 MG TABLET (FP) PO ONE (12:09)
[2021-12-04] MEDS: IBUPROFEN 400 MG TABLET (FP) PO PRN (12:14)
[2021-12-04 12:28] LABS: HEMATOCRIT 32.6 % (32.4-45.2); HEMOGLOBIN 11.5 GM/dL (10.7-15.3); MCH 27.7 pg (25.7-33.7); MCHC 35.4 g/dl (32.0-36.0); MEAN CELL VOLUME 78.4 fl (80-96); MEAN PLT VOLUME 8.1 fl (7.5-11.1); PLATELET COUNT 333 10^3/uL (134-434); RBC 4.16 M/mm3 (3.60-5.2); WHITE BLOOD COUNT 16.1 K/mm3 (4.0-10.0)
[2021-12-04 12:49] LABS: BLOOD UREA NITROGEN 8.8 mg/dL (7-18); CALCIUM 9.1 mg/dL (8.5-10.1); MAGNESIUM 2.1 mg/dL (1.8-2.4)
[2021-12-04 12:50] LABS: ALBUMIN 3.7 g/dl (3.4-5.0)
[2021-12-04 12:52] LABS: PHOSPHOROUS 3.7 mg/dL (2.5-4.9)
[2021-12-04 12:53] LABS: CREATININE 0.6 mg/dL (0.55-1.3)
[2021-12-04 12:54] LABS: BILIRUBIN,TOTAL 1.2 mg/dL (0.2-1); TOT PROT 7.6 g/dl (6.4-8.2)
[2021-12-04] MEDS ORDERED: morphine SULFATE 4 MG/ML VIAL IVPUSH ONE (13:28)
[2021-12-04 13:30] LABS: ANISOCYTOSIS 1+; MACROCYTOSIS 0; PLATELET ESTIMATE NORMAL; TARGET CELLS 3+
[2021-12-04] MEDS ORDERED: NALOXONE HCL 0.4 MG/ML VIAL IVPUSH PRN (13:30)
[2021-12-04] MEDS: INSULIN SLIDING SCALE (NOVOLOG) 1 VIAL SQ SCH ×3 (13:52→18:28)
[2021-12-04] MEDS: morphine CARPU-JECT 4 MG/1 ML DISP.SYRIN IVPUSH ONE ×2 (13:53→18:26)
[2021-12-04] MEDS ORDERED: HYDROmorphone HCl 2 MG/ML VIAL IVPUSH PRN (15:16)
[2021-12-04] MEDS ORDERED: ACETAMINOPHEN 325 MG TABLET (FP) PO PRN (15:17)
[2021-12-04 15:52] LABS: SICKLE CELL SCREEN POSITIVE (NEGATIVE)
[2021-12-04] MEDS ORDERED: HYDROmorphone HCl 2 MG/ML VIAL ONE (16:41)
[2021-12-04] MEDS: DULoxetine HCL 30 MG CAPSULE.DR PO SCH (17:17)
[2021-12-04] MEDS ORDERED: diphenhydrAMINE HCL 25 MG CAPSULE (FP) PO ONE ×2 (18:24→18:42)
[2021-12-04] MEDS: morphine SULFATE 4 MG/ML VIAL IVPUSH PRN (18:47)
[2021-12-05] MEDS ORDERED: MIRTAZAPINE 15 MG TABLET (FP) ONE (02:17)
[2021-12-05] MEDS: INSULIN SLIDING SCALE (NOVOLOG) 1 VIAL SQ SCH ×5 (02:42→22:10)
[2021-12-05] MEDS: MIRTAZAPINE 15 MG TABLET (FP) PO SCH ×2 (02:42→22:24)
[2021-12-05] MEDS ORDERED: morphine SULFATE 4 MG/ML VIAL ONE (06:11)
[2021-12-05] MEDS: SODIUM CHLORIDE 0.45% 1,000 ML IV SCH ×2 (06:18→18:03)
[2021-12-05] MEDS: morphine SULFATE 4 MG/ML VIAL IVPUSH PRN ×2 (06:18→22:47)
[2021-12-05 08:21] LABS: HEMATOCRIT 34.5 % (32.4-45.2); HEMOGLOBIN 11.9 GM/dL (10.7-15.3); MCH 26.8 pg (25.7-33.7); MCHC 34.5 g/dl (32.0-36.0); MEAN CELL VOLUME 77.8 fl (80-96); MEAN PLT VOLUME 8.9 fl (7.5-11.1); PLATELET COUNT 325 10^3/uL (134-434); RBC 4.43 M/mm3 (3.60-5.2)
[2021-12-05 08:41] LABS: CALCIUM 9.1 mg/dL (8.5-10.1)
[2021-12-05 08:42] LABS: ALBUMIN 3.7 g/dl (3.4-5.0); BLOOD UREA NITROGEN 8.1 mg/dL (7-18); MAGNESIUM 2.2 mg/dL (1.8-2.4)
[2021-12-05 08:45] LABS: CREATININE 0.6 mg/dL (0.55-1.3); PHOSPHOROUS 3.7 mg/dL (2.5-4.9)
[2021-12-05 08:46] LABS: BILIRUBIN,TOTAL 1.3 mg/dL (0.2-1); TOT PROT 7.5 g/dl (6.4-8.2)
[2021-12-05] MEDS ORDERED: HYDROmorphone HCl 2 MG/ML VIAL ONE ×2 (09:18→15:54)
[2021-12-05] MEDS ORDERED: DULoxetine HCL 30 MG CAPSULE.DR PO ONE (09:18)
[2021-12-05] MEDS ORDERED: ENOXAPARIN NA (PORCINE) 40 MG/0.4 ML DISP.SYRIN SQ ONE (09:19)
[2021-12-05] MEDS: DULoxetine HCL 30 MG CAPSULE.DR PO SCH (09:55)
[2021-12-05] MEDS: ENOXAPARIN NA (PORCINE) 40 MG/0.4 ML DISP.SYRIN SQ SCH (09:55)
[2021-12-05] MEDS: HYDROmorphone HCl 2 MG/ML VIAL IVPUSH PRN ×2 (09:56→15:58)
[2021-12-05 17:35] VITALS: BMI 35.2
[2021-12-05] MEDS: IBUPROFEN 400 MG TABLET (FP) PO PRN (18:21)
[2021-12-05] MEDS: LACTATED RINGERS SOLUTION 1,000 ML/1,000 ML INFUS.BAG IV SCH (23:37)
[2021-12-05] MEDS ORDERED: amLODIPine BESYLATE 5 MG TABLET (FP) PO ONE (23:38)
[2021-12-05] MEDS ORDERED: amLODIPine BESYLATE 5 MG TABLET (FP) PO SCH (23:38)
[2021-12-06] MEDS ORDERED: hydrALAZINE HCL 20 MG/ML VIAL IVPB ONE (01:07)
[2021-12-06] MEDS ORDERED: hydrALAZINE HCL 50 MG TABLET (FP) PO ONE (01:53)
[2021-12-06] MEDS: morphine SULFATE 4 MG/ML VIAL IVPUSH PRN ×3 (05:29→21:44)
[2021-12-06] MEDS: INSULIN SLIDING SCALE (NOVOLOG) 1 VIAL SQ SCH ×4 (06:06→21:47)
[2021-12-06] MEDS ORDERED: HYDROCHLOROTHIAZIDE 12.5 MG CAPSULE (FP) PO SCH (07:00)
[2021-12-06 08:23] LABS: HEMATOCRIT 34.9 % (32.4-45.2); HEMOGLOBIN 12.4 GM/dL (10.7-15.3); MCH 27.6 pg (25.7-33.7); MCHC 35.6 g/dl (32.0-36.0); MEAN CELL VOLUME 77.5 fl (80-96); MEAN PLT VOLUME 8.3 fl (7.5-11.1); PLATELET COUNT 312 10^3/uL (134-434); RBC 4.51 M/mm3 (3.60-5.2); RDW 18.3 % (11.6-15.6); WHITE BLOOD COUNT 17.1 K/mm3 (4.0-10.0)
[2021-12-06 08:44] LABS: ALBUMIN 3.7 g/dl (3.4-5.0); BLOOD UREA NITROGEN 8.8 mg/dL (7-18)
[2021-12-06 08:47] LABS: CREATININE 0.5 mg/dL (0.55-1.3)
[2021-12-06 08:49] LABS: BILIRUBIN,TOTAL 1.4 mg/dL (0.2-1); TOT PROT 7.8 g/dl (6.4-8.2)
[2021-12-06] MEDS: ENOXAPARIN NA (PORCINE) 40 MG/0.4 ML DISP.SYRIN SQ SCH (10:18)
[2021-12-06] MEDS: amLODIPine BESYLATE 5 MG TABLET (FP) PO SCH ×2 (10:18→21:45)
[2021-12-06] MEDS: DULoxetine HCL 30 MG CAPSULE.DR PO SCH (10:18)
[2021-12-06] MEDS: LACTATED RINGERS SOLUTION 1,000 ML/1,000 ML INFUS.BAG IV SCH ×2 (12:56→23:22)
[2021-12-06] MEDS: IBUPROFEN 400 MG TABLET (FP) PO PRN (18:09)
[2021-12-06] MEDS: MIRTAZAPINE 15 MG TABLET (FP) PO SCH (21:45)
[2021-12-06] MEDS ORDERED: amLODIPine BESYLATE 5 MG TABLET (FP) PO SCH (23:00)
[2021-12-06] MEDS ORDERED: hydrALAZINE HCL 50 MG TABLET (FP) PO SCH (23:00)
[2021-12-06] MEDS ORDERED: hydrALAZINE HCL 20 MG/ML VIAL IVPUSH ONE (23:17)
[2021-12-06] MEDS: HYDROmorphone HCl 2 MG/ML VIAL IVPUSH PRN (23:32)
[2021-12-07] MEDS: hydrALAZINE HCL 50 MG TABLET (FP) PO SCH ×4 (00:03→21:07)
[2021-12-07] MEDS ORDERED: hydrALAZINE HCL 50 MG TABLET (FP) PO SCH (06:00)
[2021-12-07] MEDS: INSULIN SLIDING SCALE (NOVOLOG) 1 VIAL SQ SCH ×4 (06:01→21:17)
[2021-12-07] MEDS: HYDROmorphone HCl 2 MG/ML VIAL IVPUSH PRN ×3 (06:29→21:07)
[2021-12-07 08:57] LABS: HEMATOCRIT 36.3 % (32.4-45.2); HEMOGLOBIN 12.5 GM/dL (10.7-15.3); MCHC 34.5 g/dl (32.0-36.0); MEAN CELL VOLUME 78.3 fl (80-96); MEAN PLT VOLUME 8.6 fl (7.5-11.1); PLATELET COUNT 297 10^3/uL (134-434); RBC 4.64 M/mm3 (3.60-5.2); RDW 18.5 % (11.6-15.6); WHITE BLOOD COUNT 17.7 K/mm3 (4.0-10.0)
[2021-12-07 09:26] LABS: ALBUMIN 3.5 g/dl (3.4-5.0); BLOOD UREA NITROGEN 12.6 mg/dL (7-18)
[2021-12-07 09:29] LABS: CREATININE 0.5 mg/dL (0.55-1.3)
[2021-12-07 09:30] LABS: BILIRUBIN,TOTAL 1.8 mg/dL (0.2-1); TOT PROT 7.6 g/dl (6.4-8.2)
[2021-12-07] MEDS: ENOXAPARIN NA (PORCINE) 40 MG/0.4 ML DISP.SYRIN SQ SCH (09:59)
[2021-12-07] MEDS: DULoxetine HCL 30 MG CAPSULE.DR PO SCH (09:59)
[2021-12-07] MEDS: amLODIPine BESYLATE 5 MG TABLET (FP) PO SCH ×2 (09:59→21:07)
[2021-12-07] MEDS: morphine SULFATE 4 MG/ML VIAL IVPUSH PRN ×2 (10:18→18:52)
[2021-12-07] MEDS: ONDANSETRON 4 MG/2 ML VIAL IVPUSH PRN (14:21)
[2021-12-07] MEDS: MIRTAZAPINE 15 MG TABLET (FP) PO SCH (21:06)
[2021-12-08] MEDS: HYDROmorphone HCl 2 MG/ML VIAL IVPUSH PRN (05:29)
[2021-12-08] MEDS: hydrALAZINE HCL 50 MG TABLET (FP) PO SCH ×3 (05:51→22:24)
[2021-12-08] MEDS: INSULIN SLIDING SCALE (NOVOLOG) 1 VIAL SQ SCH ×5 (05:56→22:24)
[2021-12-08 07:49] LABS: HEMATOCRIT 33.2 % (32.4-45.2); HEMOGLOBIN 11.8 GM/dL (10.7-15.3); MCH 27.4 pg (25.7-33.7); MCHC 35.4 g/dl (32.0-36.0); MEAN CELL VOLUME 77.2 fl (80-96); MEAN PLT VOLUME 8.2 fl (7.5-11.1); PLATELET COUNT 214 10^3/uL (134-434); WHITE BLOOD COUNT 18.8 K/mm3 (4.0-10.0)
[2021-12-08 08:08] LABS: ALBUMIN 3.3 g/dl (3.4-5.0); CALCIUM 8.9 mg/dL (8.5-10.1)
[2021-12-08 08:09] LABS: BLOOD UREA NITROGEN 23.8 mg/dL (7-18)
[2021-12-08 08:10] LABS: BILIRUBIN,TOTAL 2.7 mg/dL (0.2-1)
[2021-12-08] MEDS: ENOXAPARIN NA (PORCINE) 40 MG/0.4 ML DISP.SYRIN SQ SCH (10:51)
[2021-12-08] MEDS: amLODIPine BESYLATE 5 MG TABLET (FP) PO SCH ×2 (10:51→22:24)
[2021-12-08] MEDS: IBUPROFEN 400 MG TABLET (FP) PO PRN (10:51)
[2021-12-08] MEDS: DULoxetine HCL 30 MG CAPSULE.DR PO SCH (10:51)
[2021-12-08 11:06] LABS: RETICULOCYTES 4.03 % (0.5-1.5)
[2021-12-08] MEDS ORDERED: PATIENT'S OWN MEDICATION (NON-FORMULARY) (Linaclotide [Linzess] 145 MCG Capsule) PO SCH (11:45)
[2021-12-08] MEDS: POLYETHYLENE GLYCOL (HEALTHYLAX) 3350 17 GM PACKET PO SCH ×2 (13:38→22:24)
[2021-12-08] MEDS: SENNOSIDES 8.6MG TABLET (FP) PO SCH ×2 (13:38→22:24)
[2021-12-08 17:07] LABS: HGB SOLUBILITY Positive (Negative)
[2021-12-08] MEDS: ONDANSETRON 4 MG/2 ML VIAL IVPUSH PRN (18:45)
[2021-12-08] MEDS: MIRTAZAPINE 15 MG TABLET (FP) PO SCH (22:23)
[2021-12-09] MEDS: hydrALAZINE HCL 50 MG TABLET (FP) PO SCH ×3 (06:11→22:33)
[2021-12-09] MEDS: INSULIN SLIDING SCALE (NOVOLOG) 1 VIAL SQ SCH ×4 (06:12→22:54)
[2021-12-09 08:11] LABS: HEMATOCRIT 36.9 % (32.4-45.2); HEMOGLOBIN 12.2 GM/dL (10.7-15.3); MCH 25.7 pg (25.7-33.7); MCHC 33.1 g/dl (32.0-36.0); MEAN CELL VOLUME 77.6 fl (80-96); MEAN PLT VOLUME 8.6 fl (7.5-11.1); PLATELET COUNT 297 10^3/uL (134-434); RBC 4.76 M/mm3 (3.60-5.2); RDW 18.2 % (11.6-15.6); WHITE BLOOD COUNT 22.6 K/mm3 (4.0-10.0)
[2021-12-09 09:43] LABS: BLOOD UREA NITROGEN 24.8 mg/dL (7-18); CALCIUM 9.5 mg/dL (8.5-10.1)
[2021-12-09 09:44] LABS: ALBUMIN 3.2 g/dl (3.4-5.0)
[2021-12-09] MEDS: HYDROmorphone HCl 2 MG/ML VIAL IVPUSH PRN ×2 (09:45→22:34)
[2021-12-09 09:46] LABS: CREATININE 0.8 mg/dL (0.55-1.3)
[2021-12-09] MEDS: POLYETHYLENE GLYCOL (HEALTHYLAX) 3350 17 GM PACKET PO SCH ×4 (09:49→22:32)
[2021-12-09] MEDS: DULoxetine HCL 30 MG CAPSULE.DR PO SCH ×2 (09:49→10:54)
[2021-12-09] MEDS: IBUPROFEN 400 MG TABLET (FP) PO PRN (09:49)
[2021-12-09] MEDS: SENNOSIDES 8.6MG TABLET (FP) PO SCH ×2 (09:49→09:58)
[2021-12-09] MEDS: ENOXAPARIN NA (PORCINE) 40 MG/0.4 ML DISP.SYRIN SQ SCH (09:50)
[2021-12-09] MEDS: ONDANSETRON 4 MG/2 ML VIAL IVPUSH PRN ×2 (09:50→22:35)
[2021-12-09] MEDS ORDERED: NAPROXEN 250 MG TABLET PO SCH (10:29)
[2021-12-09 13:42] LABS: BILIRUBIN,DIRECT 1.3 mg/dL (0.0-0.2)
[2021-12-09] MEDS: amLODIPine BESYLATE 5 MG TABLET (FP) PO SCH (22:33)
[2021-12-09] MEDS: MIRTAZAPINE 15 MG TABLET (FP) PO SCH (22:33)
[2021-12-10 04:00] VITALS: RESP 18; TEMP 98.9
[2021-12-10] MEDS: POLYETHYLENE GLYCOL (HEALTHYLAX) 3350 17 GM PACKET PO SCH ×2 (06:32→14:05)
[2021-12-10] MEDS: hydrALAZINE HCL 50 MG TABLET (FP) PO SCH ×3 (06:32→14:09)
[2021-12-10] MEDS: INSULIN SLIDING SCALE (NOVOLOG) 1 VIAL SQ SCH ×2 (06:37→12:42)
[2021-12-10 07:44] LABS: HEMATOCRIT 34.5 % (32.4-45.2); HEMOGLOBIN 11.4 GM/dL (10.7-15.3); MCH 25.9 pg (25.7-33.7); MCHC 32.9 g/dl (32.0-36.0); MEAN CELL VOLUME 78.5 fl (80-96); MEAN PLT VOLUME 8.6 fl (7.5-11.1); PLATELET COUNT 320 10^3/uL (134-434); RBC 4.39 M/mm3 (3.60-5.2); WHITE BLOOD COUNT 17.4 K/mm3 (4.0-10.0)
[2021-12-10 08:44] LABS: BLOOD UREA NITROGEN 18.8 mg/dL (7-18)
[2021-12-10 08:47] LABS: CREATININE 0.7 mg/dL (0.55-1.3)
[2021-12-10 08:49] LABS: BILIRUBIN,TOTAL 2.4 mg/dL (0.2-1); TOT PROT 6.6 g/dl (6.4-8.2)
[2021-12-10] MEDS: DULoxetine HCL 30 MG CAPSULE.DR PO SCH (10:27)
[2021-12-10] MEDS: ENOXAPARIN NA (PORCINE) 40 MG/0.4 ML DISP.SYRIN SQ SCH (10:27)
[2021-12-10 13:44] VITALS: PULSE 98
[2021-12-10 14:08] VITALS: BP 130/73
== END 2021-12-10 17:07 | disposition home or self-care (01) | DRG 812 ==
LOC: JER 21:45 → JERBED 12-04 03:39 → J6S 12-05 18:15 → J4W 12-06 03:53
PROVIDERS: ADMIT Internal Medicine; ATTEND Internal Medicine
DX: D57.00 Hb-SS disease with crisis, unspecified (principal); R73.9 Hyperglycemia, unspecified; I16.0 Hypertensive urgency; D72.829 Elevated white blood cell count, unspecified; K59.03 Drug induced constipation; F41.8 Other specified anxiety disorders; T40.2X5A Adverse effect of other opioids, initial encounter; Y92.89 Other specified places as the place of occurrence of the external cause
CPT/HCPCS: 36415; 71045-TC-FY; 71046-TC-FY; 76705-TC; 80053; 81003; 82248; 82550; 82553; 82962; 82977; 83010; 83021; 83036; 83615; 83735; 84100; 85025; 85027; 85045; 85660; 93005; 93010; 93971-TC; 97116-GP; 97162-GP; 99285-25; C9803-CS; U0003; U0005

== ENCOUNTER 2023-08-16 22:36 | Emergency (ER) | payer OTHER ==
[2023-08-16 22:39] VITALS: BP 134/69; PULSE 68; RESP 20; TEMP 98.2; BMI 33.5
[2023-08-16 23:56] LABS: BASO % 0.5 % (0-2.0); EOS % 2.2 % (0-4.5); HEMATOCRIT 31.1 % (32.4-45.2); HEMOGLOBIN 10.4 GM/dL (10.7-15.3); LYMPH % 27.4 % (8-40); MCH 26.5 pg (25.7-33.7); MCHC 33.4 g/dl (32.0-36.0); MEAN CELL VOLUME 79.2 fl (80-96); MEAN PLT VOLUME 8.2 fl (7.5-11.1); MONO % 6.6 % (3.8-10.2); NEUT % 63.3 % (42.8-82.8); PLATELET COUNT 391 10^3/uL (134-434); RBC 3.92 M/mm3 (3.60-5.2); RDW 18.6 % (11.6-15.6); WHITE BLOOD COUNT 11.8 K/mm3 (4.0-10.0)
[2023-08-17 00:07] LABS: POTASSIUM 4.5 mmol/L (3.5-5.1)
[2023-08-17 00:10] LABS: BLOOD UREA NITROGEN 18.2 mg/dL (7-18); CALCIUM 9.1 mg/dL (8.5-10.1); MAGNESIUM 2.3 mg/dL (1.8-2.4)
[2023-08-17 00:13] LABS: CREATININE 0.9 mg/dL (0.55-1.3)
[2023-08-17 00:15] LABS: BILIRUBIN,TOTAL 1.5 mg/dL (0.2-1); INR 1.02 (0.83-1.09); PROTHROMBIN TIME (PATIENT) 11.5 SEC (9.7-13.0); TOT PROT 8.1 g/dl (6.4-8.2)
[2023-08-17 00:17] LABS: ACTIVATED PTT 28.2 SECONDS (25.2-36.5)
[2023-08-17 00:19] LABS: N-TERMINAL BNP 55.4 pg/ml (5-125)
== END 2023-08-17 01:56 | disposition home or self-care (01) ==
LOC: JER 22:36
DX: R11.0 Nausea (principal); R55 Syncope and collapse; Z20.822 Contact with and (suspected) exposure to COVID-19
CPT/HCPCS: 0241U-QW; 36415; 71045-TC-FY; 80053; 83735; 83880; 84443; 84484; 85025; 85610; 85730; 93005; 93010; 99285-25